=== PATIENT | female | born 1955 | race Caucasian/White ===

== ENCOUNTER 2020-01-09 12:26 | Outpatient (CLI) | payer BC, SELFPAY ==
--- NOTE | ~2020-01-09 | MMUS_ITS ---
EXAMINATION: MM diagnostic hans BI w jair, US breast RT limited HISTORY: Abnormal mammogram. TECHNIQUE: Additional 3-D tomosynthesis images of the breasts were performed and synthetic 2-D images were generated. CAD analysis was submitted and interpreted. High resolution right breast ultrasound was performed. COMPARISON: Comparison to multiple prior studies sequentially, with oldest reviewed study dated 11/2016. FINDINGS: MAMMOGRAPHIC FINDINGS: The breasts are heterogenously dense, which may obscure small masses. There are no suspicious masses, calcifications or architectural distortion in either breast to suggest malignancy. ULTRASOUND: Right breast ultrasound: At 9:00, 6 cm from the nipple, there is a stable complicated cyst measuring 3 mm. At 9:00, 7 cm from the nipple, there is an oval circumscribed hypoechoic mass measuring 5 mm without posterior features. There are circumscribed margins with parallel orientation. There is an adjacent 3 mm cyst. IMPRESSION: 1. Probable benign right breast masses. 2. Recommend 6 month follow-up right breast ultrasound BI-RADS category 3, probably benign findings. Reviewed, dictated and finalized at location A. IMPRESSION: 1. Probable benign right breast masses. 2. Recommend 6 month follow-up right breast ultrasound BI-RADS category 3, probably benign findings.
== END 2020-01-09 12:27 | disposition home or self-care (01) ==
LOC: ANHIMG 12:30
PROVIDERS: PCP Family Medicine; Visit Provider Nurse Practitioner Obstetrics & Gynecology
DX: N63.10 Unspecified lump in the right breast, unspecified quadrant (principal)
CPT/HCPCS: 76642; 77062; 77066; G0279

== ENCOUNTER 2020-07-15 09:38 | Outpatient (CLI) | payer BC, SELFPAY ==
--- NOTE | ~2020-07-15 | US_ITS ---
EXAMINATION: US breast RT limited HISTORY: Six-month follow-up for probably benign right breast masses TECHNIQUE: Limited ultrasound was performed in the breast at the 9:00 location. COMPARISON: 01/09/2020, 05/26/2019, 09/27/2018 FINDINGS: There is a stable 5 mm x 3 mm oval, circumscribed, parallel, hypoechoic mass with no senior specialist ior features or internal vascularity at the 9:00 location 7 cm from the nipple. An adjacent 3 mm mass with similar sonographic features is also stable. IMPRESSION: Stable, probably benign right breast masses. Follow-up targeted right breast ultrasound in six months is recommended. BI-RADS category 3, probably benign findings. Reviewed, dictated and finalized at location A. THESIA TECH IMPRESSION: Stable, probably benign right breast masses. Follow-up targeted right breast ul trasound in six months is recommended. BI-RADS category 3, probably benign findings.
== END 2020-07-15 09:39 | disposition home or self-care (01) ==
PROVIDERS: PCP Internal Medicine; Visit Provider Surgery
DX: N63.10 Unspecified lump in the right breast, unspecified quadrant (principal); R92.8 Other abnormal and inconclusive findings on diagnostic imaging of breast
CPT/HCPCS: 76642

== ENCOUNTER 2021-01-13 10:14 | Outpatient (CLI) | payer MEDICARE, SELFPAY ==
--- NOTE | ~2021-01-13 | MM_ITS ---
EXAMINATION: MM screening hasn BI w jair HISTORY: Screening mammogram TECHNIQUE: Craniocaudal and mediolateral oblique 3-D tomosynthesis images were obtained and synthetic 2-D images were generated. CAD analysis was submitted and interpreted. COMPARISON: 07/15/2020, 01/09/2020, 05/26/2019, 09/27/2018, 04/05/2018 BREAST PARENCHYMAL COMPOSITION: The breasts are heterogeneously dense, which may obscure small masses . FINDINGS: There is no evidence of suspicious mass, calcification, or architectural distortion to sugg est malignancy in either breast. There has been no suspicious interval change. IMPRESSION: 1. No mammographic evidence of malignancy. 2. Recommend routine screening mammography in one year. Of note, patient is due for limited right sabino ast ultrasound for follow-up of probably benign sonographically detected masses. BI-RADS Category 1: Negative Reviewed, dictated and finalized at location A. IMPRESSION: 1. No mammographic evidence of malignancy. 2. Recommend routine screening mammography in one year. Of note, patient is due for limited right breast ultrasound for follow-up of probably benign sonograph ically detected masses. BI-RADS Category 1: Negative
== END 2021-01-13 10:15 | disposition home or self-care (01) ==
LOC: ANHIMG 10:20
PROVIDERS: PCP Internal Medicine; Visit Provider Surgery
DX: Z12.31 Encounter for screening mammogram for malignant neoplasm of breast (principal)
CPT/HCPCS: 77063; 77067

== ENCOUNTER 2021-02-12 12:52 | Outpatient (CLI) | payer MEDICARE, SELFPAY ==
--- NOTE | ~2021-02-12 | US_ITS ---
US breast RT limited DATE: 02/12/2021 13:24 INDICATION: Follow-up of right breast masses TECHNIQUE: High-resolution ultrasound imaging targeted at 9:00 6 cm from nipple mass and 9:00 7 cm fr om nipple mass. COMPARISON: 07/15/2020 limited right breast ultrasound 01/09/2020, 05/26/2019, 09/27/2018 bilateral diagnostic digital mammogram and limited right breast ultras ound 04/05/2018 diagnostic right digital mammogram and limited right breast ultrasound FINDINGS: 9:00 6 cm from nipple: 2 x 4 mm circumscribed parallel hypoechoic lesion with central linear hyperech oic septum, stable since 05/26/2019, most consistent with benign process. 9:00 7 cm from nipple: 3.5 x 6.2 mm parallel oval circumscribed solid mass without internal color shelia w signal or shadowing. This is increased in size from 2.5 x 5 mm approximate dimension on 05/26/2019. Ultrasound-guided biopsy is recommended for this is enlarging postmenopausal solid mass. IMPRESSION: BI-RADS Category 4: Suspicious abnormality; biopsy should be considered for enlarging werner id mass at 9:[address] Johnson telephoned the report and ultrasound guided biopsy recommendation on 02/22/20[address] Casanova's nurse Pat. Reviewed, dictated and finalized at Location A. Reviewed, dictated and finalized at location A. IMPRESSION: BI-RADS Category 4: Suspicious abnormality; biopsy should be consid ered for enlarging solid mass at 9:[address] Johnson telephoned the report and ultrasound guided biopsy recommendation on at [address] Casanova's nurse Pat.
== END 2021-02-12 12:53 | disposition home or self-care (01) ==
LOC: ANHIMG 12:56
PROVIDERS: PCP Internal Medicine; Visit Provider Surgery
DX: N63.10 Unspecified lump in the right breast, unspecified quadrant (principal); R92.8 Other abnormal and inconclusive findings on diagnostic imaging of breast
CPT/HCPCS: 76642

== ENCOUNTER 2021-07-09 10:01 | Outpatient (CLI) | payer MEDICARE, SELFPAY ==
[2021-07-09 10:19] LABS: Basophils Percent Auto 0.8 % (0.2-1.2); Eosinophils Absolute Auto 0.2 K/mm3 (0-0.3); Eosinophils Percent Auto 3.1 % (0-4.4); Hematocrit 42.7 % (37.0-47.0); Hemoglobin 14.4 g/dL (12.0-15.0); Immature Granulocyte Absolute 0.02 K/mm3 (0.00-0.031); Immature Granulocyte Percent A 0.4 % (0-0.5); Lymphocytes Absolute Auto 0.82 K/mm3 (0.9-3.2); Mean Corpuscular HGB Conc 33.7 g/dl (32-36); Mean Corpuscular Hemoglobin 29.4 pg (26-34); Mean Corpuscular Volume 87.1 fl (80-100); Monocytes Absolute Auto 0.5 K/mm3 (0.1-0.6); Monocytes Percent Auto 10.6 % (2.6-8.5); Neutrophils Absolute Auto 3.5 K/mm3 (1.3-6.7); Neutrophils Percent Auto 69.1 % (45.5-73.1); Platelet Count Result 198 k/mm3 (150-375); Red Cell Distribution Width 12.5 % (11.5-14.5); White Blood Count 5.1 K/mm3 (4.5-10.0)
[2021-07-09 10:23] LABS: Blood Urea Nitrogen 12 mg/dL (8-26); Carbon Dioxide 23 mmol/L (22-30); Chloride 104 mmol/L (98-109); Estimated Glomerular Filt Rate > 60; Glucose 103 mg/dL (70-105); Potassium 4.3 mmol/L (3.5-4.9); Sodium 141 mmol/L (138-146)
[2021-07-09 11:08] LABS: Alanine Aminotransferase 30 U/L (4-35); Albumin Level 4.6 g/dL (3.5-5.1); Alkaline Phosphatase 74 U/L (38-126); Anion Gap 9 mmol/L (8-16); Aspartate Amino Transferase 29 U/L (14-36); Bilirubin,Total 0.4 mg/dL (0.2-1.3); Blood Urea Nitrogen 12 mg/dL (7-17); Calcium 9.7 mg/dL (8.4-10.2); Carbon Dioxide 25 mmol/L (22-30); Chloride 106 mmol/L (98-107); Estimated Glomerular Filt Rate > 60; Glucose 103 mg/dL (65-110); Potassium 4.5 mmol/L (3.4-5.0); Sodium 140 mmol/L (137-145)
== END 2021-07-09 10:02 | disposition home or self-care (01) ==
PROVIDERS: PCP Internal Medicine; Visit Provider Internal Medicine Hematology & Oncology
DX: D05.11 Intraductal carcinoma in situ of right breast (principal)
CPT/HCPCS: 36415; 80048; 80053; 85025

== ENCOUNTER 2021-10-03 11:27 | Outpatient (CLI) | payer MEDICARE, SELFPAY ==
--- NOTE | ~2021-10-03 | MM_ITS ---
EXAMINATION: MM diagnostic hans RT w jair HISTORY: History of right breast cancer TECHNIQUE: Craniocaudal, mediolateral, and mediolateral oblique 3-D tomosynthesis images of the right breast were performed and synthetic 2-D images were generated. CAD analysis was submitted and interp reted. COMPARISON: 01/13/2021, 01/09/2020, 05/26/2019 BREAST PARENCHYMAL COMPOSITION: The breasts are heterogeneously dense, which may obscure small masses . FINDINGS: There are changes of interval lumpectomy in the outer breast. No suspicious mass, calcifica tion, or architectural distortion are identified. A stable asymmetry is seen in the posterior third o f the slightly outer breast. IMPRESSION: 1. Changes of interval lumpectomy without mammographic evidence of malignancy. 2. Routine screening mammography is recommended. BI-RADS Category 2: Benign finding(s). Reviewed, dictated and finalized at location A. [facility]
== END 2021-10-03 11:28 | disposition home or self-care (01) ==
PROVIDERS: PCP Internal Medicine; Referring Provider Surgery; Visit Provider Internal Medicine Hematology & Oncology
DX: D05.11 Intraductal carcinoma in situ of right breast (principal)
CPT/HCPCS: 77061; 77065; G0279

== ENCOUNTER 2021-11-04 12:41 | Outpatient (CLI) | payer MEDICARE, SELFPAY ==
[2021-11-04 12:53] LABS: Basophils Percent Auto 0.7 % (0.2-1.2); Eosinophils Absolute Auto 0.1 K/mm3 (0-0.3); Eosinophils Percent Auto 2.3 % (0-4.4); Hematocrit 41.9 % (37.0-47.0); Hemoglobin 13.7 g/dL (12.0-15.0); Immature Granulocyte Absolute 0.01 K/mm3 (0.00-0.031); Immature Granulocyte Percent A 0.2 % (0-0.5); Lymphocytes Absolute Auto 1.02 K/mm3 (0.9-3.2); Lymphocytes Percent Auto 23.2 % (18.3-44.2); Mean Corpuscular HGB Conc 32.7 g/dl (32-36); Mean Corpuscular Hemoglobin 29.5 pg (26-34); Mean Corpuscular Volume 90.3 fl (80-100); Mean Platelet Volume 10.1 fl (7.4-10.4); Monocytes Absolute Auto 0.4 K/mm3 (0.1-0.6); Monocytes Percent Auto 8.7 % (2.6-8.5); Neutrophils Absolute Auto 2.9 K/mm3 (1.3-6.7); Neutrophils Percent Auto 64.9 % (45.5-73.1); Platelet Count Result 183 k/mm3 (150-375); Red Blood Count 4.64 M/mm3 (4.2-5.4); Red Cell Distribution Width 12.2 % (11.5-14.5); White Blood Count 4.4 K/mm3 (4.5-10.0)
[2021-11-04 12:56] LABS: Blood Urea Nitrogen 14 mg/dL (8-26); Carbon Dioxide 25 mmol/L (22-30); Chloride 102 mmol/L (98-109); Estimated Glomerular Filt Rate > 60; Glucose 136 mg/dL (70-105); Potassium 3.8 mmol/L (3.5-4.9); Sodium 141 mmol/L (138-146)
[2021-11-04 14:46] LABS: Alanine Aminotransferase 23 U/L (4-35); Albumin Level 4.4 g/dL (3.5-5.1); Alkaline Phosphatase 74 U/L (38-126); Anion Gap 9 mmol/L (8-16); Aspartate Amino Transferase 29 U/L (14-36); Bilirubin,Total 0.4 mg/dL (0.2-1.3); Blood Urea Nitrogen 14 mg/dL (7-17); Calcium 9.3 mg/dL (8.4-10.2); Carbon Dioxide 26 mmol/L (22-30); Chloride 104 mmol/L (98-107); Estimated Glomerular Filt Rate > 60; Glucose 133 mg/dL (65-110); Potassium 3.8 mmol/L (3.4-5.0); Sodium 139 mmol/L (137-145)
== END 2021-11-04 12:42 | disposition home or self-care (01) ==
LOC: ANHLAB 12:43
PROVIDERS: PCP Internal Medicine; Visit Provider Internal Medicine Hematology & Oncology
DX: D05.11 Intraductal carcinoma in situ of right breast (principal)
CPT/HCPCS: 36415; 80053; 85025

== ENCOUNTER → 2022-01-21 10:50 | Outpatient (CLI) | payer MEDICARE, SELFPAY ==
--- NOTE | ~2022-01-21 | DEXA_ITS ---
Bone Density Report Name: LIAN LOPEZ Age: 66 Sex: Female Ethnicity: White Date of : 1955 Indication: osteopenia; parental hip fracture; cancer; hysterectomy; postmenopausal Referring Provider: Manny, Salena Keith Study: Bone densitometry was performed. Exam Date: January 21, 2022 Accession number: [id number] Bone Density: Region BMD T-score Z-score Classification AP Spine (L1-L4) 0.772 -2.5 -0.7 Osteoporosis Femoral Neck (Left) 0.690 -1.4 0.1 Osteopenia Total Hip (Left) 0.848 -0.8 0.5 Normal Femoral Neck (Right) 0.652 -1.8 -0.2 Osteopenia Total Hip (Right) 0.824 -1.0 0.3 Normal Total Hip Mean 0.836 -0.9 0.4 Normal World Health Organization criteria for BMD impression classify patients as: Normal (T-score at or above -1.0), Osteopenia (T-score between -1.0 and -2.5), or Osteoporosis (T-score at or below -2.5). 10-year Fracture Risk: FRAX not reported because: Some T-score for Spine Total or Hip Total or Femoral Neck at or below -2.5 Previous Exams: Region Exam Age BMD T-score BMD Change BMD Change Date g/cm2 vs Baseline vs Previous AP Spine(L1-L4) 01/21/2022 66 0.772 -2.5 -0.094* -0.049 11/06/2016 60 0.821 -2.1 -0.045 -0.045 08/25/2007 51 0.866 -1.6 Total Hip(Left) 01/21/2022 66 0.848 -0.8 -0.133* -0.003 11/06/2016 60 0.851 -0.7 -0.131 -0.131 08/25/2007 51 0.982 0.3 Total Hip(Right) 01/21/2022 66 0.824 -1.0 -0.107* -0.020 11/06/2016 60 0.844 -0.8 -0.087 -0.087 08/25/2007 51 0.931 -0.1 *Denotes significance at 95% confidence level, LSC for AP Spine = 0.022 g/cm2, LSC for Total Hip = 0.027 g/cm2 Clinical Information Provided by Patient: Parent has had a hip fracture Has used the following medications: Vitamin D, Calcium, TOMOXIFEN Has the following medical conditions: Cancer, Hysterectomy Patient maximum height was 64 Menopause Age: 40 Drinks caffeinated beverages Onset of menses at age 13 Number of children 0 Impression: The patient has osteoporosis, based on the Total Spine T-score. The patient has risk factors, including: parental hip fracture. No significant bone loss was observed. Discussion: INCREASED RISK OF FRACTURE. BONE DENSITY IS UNDESIRABLY LOW AT ONE OR MORE SKELETAL SITES, CONSISTENT WITH POSTMENOPAUSAL OSTEOPOROSIS. This patient's lowest T-score meets the World Health Organizat
== END ==
PROVIDERS: PCP Internal Medicine; Visit Provider Nurse Practitioner Obstetrics & Gynecology
DX: Z78.0 Asymptomatic menopausal state (principal); M81.0 Age-related osteoporosis without current pathological fracture; M85.852 Other specified disorders of bone density and structure, left thigh; M85.851 Other specified disorders of bone density and structure, right thigh
CPT/HCPCS: 77080

== ENCOUNTER 2022-02-04 09:49 | Outpatient (CLI) | payer MEDICARE, SELFPAY ==
[2022-02-04 10:49] LABS: Basophils Percent Auto 0.6 % (0.2-1.2); Eosinophils Absolute Auto 0.1 K/mm3 (0-0.3); Eosinophils Percent Auto 2.1 % (0-4.4); Hematocrit 42.8 % (37.0-47.0); Hemoglobin 14.1 g/dL (12.0-15.0); Immature Granulocyte Absolute 0.02 K/mm3 (0.00-0.031); Immature Granulocyte Percent A 0.4 % (0-0.5); Lymphocytes Absolute Auto 1.24 K/mm3 (0.9-3.2); Lymphocytes Percent Auto 23.6 % (18.3-44.2); Mean Corpuscular HGB Conc 32.9 g/dl (32-36); Mean Corpuscular Hemoglobin 29.6 pg (26-34); Mean Corpuscular Volume 89.9 fl (80-100); Mean Platelet Volume 10.3 fl (7.4-10.4); Monocytes Absolute Auto 0.5 K/mm3 (0.1-0.6); Monocytes Percent Auto 9.5 % (2.6-8.5); Neutrophils Absolute Auto 3.4 K/mm3 (1.3-6.7); Neutrophils Percent Auto 63.8 % (45.5-73.1); Platelet Count Result 179 k/mm3 (150-375); Red Blood Count 4.76 M/mm3 (4.2-5.4); Red Cell Distribution Width 12.2 % (11.5-14.5); White Blood Count 5.3 K/mm3 (4.5-10.0)
[2022-02-04 10:56] LABS: Estimated Glomerular Filt Rate > 60
[2022-02-04 13:19] LABS: Alanine Aminotransferase 21 U/L (6-35); Albumin Level 4.6 g/dL (3.5-5.1); Alkaline Phosphatase 91 U/L (38-126); Anion Gap 8 mmol/L (8-16); Aspartate Amino Transferase 28 U/L (14-36); Bilirubin,Total 0.3 mg/dL (0.2-1.3); Blood Urea Nitrogen 18 mg/dL (7-17); Calcium 9.5 mg/dL (8.4-10.2); Carbon Dioxide 24 mmol/L (22-30); Chloride 108 mmol/L (98-107); Glucose 95 mg/dL (65-110); Potassium 4.1 mmol/L (3.4-5.0); Sodium 140 mmol/L (137-145)
== END 2022-02-04 09:50 | disposition home or self-care (01) ==
LOC: ANHLAB 09:51
PROVIDERS: PCP Internal Medicine; Visit Provider Internal Medicine Hematology & Oncology
DX: D05.11 Intraductal carcinoma in situ of right breast (principal)
CPT/HCPCS: 36415; 80053; 85025

== ENCOUNTER 2022-04-23 09:24 | Outpatient (CLI) | payer MEDICARE, SELFPAY ==
--- NOTE | ~2022-04-23 | MM_ITS ---
EXAMINATION: MM screening hans BI w jair HISTORY: Screening mammogram TECHNIQUE: Craniocaudal and mediolateral oblique 3-D tomosynthesis images were obtained and synthetic 2-D images were generated. CAD analysis was submitted and interpreted. COMPARISON: 10/03/2021 diagnostic right mammogram 02/12/2021 Limited right breast ultrasound 01/13/2021 bilateral screening mammogram 07/15/2020 limited right breast ultrasound 01/09/2020 diagnostic bilateral mammogram and limited right breast ultrasound 05/26/2019 bilateral diagnostic mammography and limited right breast ultrasound BREAST PARENCHYMAL COMPOSITION: The breasts are heterogeneously dense, which may obscure small masses . FINDINGS: There is a rounded fatty density 2.4 cm dimension in the outer mid right breast with surrou nding linear projections, consistent with postsurgical change including large oil cyst. No suspicious mass, architectural distortion, malignant calcification, skin thickening or retraction is noted otherwise. IMPRESSION: 1. Postoperative change of right breast. No mammographic evidence of malignancy. 2. Recommend routine screening mammography in one year. BI-RADS Category 2: Benign finding(s). Reviewed, dictated and finalized at location A. IMPRESSION: 1. Postoperative change of right breast. No mammographic evidence of malignancy . 2. Recommend routine screening mammography in one year. BI-RADS Category 2: Benign finding(s).
== END 2022-04-23 09:25 | disposition home or self-care (01) ==
PROVIDERS: PCP Internal Medicine; Visit Provider Surgery
DX: Z12.31 Encounter for screening mammogram for malignant neoplasm of breast (principal)
CPT/HCPCS: 77063; 77067

== ENCOUNTER 2022-06-10 12:43 | Outpatient (CLI) | payer MEDICARE, SELFPAY ==
[2022-06-10 13:05] LABS: Basophils Percent Auto 0.7 % (0.2-1.2); Eosinophils Absolute Auto 0.2 K/mm3 (0-0.3); Eosinophils Percent Auto 2.6 % (0-4.4); Hematocrit 44.1 % (37.0-47.0); Hemoglobin 14.2 g/dL (12.0-15.0); Immature Granulocyte Absolute 0.01 K/mm3 (0.00-0.031); Immature Granulocyte Percent A 0.2 % (0-0.5); Lymphocytes Absolute Auto 1.47 K/mm3 (0.9-3.2); Lymphocytes Percent Auto 25.4 % (18.3-44.2); Mean Corpuscular HGB Conc 32.2 g/dl (32-36); Mean Corpuscular Hemoglobin 29.3 pg (26-34); Mean Corpuscular Volume 91.1 fl (80-100); Mean Platelet Volume 10.3 fl (7.4-10.4); Monocytes Absolute Auto 0.4 K/mm3 (0.1-0.6); Monocytes Percent Auto 7.6 % (2.6-8.5); Neutrophils Absolute Auto 3.7 K/mm3 (1.3-6.7); Neutrophils Percent Auto 63.5 % (45.5-73.1); Platelet Count Result 187 k/mm3 (150-375); Red Blood Count 4.84 M/mm3 (4.2-5.4); Red Cell Distribution Width 12.3 % (11.5-14.5); White Blood Count 5.8 K/mm3 (4.5-10.0)
[2022-06-10 13:09] LABS: Blood Urea Nitrogen 15 mg/dL (8-26); Carbon Dioxide 26 mmol/L (22-30); Chloride 103 mmol/L (98-109); Estimated Glomerular Filt Rate > 60; Glucose 108 mg/dL (70-105); Ionized Calcium (POC) 1.26 mmol/L (1.11-1.31); Potassium 3.8 mmol/L (3.5-4.9); Sodium 143 mmol/L (138-146)
[2022-06-10 13:33] LABS: Alanine Aminotransferase 25 U/L (6-35); Albumin Level 4.5 g/dL (3.5-5.1); Alkaline Phosphatase 79 U/L (38-126); Anion Gap 15 mmol/L (8-16); Aspartate Amino Transferase 41 U/L (14-36); Bilirubin,Total 0.3 mg/dL (0.2-1.3); Blood Urea Nitrogen 15 mg/dL (7-17); Calcium 9.4 mg/dL (8.4-10.2); Carbon Dioxide 25 mmol/L (22-30); Chloride 102 mmol/L (98-107); Estimated Glomerular Filt Rate > 60; Glucose 108 mg/dL (65-110); Potassium 3.8 mmol/L (3.4-5.0); Sodium 142 mmol/L (137-145)
== END 2022-06-10 12:44 | disposition home or self-care (01) ==
LOC: ANHLAB 12:46
PROVIDERS: PCP Internal Medicine; Visit Provider Internal Medicine Hematology & Oncology
DX: D05.11 Intraductal carcinoma in situ of right breast (principal)
CPT/HCPCS: 36415; 80047; 80053; 85025

== ENCOUNTER 2022-12-02 14:14 | Outpatient (CLI) | payer MEDICARE, SELFPAY ==
[2022-12-02 14:21] LABS: Basophils Percent Auto 0.4 % (0.2-1.2); Eosinophils Absolute Auto 0.1 K/mm3 (0-0.3); Eosinophils Percent Auto 0.9 % (0-4.4); Hemoglobin 13.1 g/dL (12.0-15.0); Immature Granulocyte Absolute 0.01 K/mm3 (0.00-0.031); Immature Granulocyte Percent A 0.1 % (0-0.5); Lymphocytes Absolute Auto 1.14 K/mm3 (0.9-3.2); Lymphocytes Percent Auto 14.4 % (18.3-44.2); Mean Corpuscular HGB Conc 32.8 g/dl (32-36); Mean Corpuscular Hemoglobin 30.2 pg (26-34); Mean Corpuscular Volume 92.2 fl (80-100); Mean Platelet Volume 10.2 fl (7.4-10.4); Monocytes Absolute Auto 0.5 K/mm3 (0.1-0.6); Monocytes Percent Auto 6.3 % (2.6-8.5); Neutrophils Absolute Auto 6.2 K/mm3 (1.3-6.7); Neutrophils Percent Auto 77.9 % (45.5-73.1); Platelet Count Result 167 k/mm3 (150-375); Red Blood Count 4.34 M/mm3 (4.2-5.4); White Blood Count 7.9 K/mm3 (4.5-10.0)
[2022-12-02 14:25] LABS: Blood Urea Nitrogen 9 mg/dL (8-26); Carbon Dioxide 28 mmol/L (22-30); Chloride 102 mmol/L (98-109); Estimated Glomerular Filt Rate > 60; Glucose 116 mg/dL (70-105); Ionized Calcium (POC) 1.19 mmol/L (1.11-1.31); Potassium 3.7 mmol/L (3.5-4.9); Sodium 141 mmol/L (138-146)
[2022-12-02 16:27] LABS: Alanine Aminotransferase 30 U/L (6-35); Albumin Level 4.3 g/dL (3.5-5.1); Alkaline Phosphatase 51 U/L (38-126); Anion Gap 6 mmol/L (8-16); Aspartate Amino Transferase 27 U/L (14-36); Bilirubin,Total 0.4 mg/dL (0.2-1.3); Blood Urea Nitrogen 10 mg/dL (7-17); Calcium 8.9 mg/dL (8.4-10.2); Carbon Dioxide 30 mmol/L (22-30); Chloride 104 mmol/L (98-107); Estimated Glomerular Filt Rate > 60; Glucose 116 mg/dL (65-110); Potassium 3.8 mmol/L (3.4-5.0); Sodium 140 mmol/L (137-145)
== END 2022-12-02 14:15 | disposition home or self-care (01) ==
LOC: ANHLAB 14:17
PROVIDERS: PCP Internal Medicine; Visit Provider Internal Medicine Hematology & Oncology
DX: D05.11 Intraductal carcinoma in situ of right breast (principal)
CPT/HCPCS: 36415; 80047; 80053; 85025

== ENCOUNTER 2023-03-18 14:03 | Outpatient (CLI) | payer MEDICARE, SELFPAY ==
--- NOTE | 2023-03-23 11:51 | WPDHOLTEREM ---
Holter/Event Monitor Holter/Event Monitor Date of procedure: 03/18/23 Holter/Event Procedure: 48 Hr Holter Monitor Indications: Palpitations Conclusion: 1. 48 hour holter monitor on 03/18/23. 2. Predominant rhythm is sinus rhythm. HR range 49-133 bpm; average HR 82 bpm. 3. There are 287 premature supraventricular complexes and 18 supraventricular couplets. There are 11 episodes of atrial tachycardia, fastest at 188 bpm and longest lasting 9 beats. 4. There are 328 premature ventricular complexes and 15 ventricular trigeminy. No ventricular tachycardia. 5. No sinoatrial or atrioventricular blocks. No significant pauses greater than 2 secods. 6. No symptoms available for correlation.
== END 2023-03-18 14:04 | disposition home or self-care (01) ==
PROVIDERS: PCP Internal Medicine; Visit Provider Internal Medicine
DX: R00.2 Palpitations (principal)
CPT/HCPCS: 93225; 93226

== ENCOUNTER 2023-04-06 01:24 | Day surgery (SDC) | payer MEDICARE, SELFPAY ==
[2023-03-24 14:12] VITALS: BMI 31.0
[2023-04-06 07:51] VITALS: BP 136/73; PULSE 74; RESP 16; TEMP 36.3; O2SAT 98; BMI 32.3
[2023-04-06] MEDS: LACTATED RINGERS 1,000 ML 150 ML IV CONT (08:08)
--- NOTE | 2023-04-06 08:31 | WPDANESEPPF ---
Anes - Initial Pre Proc Eval Procedure: Operation Date: 04/06/23 09:15 Proposed Procedures p Esophagogastroduodenoscopy - Yogesh Matias MD Date/Time: 04/06/23 08:31 Surgeon: Yogesh Matias MD Pre Op Diagnosis: dysphagia Patient Data Age: 67 Gender: F Height: 1.6 m Weight: 82.9 kg Last Vital Signs Temp 97.4 F L 04/06/23 07:51 Pulse 74 04/06/23 07:51 Resp 16 04/06/23 07:51 BP 136/73 04/06/23 07:51 Pulse Ox 98 04/06/23 07:51 O2 Del Method Room Air 04/06/23 07:51 Allergies Allergy/AdvReac Type Severity Reaction Status Date / Time codeine Allergy Mild Vomiting Verified 04/06/23 07:49 erythromycin base Allergy Mild Hives Verified 04/06/23 07:49 Penicillins Allergy Mild Hives Verified 04/06/23 07:49 Home Medications Medication Instructions Recorded Confirmed Type ascorbate calcium (vitamin C) 500 500 mg PO DAILY 08/17/19 04/06/23 History mg tablet cholecalciferol (vitamin D3) 25 1,000 unit PO DAILY 08/17/19 04/06/23 History mcg (1,000 unit) capsule (Vitamin D3) magnesium gluconate 27 mg 27 mg PO BID 08/17/19 04/06/23 History magnesium (500 mg) tablet (Mag-G) multivitamin 1 tablet PO DAILY 08/17/19 04/06/23 History biotin 2,500 mcg capsule 5,000 mg PO DAILY 02/18/22 04/06/23 History alendronate 70 mg tablet (Fosamax) 70 mg PO WEEKLY 04/24/22 04/06/23 History cetirizine 10 mg capsule (Zyrtec) 10 mg PO DAILY 07/22/22 04/06/23 History tamoxifen 20 mg tablet 20 mg PO DAILY 07/22/22 04/06/23 History levothyroxine 150 mcg tablet 150 mcg PO DAILY #90 tabs 01/06/23 04/06/23 Rx alprazolam 0.5 mg tablet 0.5 mg PO DAILY PRN anxiety #30 03/03/23 04/06/23 Rx tabs ibuprofen 200 mg tablet 400 mg PO HS PRN other 03/24/23 04/06/23 History melatonin 3 mg tablet 3 mg PO HS PRN Insomnia 03/24/23 04/06/23 History zinc 50 mg tablet 50 mg PO DAILY 03/24/23 04/06/23 History Patient hx anesthesia problems: none Family hx anesthesia problems: none Results Review: All pre-operative results and documents have been reviewed as part of the pre-operative evaluation. PMFSH Past Medical History Medical History Hypothyroidism Surgical History Surgical History H/O repair of right rotator cuff (~2010) H/O: hysterectomy History of appendectomy Status post right breast lumpectomy 04/14/2021, 2.5 cm G1 DCIS Family History Family History Sibling Family history of lupus erythematosus Father Prostate carcinoma Melanoma Other Gastric cancer Maternal Uncle Other Breast cancer Paternal Aunts x 2 Social History Social History Smoking status: Never smoker Second hand tobacco smoke exposure: No Alcohol intake: never Substance use: never Substance use type: does not use Lack of Transportation: No Lack of Food: Never True Current Housing: I Have Housing Concerned About Future Housing: No Difficulty Paying Gas/Electric Bills: No Difficulty Paying for Meds: No Currently Unemployed: No Education: Associate Degree Difficulty w/ Childcare or Family Care: No Living arrangements: alone Spiritual care concerns: No Anes - Eval Final PreProcedure Day of Procedure 04/06/23 08:31 Patient weight: normal Heart: regular rate and rhythm Lungs: clear to auscultation Airway: Mallampati scale class II Neurological: alert and oriented Last oral intake: >/= 8 hours ASA classification: III Emergent: no Anesthetic plan: proceed Anesthesia type and monitoring: general GIVS and standard monitoring Results Review: All pre-operative results and documents have been reviewed as part of the pre-operative evaluation. Informed Consent: The patient's anesthetic plan and its attendant risks and benefits were discussed with the patient/family/POA. Qu
--- NOTE | 2023-04-06 08:32 | PM.HPGS ---
History of Present Illness History of Present Illness Consent: Risks, benefits, and alternatives have been discussed and questions answered. Patient agrees to proceed with procedure. Chief complaint: dysphagia Narrative: Christelle Maira is a 67 year old female Referred for EGD because of dysphagia. Patient reports she swallows food without difficulty. Occasionally when she swallows liquids she will cough and choke. She sometimes cannot get her breath. She has to be careful of this consistently. She denies any weight loss. She has had no bleeding. This been present for perhaps several years. Review of Systems Review of Systems: review of systems noncontributory. [facility] Past Medical History Medical History Hypothyroidism Surgical History Surgical History H/O repair of right rotator cuff (~2010) H/O: hysterectomy History of appendectomy Status post right breast lumpectomy 04/14/2021, 2.5 cm G1 DCIS Family History Family History Sibling Family history of lupus erythematosus Father Prostate carcinoma Melanoma Other Gastric cancer Maternal Uncle Other Breast cancer Paternal Aunts x 2 Social History Social History Smoking status: Never smoker Second hand tobacco smoke exposure: No Alcohol intake: never Substance use: never Substance use type: does not use Lack of Transportation: No Lack of Food: Never True Current Housing: I Have Housing Concerned About Future Housing: No Difficulty Paying Gas/Electric Bills: No Difficulty Paying for Meds: No Currently Unemployed: No Education: Associate Degree Difficulty w/ Childcare or Family Care: No Living arrangements: alone Spiritual care concerns: No Meds Home Medications and Allergies Home Medications Medication Instructions Recorded Confirmed Type ascorbate calcium (vitamin C) 500 500 mg PO DAILY 08/17/19 04/06/23 History mg tablet cholecalciferol (vitamin D3) 25 1,000 unit PO DAILY 08/17/19 04/06/23 History mcg (1,000 unit) capsule (Vitamin D3) magnesium gluconate 27 mg 27 mg PO BID 08/17/19 04/06/23 History magnesium (500 mg) tablet (Mag-G) multivitamin 1 tablet PO DAILY 08/17/19 04/06/23 History biotin 2,500 mcg capsule 5,000 mg PO DAILY 02/18/22 04/06/23 History alendronate 70 mg tablet (Fosamax) 70 mg PO WEEKLY 04/24/22 04/06/23 History cetirizine 10 mg capsule (Zyrtec) 10 mg PO DAILY 07/22/22 04/06/23 History tamoxifen 20 mg tablet 20 mg PO DAILY 07/22/22 04/06/23 History levothyroxine 150 mcg tablet 150 mcg PO DAILY #90 tabs 01/06/23 04/06/23 Rx alprazolam 0.5 mg tablet 0.5 mg PO DAILY PRN anxiety #30 03/03/23 04/06/23 Rx tabs ibuprofen 200 mg tablet 400 mg PO HS PRN other 03/24/23 04/06/23 History melatonin 3 mg tablet 3 mg PO HS PRN Insomnia 03/24/23 04/06/23 History zinc 50 mg tablet 50 mg PO DAILY 03/24/23 04/06/23 History Allergies Allergy/AdvReac Type Severity Reaction Status Date / Time codeine Allergy Mild Vomiting Verified 04/06/23 07:49 erythromycin base Allergy Mild Hives Verified 04/06/23 07:49 Penicillins Allergy Mild Hives Verified 04/06/23 07:49 Vital Signs Vital Signs - 24 hr 04/06/23 07:51 Temperature 97.4 F L Pulse Rate 74 Respiratory Rate 16 Blood Pressure 136/73 Pulse Oximetry 98 Oxygen Delivery Room Air Exam Narrative: Physical exam reveals patient to be alert. Vital signs stable. HEENT exam is unremarkable. Patient is anicteric. Lungs are clear to auscultation and percussion. Heart is without murmur or extra sounds. Abdomen bowel sounds are present soft nontender with no organomegaly. Assessment and Plan Assessment and plan (1) Dysphagia: Code(s): R13.10 - Dysphagia, unspecified Status: Acu
[2023-04-06 09:19] VITALS: BP 126/64; PULSE 75; RESP 23; O2SAT 95
[2023-04-06 09:29] VITALS: BP 134/82; PULSE 73; RESP 22; O2SAT 96
[2023-04-06 09:39] VITALS: BP 128/80; PULSE 69; RESP 19; O2SAT 94
== END 2023-04-06 09:47 | disposition home or self-care (01) ==
PROVIDERS: PCP Internal Medicine; Visit Provider Internal Medicine Gastroenterology
PROC: 0DJ08ZZ Inspection of Upper Intestinal Tract, Via Natural or Artificial Opening Endoscopic (ICD-10-PCS; CPT 43235; principal; 2023-04-06 09:15)
DX: Q39.4 Esophageal web (principal); K44.9 Diaphragmatic hernia without obstruction or gangrene; E03.9 Hypothyroidism, unspecified; Z85.3 Personal history of malignant neoplasm of breast
CPT/HCPCS: 43450; 43235; J2704; J7120

== ENCOUNTER 2023-04-27 14:07 | Outpatient (CLI) | payer MEDICARE, SELFPAY ==
[2023-04-27 14:20] LABS: Basophils Absolute Auto 0.1 K/mm3 (0.0-0.1); Basophils Percent Auto 0.7 % (0.2-1.2); Eosinophils Absolute Auto 0.1 K/mm3 (0-0.3); Eosinophils Percent Auto 1.5 % (0-4.4); Hemoglobin 13.3 g/dL (12.0-15.0); Immature Granulocyte Absolute 0.02 K/mm3 (0.00-0.031); Immature Granulocyte Percent A 0.3 % (0-0.5); Lymphocytes Absolute Auto 1.83 K/mm3 (0.9-3.2); Lymphocytes Percent Auto 25.8 % (18.3-44.2); Mean Corpuscular HGB Conc 33.3 g/dl (32-36); Mean Corpuscular Volume 90.3 fl (80-100); Mean Platelet Volume 10.1 fl (7.4-10.4); Monocytes Absolute Auto 0.5 K/mm3 (0.1-0.6); Monocytes Percent Auto 6.5 % (2.6-8.5); Neutrophils Absolute Auto 4.6 K/mm3 (1.3-6.7); Neutrophils Percent Auto 65.2 % (45.5-73.1); Platelet Count Result 182 k/mm3 (150-375); Red Blood Count 4.43 M/mm3 (4.2-5.4); Red Cell Distribution Width 12.3 % (11.5-14.5); White Blood Count 7.1 K/mm3 (4.5-10.0)
[2023-04-27 16:47] LABS: Alanine Aminotransferase 32 U/L (6-35); Alkaline Phosphatase 59 U/L (38-126); Anion Gap 5 mmol/L (8-16); Aspartate Amino Transferase 30 U/L (14-36); Bilirubin,Total 0.2 mg/dL (0.2-1.3); Blood Urea Nitrogen 15 mg/dL (7-17); Calcium 8.8 mg/dL (8.4-10.2); Carbon Dioxide 25 mmol/L (22-30); Chloride 106 mmol/L (98-107); Estimated Glomerular Filt Rate > 60; Glucose 126 mg/dL (65-110); Potassium 3.9 mmol/L (3.4-5.0); Sodium 136 mmol/L (137-145)
== END 2023-04-27 14:08 | disposition home or self-care (01) ==
LOC: ANHLAB 14:09
PROVIDERS: PCP Internal Medicine; Visit Provider Internal Medicine Hematology & Oncology
DX: D05.11 Intraductal carcinoma in situ of right breast (principal)
CPT/HCPCS: 36415; 80053; 85025

== ENCOUNTER 2023-04-27 14:20 | Outpatient (CLI) | payer MEDICARE, SELFPAY ==
--- NOTE | ~2023-04-27 | MM_ITS ---
EXAMINATION: MM screening hans BI w jair HISTORY: Screening mammogram TECHNIQUE: Craniocaudal and mediolateral oblique 3-D tomosynthesis images were obtained and synthetic 2-D images were generated. CAD analysis was submitted and interpreted. COMPARISON: 04/23/2022 bilateral screening mammogram 10/03/2021 diagnostic right mammogram 02/12/2021 Limited right breast ultrasound 01/13/2021 bilateral screening mammogram BREAST PARENCHYMAL COMPOSITION: There are scattered areas of fibroglandular density. FINDINGS: History of right partial mastectomy for breast cancer with chronic scarring and partially c alcified postoperative benign right outer mid breast oil cyst. There is no evidence of suspicious mas s, calcification, or architectural distortion to suggest malignancy in either breast. There has been no suspicious interval change. IMPRESSION: 1. Status post right partial mastectomy for breast cancer. No mammographic evidence of malignancy. 2. Recommend routine screening mammography in one year. BI-RADS Category 2: Benign finding(s). Reviewed, dictated and finalized at location A. IMPRESSION: 1. Status post right partial mastectomy for breast cancer. No mammographic evid ence of malignancy. 2. Recommend routine screening mammography in one year. BI-RADS Category 2: Benign finding(s).
== END 2023-04-27 14:21 | disposition home or self-care (01) ==
PROVIDERS: PCP Internal Medicine; Visit Provider Internal Medicine Hematology & Oncology
DX: Z12.31 Encounter for screening mammogram for malignant neoplasm of breast (principal)
CPT/HCPCS: 36415; 77063; 77067; 80053; 85025

== ENCOUNTER 2023-05-11 10:31 | Outpatient (CLI) | payer MEDICARE, SELFPAY ==
--- NOTE | ~2023-05-11 | XR_ITS ---
EXAMINATION: XR barium swallow modified DATE: 05/11/2023 11:04 INDICATION: Dysphagia. TECHNIQUE: The patient was given barium-containing material of multiple consistencies to swallow by t he speech pathologist while I performed fluoroscopy. Fluoroscopy exposure time was 0.8 minutes. The n umber of fluoroscopy images saved to the PACS was 1. Dose-area product was 0.621 Gy-cm^2. FINDINGS: The oral stage, pharyngeal stage, and cervical/esophageal stage of the swallow are normal. IMPRESSION: 1. Normal modified barium swallow. 2. Please refer to the speech therapy report for recommendations. Reviewed, dictated and finalized at location A.
--- NOTE | 2023-05-11 11:23 | REHSTMBS ---
Assessment and note entered by Steffany Perez, EXECUTIVE RELATIONS SPECIALIST Modified Barium Swallow Evaluation Feeding Type Recommended Oral Food Consistency Regular, Level 7 Liquid Consistency Thin (0) ST Clinical Summary MODIFIED BARIUM SWALLOW STUDY This patient was seen for a Modified Barium Swallow study at the request of her physician. She states she has been becoming choked on liquids and even her own saliva. She denied difficulty swallowing solid food or pills at this time. Patient was presented with thin liquid contrast medium per spoon, cup, and per straw, pudding mixed with semi-solid contrast medium and then cracker and fruit cocktail pieces coated with the semi-solid mixture. She exhibited no signs of penetration or aspiration throughout this evaluation and no significant pharyngeal residue during or after completion of the swallows. Results indicate this patient's swallowing skills to be within normal limits. She may remain on a regular diet and liquid consistencies. Patient was instructed in the use of head flexion to prevent random penetration/choking on thin liquids. She was instructed to not speak with food in the mouth, avoid sour foods such as salad dressings and venkatesh slaw with vinegar as this can trigger irritation with cough, do not turn head with food in the mouth, and keep chin somewhat neutral to flexed in order to prevent the liquid/syrup from fruit and other mixed consistencies (i.e. cereal in milk) from rolling posterior to the opening of the airway. Patient voiced understanding of recommendations. Results did not indicate that swallowing exercises were necessary at this time and therefore no further Speech Therapy is indicated. Patient is referred back to her physician for further assessment of her complaints. Thank you for this referral.
== END 2023-05-11 10:32 | disposition home or self-care (01) ==
PROVIDERS: PCP Internal Medicine; Visit Provider Internal Medicine Gastroenterology
DX: R13.10 Dysphagia, unspecified (principal)
CPT/HCPCS: 92611

== ENCOUNTER → 2023-08-31 14:18 | Outpatient (CLI) | payer MEDICARE, SELFPAY ==
--- NOTE | ~2023-08-31 | MR_ITS ---
EXAMINATION: MR knee LT wo con DATE: 08/31/2023 14:56 INDICATION: Derangement of unspecified medial meniscus with medial left knee pain TECHNIQUE: Magnetic resonance imaging (MRI) of the left knee was performed without intravenous contra st. Sequences included coronal PD-weighted FSE, coronal PD-weighted FS FSE, sagittal T2-weighted FSE , sagittal PD-weighted FS FSE and axial PD weighted fat saturated FSE. COMPARISON: None. FINDINGS: Medial compartment: Mild medial extrusion of the medial meniscal body. Small partial-thickness radial tear involving the caudal two thirds of the body of the medial meniscus. There is partial thickness chondral ulceration with mild chondral surface irregularity involving greater than 50% the cartilage thickness anteriorly and less than 50% at the central weightbearing medial femoral condyle. Additional mild partial-thick ness chondral ulceration at the anterior half of the medial tibial plateau. Small region of partial-t hickness chondral fissuring at the medial margin of the posterior weightbearing medial femoral condyl e. Lateral compartment: Tiny focus of increased signal at the innermost free edge of the lateral meniscal body which could re present focal fraying versus a very small radial tear. Partial-thickness cartilage loss with smooth c hondral surface at the posterior medial aspect of the lateral tibial plateau. Shallow chondral ulcera tion and deep fissuring at the posterior weightbearing lateral femoral condyle. Patellofemoral compartment: Articular cartilage is normal. Ligaments and tendons: Anterior and posterior cruciate ligaments are normal. The medial collateral ligament and fibular harrison ateral ligament complex are normal. The extensor mechanism is normal. The visualized medial and later al hamstring tendons as well as the iliotibial band are normal. Fluid: Small left knee joint effusion at the suprapatellar pouch. Incidentally noted is a small suprapatella r plical band. No loose osteochondral bodies identified. Small Clarke's cyst. Osseous/other: Normal marrow signal. No fracture or pathologic marrow replacing process. IMPRESSION: 1. Radial tear at the body of the medial meniscus. 2. Tiny radial tear versus fraying along the innermost free edge of the body of the lateral meniscus. 3. Mild osteoarthritis with moderate grade chondromalacia in the medial and to lesser degree lateral compartments. 4. Small Clarke's cyst. Reviewed, dictated and finalized at location A. IATIVE MEDICINE PHYSICIAN
== END ==
PROVIDERS: PCP Orthopaedic Surgery; Visit Provider Orthopaedic Surgery
DX: S83.242A Other tear of medial meniscus, current injury, left knee, initial encounter (principal); M17.12 Unilateral primary osteoarthritis, left knee; M94.262 Chondromalacia, left knee; M71.22 Synovial cyst of popliteal space [Baker], left knee
CPT/HCPCS: 73721

== ENCOUNTER 2023-09-10 00:35 | Day surgery (SDC) | payer MEDICARE, SELFPAY ==
--- NOTE | 2023-09-02 09:23 | PC.NURSE ---
Report to the Outpatient Waiting Room, entrance under the green pavilion located off [facility], at time __1300 on date _09/10/23 . Planned Procedure Time: __1500 . Time changes happen often and if your time is changed the preop area will call you the afternoon before. - You and your visitor will be asked to self-screen and do not enter if you have any COVID symptoms. - A mask is optional within the hospital at this time. Patients may have clear liquids (water, carbonated beverages, clear teas, apple juice) until 3 hours prior to surgery( 1200 PM)with a maximum of 20 ounces. - No food from midnight until time of surgery - Infants may have breast milk until 4 hours before surgery, infant formula 6 hours prior to surgery. - Children will be allowed to drink immediately following surgery. If applicable, please bring a bottle or sippy cup to assist with drinking. Juice, water, soda, and popsicles are readily available. For infants on formula, please bring formula the day of surgery. Pacifiers are allowed. Take the following medications with a SIP of water the morning of surgery: ___LEVOTHYROXINE DO NOT STOP ANY OF YOUR OTHER PRESCRIPTION MEDICATIONS PRIOR TO SURGERY ?EXCEPT THE FOLLOWING Medications to discontinue per physician ALL VITAMINS AND SUPPLEMENTS 3 DAYS PRE OP LAST DOSE 09/06/23__HOLD IBUPROFEN 7 DAYS PRE OP PER DR BRUMFIELD LAST DOSE 09/02/23 MAY TAKE TYLENOL IF NEEDED FOR PAIN Please no make-up, nail yi, hairspray, perfume, deodorant, or body powder the day of surgery. No jewelry (including any body piercings) or valuables the day of surgery, leave them at home. Please take a shower or bath the night before, or the morning of, surgery with an antibacterial soap. Wear comfortable, loose fitting clothing. Children are encouraged to wear pajamas. - Jewelry must be removed prior to entering the operating room. Rings and piercings that are not removed may be cut off. - The hospital will not accept responsibility for valuables. - Please leave all valuables, including medications, at home the day of surgery. If you are going home after surgery, a licensed driver recruiter must drive you home. - NO public transportation without another adult if you receive anesthesia. - We recommend that an adult stay with you for 24 hours following discharge. - We also recommend that you do not drive, make important decision, drink alcoholic beverages, or take any drugs that were not prescribed by your health care provider for at least 24 hours after your discharge time. For Pediatric surgeries, we recommend two adults accompany the child home. Follow any additional instructions given to you from your surgeon. If you or anyone in your household have experienced Covid symptoms in the past week, please notify your surgeon or the nurse liaison at the phone number below for possible testing. Telephone instructions given to __PATIENT and asked if any additional questions and then verbalized understanding. Patient advised to call surgeon office or pre surgery nurse liaison [phone] if any additional questions.
[2023-09-02 09:29] VITALS: BMI 31.4
[2023-09-10] VITALS (8 sets, daily range): BP systolic 102–153; BP diastolic 59–96; PULSE 63–94; RESP 11–16; TEMP 36.2–36.6; O2SAT 97–100
--- NOTE | 2023-09-10 11:57 | WPDHPUPDATE1 ---
History and Physical Update Update Date/Time: 09/10/23 11:57 History and Physical has been reviewed, including an updated exam of the patient. There are NO changes in the patient's condition. Risks, benefits, and alternatives have been discussed and questions answered. Patient agrees to proceed with procedure.
[2023-09-10] MEDS: ACETAMINOPHEN 500 MG TABLET 1000 MG PO (13:56)
[2023-09-10] MEDS: LACTATED RINGERS 1,000 ML 30 ML IV CONT (14:15)
--- NOTE | 2023-09-10 14:19 | WPDANESEPPF ---
Anes - Initial Pre Proc Eval Procedure: Operation Date: 09/10/23 15:00 Proposed Procedures p Left Knee Arthroscopic Partial Medial Meniscectomy - Raudel Francois MD Date/Time: 09/10/23 14:19 Surgeon: Raudel Francois MD Pre Op Diagnosis: left knee meniscal tear Patient Data Age: 67 Gender: F Height: 1.61 m Weight: 81.65 kg Allergies Allergy/AdvReac Type Severity Reaction Status Date / Time codeine Allergy Mild Vomiting Verified 09/10/23 13:14 erythromycin base Allergy Mild Hives Verified 09/10/23 13:14 Penicillins Allergy Mild Hives Verified 09/10/23 13:14 Home Medications Medication Instructions Recorded Confirmed Type ascorbate calcium (vitamin C) 500 500 mg PO DAILY 08/17/19 09/10/23 History mg tablet cholecalciferol (vitamin D3) 25 1,000 unit PO DAILY 08/17/19 09/10/23 History mcg (1,000 unit) capsule (Vitamin D3) magnesium gluconate 27 mg 27 mg PO HS 08/17/19 09/10/23 History magnesium (500 mg) tablet (Mag-G) multivitamin 1 tablet PO DAILY 08/17/19 09/10/23 History biotin 2,500 mcg capsule 5,000 mg PO DAILY 02/18/22 09/10/23 History alendronate 70 mg tablet (Fosamax) 70 mg PO WEEKLY 04/24/22 09/10/23 History cetirizine 10 mg capsule (Zyrtec) 10 mg PO DAILY 07/22/22 09/10/23 History tamoxifen 20 mg tablet 20 mg PO DAILY 07/22/22 09/10/23 History ibuprofen 200 mg tablet 400 mg PO HS PRN Pain 03/24/23 09/10/23 History melatonin 3 mg tablet 5 mg PO HS PRN Insomnia 03/24/23 09/10/23 History zinc 50 mg tablet 50 mg PO DAILY 03/24/23 09/10/23 History levothyroxine 150 mcg tablet 150 mcg PO DAILY #90 tabs 07/05/23 09/10/23 Rx alprazolam 0.5 mg tablet 0.5 mg PO PRN PRN anxiety 09/02/23 09/02/23 History cyanocobalamin (vitamin B-12) 3,000 mcg PO DAILY 09/02/23 09/10/23 History 3,000 mcg capsule Patient hx anesthesia problems: none Family hx anesthesia problems: none Results Review: All pre-operative results and documents have been reviewed as part of the pre-operative evaluation. 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 Family History Family History Sibling Family history of lupus erythematosus Father Prostate carcinoma Melanoma Other Gastric cancer Maternal Uncle Other Breast cancer Paternal Aunts x 2 Social History Social History Smoking status: Never smoker Second hand tobacco smoke exposure: No Alcohol intake: never Substance use: never Substance use type: does not use Lack of Transportation: No Lack of Food: Never True Current Housing: I Have Housing Concerned About Future Housing: No Difficulty Paying Gas/Electric Bills: No Difficulty Paying for Meds: No Currently Unemployed: No Education: Associate Degree Difficulty w/ Childcare or Family Care: No Living arrangements: alone Spiritual care concerns: No Anes - Eval Final PreProcedure Day of Procedure 09/10/23 14:19 Patient weight: obese Heart: regular rate and rhythm Lungs: clear to auscultation Airway: Mallampati scale class II Neurological: alert and oriented Last oral intake: >/= 8 hours ASA classification: III Emergent: no Anesthetic plan: proceed Anesthesia type and monitoring: general LMA and standard monitoring Results Review: All pre-operative results and documents have been reviewed as part of the pre-operative evaluation. Informed Consent: The patient's anesthetic plan and its attendant risks and benefits were discussed with the patient/family/POA. Questions were solicited and answers provided to the satisfaction of the pa
[2023-09-10] MEDS: KETOROLAC 15 MG/ML VIAL (*BKC) IV PUSH (14:20)
[2023-09-10] MEDS: ceFAZolin 2 GM/D5W 50 ML 2 GM/50 ML BAG IVPB (14:44)
[2023-09-10] MEDS: BUPIVACAINE/EPINEPHRINE 0.5% 10 ML VIAL 30 ML INFILTRATE (15:00)
--- NOTE | 2023-09-10 15:39 | W.PM.PROC2 ---
Procedure Note - Detailed Date of Procedure 09/10/23 Pre-op Diagnosis left knee meniscal tear Post-op Diagnosis Same Procedure Performed Arthroscopic partial medial meniscectomy, left knee. Surgeon Raudel Francois MD Anesthesia General Findings Extensive complex medial meniscus tear with displaced flap. Lateral compartment benign. Moderate synovitis. Medial femur chondromalacia grade 2, medial tibia grade 1. Lateral femur chondromalacia grade 0, lateral tibia grade 0. Patellar grade 0, trochlea grade 1. Description of Procedure The patient was identified and the surgical site confirmed and signed in the preoperative holding area. Antibiotics were started per protocol, and the patient was brought to the operative room and transferred to the OR table. A general anesthetic was administered. Supine position with the operative lower extremity position in the leg srinivasan after placement of a well padded tourniquet. The leg support was lowered and the contralateral limb was supported with a soft bolster. The knee was prepped and draped in the usual sterile fashion. A time-out was performed. The portal sites were marked and infiltrated with 0.5% Marcaine 20 mL. The limb was exsanguinated and the tourniquet inflated to 300 mL Hg. Standard inferolateral and inferomedial portals were established. Inflow was obtained with the saline pump. The camera was introduced. Diagnostic inspection of the joint was accomplished. The meniscus was debrided with the arthroscopic shaver and punches until stable. The arthroscopic instruments were removed. The tourniquet released and wounds closed with subcutaneous 4-0 Monocryl absorbable suture. Steri strips and a sterile dressing were applied. A light elastic wrap was placed. The patient was extubated and brought to the recovery room in stable condition. Estimated Blood Loss 5 Drains No Complications No immediate complications Condition Stable Disposition PACU [facility] Billing Surgery - Charge Forward: Surgery Billing
== END 2023-09-10 17:16 | disposition home or self-care (01) ==
PROVIDERS: PCP Internal Medicine; Visit Provider Orthopaedic Surgery
PROC: (CPT 29870; principal; 2023-09-10 15:00)
DX: S83.232A Complex tear of medial meniscus, current injury, left knee, initial encounter (principal); M65.9 Synovitis and tenosynovitis, unspecified; M94.262 Chondromalacia, left knee; E03.9 Hypothyroidism, unspecified
CPT/HCPCS: 29881; A9270; J0690; J1100; J1170; J1200; J1885; J2250; J2405; J2704; J3010; J7120

== ENCOUNTER 2023-11-05 11:18 | Outpatient (CLI) | payer MEDICARE, SELFPAY ==
[2023-11-05 11:41] LABS: Basophils Percent Auto 0.4 % (0.2-1.2); Eosinophils Absolute Auto 0.1 K/mm3 (0-0.3); Eosinophils Percent Auto 1.2 % (0-4.4); Hemoglobin 13.7 g/dL (12.0-15.0); Immature Granulocyte Absolute 0.02 K/mm3 (0.00-0.031); Immature Granulocyte Percent A 0.2 % (0-0.5); Lymphocytes Absolute Auto 2.14 K/mm3 (0.9-3.2); Lymphocytes Percent Auto 25.7 % (18.3-44.2); Mean Corpuscular HGB Conc 32.6 g/dl (32-36); Mean Corpuscular Hemoglobin 29.4 pg (26-34); Mean Corpuscular Volume 90.1 fl (80-100); Mean Platelet Volume 10.6 fl (7.4-10.4); Monocytes Absolute Auto 0.6 K/mm3 (0.1-0.6); Monocytes Percent Auto 7.2 % (2.6-8.5); Neutrophils Absolute Auto 5.4 K/mm3 (1.3-6.7); Neutrophils Percent Auto 65.3 % (45.5-73.1); Platelet Count Result 165 k/mm3 (150-375); Red Blood Count 4.66 M/mm3 (4.2-5.4); Red Cell Distribution Width 12.2 % (11.5-14.5); White Blood Count 8.3 K/mm3 (4.5-10.0)
[2023-11-05 11:45] LABS: Blood Urea Nitrogen 16 mg/dL (8-26); Carbon Dioxide 26 mmol/L (22-30); Chloride 103 mmol/L (98-109); Estimated Glomerular Filt Rate > 60; Glucose 91 mg/dL (70-105); Ionized Calcium (POC) 1.09 mmol/L (1.11-1.31); Potassium 4.1 mmol/L (3.5-4.9); Sodium 142 mmol/L (138-146)
[2023-11-05 12:18] LABS: Alanine Aminotransferase 35 U/L (6-35); Albumin Level 4.2 g/dL (3.5-5.1); Alkaline Phosphatase 58 U/L (38-126); Anion Gap 9 mmol/L (8-16); Aspartate Amino Transferase 35 U/L (14-36); Bilirubin,Total 0.4 mg/dL (0.2-1.3); Blood Urea Nitrogen 17 mg/dL (7-17); Calcium 9.4 mg/dL (8.4-10.2); Carbon Dioxide 25 mmol/L (22-30); Chloride 105 mmol/L (98-107); Estimated Glomerular Filt Rate > 60; Glucose 92 mg/dL (65-110); Potassium 4.1 mmol/L (3.4-5.0); Sodium 139 mmol/L (137-145)
[2023-11-10 07:30] LABS: CA 15-3 10 U/mL (<32)
== END 2023-11-05 11:19 | disposition home or self-care (01) ==
LOC: ANHLAB 11:26
PROVIDERS: PCP Internal Medicine; Visit Provider Internal Medicine Hematology & Oncology
DX: D05.11 Intraductal carcinoma in situ of right breast (principal)
CPT/HCPCS: 36415; 80047; 80053; 85025; 86300

== ENCOUNTER 2024-03-06 14:05 | Outpatient (CLI) | payer MEDICARE, SELFPAY ==
--- NOTE | ~2024-03-06 | XR_ITS ---
XR knee RT min 4V Ordering provider: Raudel Francois MD History: . M17.11 -pain medial patellar region, no known inj . Comparison: July 22, 2022 FINDINGS: BONES: No acute fracture or dislocation. JOINT SPACES: Narrowing of the medial compartment with moderate to severe osteoarthritic changes. SOFT TISSUES: Normal. IMPRESSION: No acute osseous abnormality right knee. moderate to severe osteoarthritic changes. Reviewed, dictated and finalized at location A.
--- NOTE | ~2024-03-06 | XR_ITS ---
XR knee LT min 4V Ordering provider: Raudel Francois MD History: . Z98.89pain medialpatellar region,leftmeniscus repair . Comparison: None. FINDINGS: BONES: No acute fracture or dislocation. JOINT SPACES: Narrowing of the medial compartment. SOFT TISSUES: Normal. IMPRESSION: No acute osseous abnormality left knee. Mild to moderate osteoarthritic changes. Reviewed, dictated and finalized at location A.
== END 2024-03-06 14:06 | disposition home or self-care (01) ==
LOC: ANHIMG 14:10
PROVIDERS: PCP Internal Medicine; Visit Provider Orthopaedic Surgery
DX: M17.0 Bilateral primary osteoarthritis of knee (principal); Z98.890 Other specified postprocedural states
CPT/HCPCS: 73564

== ENCOUNTER 2024-05-01 13:55 | Outpatient (CLI) | payer MEDICARE, SELFPAY ==
--- NOTE | ~2024-05-01 | DEXA_ITS ---
Bone Density Report Name: LIAN LOPEZ Age: 68 Sex: Female Ethnicity: White Date of : 1955 Indication: postmenopausal; screening for osteoporosis; parental hip fracture; height loss; cancer; hysterectomy; Referring Provider: AMERICO DAVISON Study: Bone densitometry was performed. Exam Date: May 01, 2024 Accession number: [id number] Bone Density: Region BMD T-score Z-score Classification AP Spine(L1-L4) 0.906 -1.3 0.7 Osteopenia Femoral Neck (Left) 0.689 -1.4 0.3 Osteopenia Total Hip (Left) 0.832 -0.9 0.5 Normal Femoral Neck (Right) 0.729 -1.1 0.6 Osteopenia Total Hip (Right) 0.801 -1.2 0.3 Osteopenia Total Hip Mean 0.817 -1.1 0.4 Osteopenia World Health Organization criteria for BMD impression classify patients as: Normal (T-score at or above -1.0), Osteopenia (T-score between -1.0 and -2.5), or Osteoporosis (T-score at or below -2.5). 10-year Fracture Risk: FRAX not reported because: Treated for osteoporosis Clinical Information Provided by Patient: Parent has had a hip fracture Is being treated for osteoporosis Has used the following medications: Fosamax (i.e. alendronate), Vitamin D, Calcium Has the following medical conditions: Cancer, Hysterectomy Patient maximum height was 64 Menopause Age: 40 Drinks caffeinated beverages Onset of menses at age 13 Number of children 0 Impression: The patient has low bone mass, based on the Left Femoral Neck T-score. The patient has risk factors, including: parental hip fracture. Discussion: It is important to ask patients whether they are taking their medications and to encourage continued and appropriate compliance with their osteoporosis therapies to reduce fracture risk. It is also important to review their risk factors and encourage appropriate calcium and vitamin D intakes, exercise, fall prevention and other lifestyle measures. Follow-Up: Consider a repeat BMD and Vertebral Fracture Assessment (VFA) exam in 2 years or sooner if medically necessary, to reassess this patient's status. Reported by: SLY on 05/01/2024 3:14:00 PM. Reviewed, dictated and finalized at location AEdward BARRIOS
--- NOTE | ~2024-05-01 | MM_ITS ---
EXAMINATION: MM screening hans BI w jair HISTORY: Screening TECHNIQUE: Craniocaudal and mediolateral oblique 3-D tomosynthesis images were obtained and synthetic 2-D images were generated. CAD analysis was submitted and interpreted. COMPARISON: Comparison to multiple prior studies sequentially, with oldest reviewed study dated 05/26. BREAST PARENCHYMAL COMPOSITION: Dense: The breasts are heterogeneously dense, which may obscure small masses FINDINGS: There is fat necrosis in the right breast consistent with previous lumpectomy. There is no evidence of suspicious mass, calcification, or architectural distortion to suggest malignancy in eith er breast. There has been no suspicious interval change. IMPRESSION: 1. No mammographic evidence of malignancy. 2. Recommend routine screening mammography in one year. BI-RADS Category 2: Benign finding(s). Reviewed, dictated and finalized at location B.
== END 2024-05-01 13:56 | disposition home or self-care (01) ==
PROVIDERS: PCP Internal Medicine; Visit Provider Internal Medicine Hematology & Oncology
DX: Z12.31 Encounter for screening mammogram for malignant neoplasm of breast (principal); D05.11 Intraductal carcinoma in situ of right breast; Z78.0 Asymptomatic menopausal state; M85.88 Other specified disorders of bone density and structure, other site; M85.852 Other specified disorders of bone density and structure, left thigh; M85.851 Other specified disorders of bone density and structure, right thigh
CPT/HCPCS: 36415; 77063; 77067; 77080; 80048; 85025; 86300

== ENCOUNTER 2024-05-01 15:11 | Outpatient (CLI) | payer MEDICARE, SELFPAY ==
[2024-05-01 15:26] LABS: Basophils Percent Auto 0.4 % (0.2-1.2); Eosinophils Absolute Auto 0.1 K/mm3 (0-0.3); Eosinophils Percent Auto 1.6 % (0-4.4); Hematocrit 39.7 % (37.0-47.0); Immature Granulocyte Absolute 0.02 K/mm3 (0.00-0.031); Immature Granulocyte Percent A 0.3 % (0-0.5); Lymphocytes Absolute Auto 2.38 K/mm3 (0.9-3.2); Lymphocytes Percent Auto 31.2 % (18.3-44.2); Mean Corpuscular HGB Conc 32.7 g/dl (32-36); Mean Corpuscular Hemoglobin 29.7 pg (26-34); Mean Corpuscular Volume 90.6 fl (80-100); Mean Platelet Volume 10.4 fl (7.4-10.4); Monocytes Absolute Auto 0.7 K/mm3 (0.1-0.6); Monocytes Percent Auto 9.6 % (2.6-8.5); Neutrophils Absolute Auto 4.4 K/mm3 (1.3-6.7); Neutrophils Percent Auto 56.9 % (45.5-73.1); Platelet Count Result 181 k/mm3 (150-375); Red Blood Count 4.38 M/mm3 (4.2-5.4); Red Cell Distribution Width 12.9 % (11.5-14.5); White Blood Count 7.6 K/mm3 (4.5-10.0)
[2024-05-01 16:32] LABS: Anion Gap 12 mmol/L (4-12); Blood Urea Nitrogen 19 mg/dL (7-17); Calcium 9.3 mg/dL (8.4-10.2); Carbon Dioxide 25 mmol/L (22-30); Chloride 102 mmol/L (98-107); Estimated Glomerular Filt Rate > 60; Glucose 105 mg/dL (65-110); Potassium 3.9 mmol/L (3.4-5.0); Sodium 139 mmol/L (137-145)
[2024-05-04 03:15] LABS: CA 15-3 11 U/mL (<32)
== END 2024-05-01 15:12 | disposition home or self-care (01) ==
LOC: ANHLAB 15:12
PROVIDERS: Nurse Practitioner Family; PCP Internal Medicine; Visit Provider Internal Medicine Hematology & Oncology
DX: C50.911 Malignant neoplasm of unspecified site of right female breast (principal)
CPT/HCPCS: 36415; 80048; 85025; 86300

== ENCOUNTER 2024-11-14 13:08 | Outpatient (CLI) | payer MEDICARE, SELFPAY ==
[2024-11-14 13:24] LABS: Basophils Percent Auto 0.5 % (0.2-1.2); Eosinophils Absolute Auto 0.1 K/mm3 (0-0.3); Eosinophils Percent Auto 1.5 % (0-4.4); Hematocrit 39.6 % (37.0-47.0); Hemoglobin 12.8 g/dL (12.0-15.0); Immature Granulocyte Absolute 0.02 K/mm3 (0.00-0.031); Immature Granulocyte Percent A 0.2 % (0-0.5); Lymphocytes Absolute Auto 2.83 K/mm3 (0.9-3.2); Lymphocytes Percent Auto 32.7 % (18.3-44.2); Mean Corpuscular HGB Conc 32.3 g/dl (32-36); Mean Corpuscular Hemoglobin 29.8 pg (26-34); Mean Corpuscular Volume 92.3 fl (80-100); Mean Platelet Volume 10.3 fl (7.4-10.4); Monocytes Absolute Auto 0.7 K/mm3 (0.1-0.6); Monocytes Percent Auto 8.6 % (2.6-8.5); Neutrophils Absolute Auto 4.9 K/mm3 (1.3-6.7); Neutrophils Percent Auto 56.5 % (45.5-73.1); Platelet Count Result 183 k/mm3 (150-375); Red Blood Count 4.29 M/mm3 (4.2-5.4); Red Cell Distribution Width 12.3 % (11.5-14.5); White Blood Count 8.7 K/mm3 (4.5-10.0)
[2024-11-14 13:28] LABS: Blood Urea Nitrogen 12 mg/dL (8-26); Carbon Dioxide 25 mmol/L (22-30); Chloride 104 mmol/L (98-109); Estimated Glomerular Filt Rate > 60; Glucose 110 mg/dL (70-105); Ionized Calcium (POC) 1.14 mmol/L (1.11-1.31); Sodium 140 mmol/L (138-146)
--- OUTSIDE RECORDS SUMMARY | 2024-11-14 14:31 | XMS_ITS | Clinical Summary ---
Author Organization [facility] Address [address] [place] [address] Care Team Providers Care Cut Out And Marking Machine Operator Name Role Phone Caleb Elizabeth MD Primary Care Provider [phone] Allergies Active Allergy Reactions Criticality Noted Date Comments Codeine Nausea Only 04/07/2021 Erythromycin Throat swelling 04/07/2021 Penicillins Throat swelling 04/07/2021 Medications levothyroxine 200 MCG tablet Take 200 mcg by mouth daily. 12/18/2020 Active magnesium oxide 400 (241.3 Mg) MG tablet Take 400 mg by mouth daily. 2 tablets daily Active Ascorbic Acid (VITAMIN C) 100 MG tablet Take 100 mg by mouth daily. Active Cyanocobalamin (B-12) 2000 MCG Tab Take 1 tablet by mouth daily. Active vitamin D3, cholecalciferol , (VITAMIN D-3) 10 MCG (400 UNIT) tablet Take 400 Units by mouth daily. Active melatonin 5 MG tablet Take 5 mg by mouth nightly as needed. Active calcium citrate 950 (200 CA) MG Tab tablet 950 mg 2 (two) times daily. Active ibuprofen 600 MG tablet Take 600 mg by mouth every 6 (six) hours as needed for Pain. Active Active Problems No known active problems Family History Medical History Relation Comments Liver Disease Brother Heart Father stents, pacemake r, several bypass surgeries No Known Problems Mother Breast Cancer Paternal Aunt 1 age 50-60 Breast Cancer Paternal Aunt 2 age 50-60 Heart Sister afib Lupus Sister Relation Status Comments Brother Alive Father Alive Mother Alive Paternal Aunt 1 Paternal Aunt 2 Sister Alive Social History Tobacco Use Types Packs/Day Years Used Date Smoking Tobacco: Never Smokeless Tobacco: Never Alcohol Use Standard Drinks/Week Comments Not Currently 0 (1 standard drink = 0.6 oz pur e alcohol) rarely- special occasion Comments No Sex and Gender Information Value Date Recorded Sex Assigned at Not on file Legal Sex Female 11:17 AM CDT Gender Identity Not on file Sexual Orientation Not on file Last Filed Vital Signs Vital Sign Reading Time Taken Comments Blood Pressure 157/81 04/14/2021 10:00 AM CDT Pulse 65 04/14/2021 10:00 AM CDT Temperature 36.1 C (97 F) 04/14/2021 10:00 AM CDT Respiratory Rate 16 04/14/2021 10:00 AM CDT Oxygen Saturation 99% 04/14/2021 10:00 AM CDT Inhaled Oxygen Concentration - - Weight 82.1 kg (181 lb) 04/14/2021 7:02 AM CDT Height 160 cm (5' 3 ) 04/14/2021 7:02 AM CDT Body Mass Index 32.06 04/14/2021 7:02 AM CDT Plan of Treatment Upcoming Encounters Date Type Department Care Team (Late st Contact Info) Description 03/21/2025 10:20 AM CDT Office Visit [facility] [place] [address] [place] [address] [address] [place] [address] [place] [address] [place] [address] [address] [place] [address] Health Maintenance Due Date Last Done Comments Colorectal Cancer Screening Colonoscopy (10 Years) 1955 Hepatitis C 12/16/1973 DTaP, Tdap and Td Vaccines ( 1 - Tdap) 12/16/1974 Zoster Vaccines (1 of 2) 12/16/2005 Annual Medicare Wellness Visit 12/16/2020 Dexa Scan (General) 12/16/2020 Pneumococcal Vaccine: 65+ Years (1 of 1 - PCV) 12/16/2020 Mammogram Screening 03/11/2023 03/11/2021 COVID-19 Vaccine (3 - 2023-2 5 season) 2024 12/15/2020, 11/22/2020 Influenza Adult (#1) 2024 10/15/2017 RSV Immunization or 60+ Years (1 - 1-dose 75+ series) 12/16/2030 Meningococcal B Vaccine Aged Out No l onger eligible based on patient's age to complete this topic Meningococcal Vaccine Aged Out No jazmine vitor eligible based on patient's age to complete this topic RSV Immunizations Under 20 Months Aged Out No longer eligible b ased on patient's age to complete this topic Procedures Procedure Name Priority Date/Time Associated Diagnosis Comments MG DIAGNOSTIC RT DIGI Routine 03/11/2021 2:52 PM CDT Mass of right breast Abnormal mammogram from Last 3 Months or Most Recently Relevant to Health Maintenance Results * MG DIAGNOSTIC RT DIGI (03/11/2021 2:52 PM CDT) Anatomical Region Laterality Modality Breast Right Mammography 03/11/2021 2:44 PM CDT Impressions 03/11/2021 2:47 PM CDT IMPRESSION: Post biopsy as described. Recommendation: 1: Clinical correlation Right Return for Routine Follow-Up: No Assessment: Post procedure mammogram for marker placement. Referred By: SINDY CASANOVA Interpreted By: Ronnell Smart MD, 03/11/2021 2:44 PM Narrative 03/11/2021 2:47 PM CDT Examination: Digital right diagnostic mammogram. Clinical history: Postbiopsy. Comparison: Right breast ultrasound, 02/12/2021; digital mammograms, 01/13/2021 (both exams from [facility]). Technique:CC and true lateral right digital mammograms . Tissue density: The breast tissue is heterogeneously dense. Findings: Tissue marker is now in place near the 9:00 position concordant with the mammographically occult sonographic target site. There are the expected postbiopsy changes. No hematoma is present. Benign-appearing calcifications again evident. us Sindy Casanova MD MAMMO Final Result from Last 3 Months or Most Recently Relevant to Health Maintenance Insurance MEDICARE [facility] Care Teams Cut Out And Marking Machine Operator Relationship Specialty Start Date End Date Caleb Elizabeth MD [address] [place] [address] PCP - General INTERNAL MEDICINE 03/11/21
--- OUTSIDE RECORDS SUMMARY | 2024-11-14 14:32 | XMS_ITS | Encounter Summary ---
Author Organization [facility] Address [address] [place] [address] Care Team Providers Care Salon Shampoo Assistant Name Role Phone Caleb Elizabeth DO Primary Care Provider [phone] Encounter Details Date Type Department Care Team (Late st Contact Info) Description 11/11/2024 External Device Data [place] ABSTRACTION Provider, Abstract NO ADDRESS ON FILE Social History Tobacco Use Types Packs/Day Years Used Date Smoking Tobacco: Never Smokeless Tobacco: Never Alcohol Use Standard Drinks/Week Comments Never 0 (1 standard drink = 0.6 oz pur e alcohol) Comments No Sex and Gender Information Value Date Recorded Sex Assigned at Not on file Legal Sex Female 3:04 PM CDT Gender Identity Not on file Sexual Orientation Not on file documented as of this encounter Plan of Treatment Upcoming Encounters Date Type Department Care Team (Late st Contact Info) Description 05/22/2025 11:45 AM CDT Office Visit [facility] Oncology and Hematology - [place] [address] [place] [address] [place] [address] [place] [address] [address] [place] [address] documented as of this encounter Visit Diagnoses Not on filedocumented in this encounter Care Teams Salon Shampoo Assistant Relationship Specialty Start Date End Date Caleb Elizabeth DO [address] [facility] [address] [place] [phone] PCP - General Internal Medicine 05/06/21 documented as of this encounter
--- OUTSIDE RECORDS SUMMARY | 2024-11-14 14:32 | XMS_ITS | Clinical Summary ---
Author Organization [facility] Address [address] [place] [address] Care Team Providers Care Kitchen Lead Name Role Phone Caleb Elizabeth MD Primary Care Provider [phone] Alma Erickson FIELD COLLECTOR Unavailable [phone] Allergies Active Allergy Reactions Criticality Noted Date Comments Codeine Nausea & Vomiting,Na usea And Vomiting,Nausea only High 04/07/2021 Erythromycin Anaphylaxis,Swelling High 04/07/2021 Penicillins Hives,Swelling High 04/07/2021 Medications ascorbic acid (VITAMIN C) 100 mg tablet Take 1 tablet (100 mg total) by mouth daily Active calcium citrate (CALCITRATE) 950 mg (200 mg of elemental calcium) tablet 1 tablet (950 mg total) 2 (two) times a day Active pramipexole (MIRAPEX) 0.25 mg tablet 5 Active latanoprost (XALATAN) 0.005 % ophthalmic solution INSTILL ONE DROP INTO BOTH EYES EVERY NIGHT AT BEDTIME 4 Active tamoxifen (NOLVADEX) 20 mg tablet Take 1 tablet (20 mg total) by mouth daily Active levothyroxine (SYNTHROID) 150 mcg tablet Take 1 tablet (150 mcg total) by mouth prism inspector before breakfast Active alendronate (FOSAMAX) 70 mg tabletIndication s:Age-related osteoporosis without current pathological fracture Take 1 tablet (70 mg total) by mouth every 7 days Take in the morning with a full glass of water, on an empty stomach, and do not take anything else by mouth or lie down for the next 30 min. 12 tablet 3 5 10/20/19 26 Active alendronate (FOSAMAX) 70 mg tablet TAKE 1 TABLET BY MOUTH ONE TIME PER WEEK 10/20/19 25 Discontin ued(Reord er) Active Problems No known active problems Encounters Date Type Department Care Team Description 11/06/2024 Results Follow[place]Up [facility] [address] [phone] Joselin Grider MD 10/20/2024 10:30 AM CLAM SORTER Office Visit [facility] Special[facility] of [address] [address] Joselin Grider MD Age-related osteoporosis without current pathological fracture (Primary Dx); Vitamin D deficiency; Acquired hypothyroidism from Last 3 Months Surgical History Surgery Date Site/Laterality Comments BREAST BIOPSY 03/11/2021 Right BREAST LUMPECTOMY HYSTERECTOMY Family History Medical History Relation Name Comments Diabetes Father Heart attack Father Osteoporosis Mother Relation Name Status Comments Father Mother Social History Tobacco Use Types Packs/Day Years Used Date Smoking Tobacco: Never Smokeless Tobacco: Never Tobacco Cessation:Counseling Given: Not Answered Comments Unknown Sex and Gender Information Value Date Recorded Sex Assigned at Not on file Legal Sex Female 8:41 AM CLAM SORTER Gender Identity Not on file Sexual Orientation Not on file Obstetrics History Last Filed Vital Signs Vital Sign Reading Time Taken Comments Blood Pressure 124/60 10/20/2024 10:23 AM CLAM SORTER Pulse 80 10/20/2024 10:23 AM CLAM SORTER Temperature - - Respiratory Rate 16 10/20/2024 10:23 AM CLAM SORTER Oxygen Saturation - - Inhaled Oxygen Concentration - - Weight 84.4 kg (186 lb) 10/20/2024 10:23 AM CLAM SORTER Height 160 cm (5' 3 ) 10/20/2024 10:23 AM CLAM SORTER Body Mass Index 32.95 10/20/2024 10:23 AM CLAM SORTER Plan of Treatment Health Maintenance Due Date Last Done Comments Colon Cancer Screening-Colonoscopy 1955 Depression Screening 1955 Fall Risk Assessment 1955 Hepatitis C Screening 1955 Osteoporosis Screening-Bone Density Scan 1955 DTaP/Tdap/Td Vaccine (1 - Tdap) 12/16/1966 Hepatitis B Screening 12/16/1973 Pneumococcal vaccine 65+ (1 of 2 - PCV) 12/16/1974 Well Visit 65+ 12/16/2020 Zoster Vaccine (2 of 2) 10/06/2021 08/11/2021 Covid-19 Vaccine (8 - Pfizer risk season) 2025 09/08/2024, 07/02/2023, 07/09/2022, Additional history exists Breast Cancer Screening-Mammogram 05/01/2025 024 Influenza Vaccine Completed 05/12/2024, , 06/05/2022, Additional history exists Procedures Procedure Name Priority Date/Time Associated Diagnosis Comments THYROID FUNCTION CASCADE Routine 10/26/2024 12:01 PM CLAM SORTER Age-related osteoporosis without current pathological fracture Acquired hypothyroidism VITAMIN D 25 HYDROXY Routine 10/26/2024 12:01 PM CLAM SORTER Vitamin D deficiency PTH Routine 10/26/2024 12:01 PM CLAM SORTER Age-related osteoporosis without current pathological fracture COMPREHENSIVE METABOLIC PANEL Routine 10/26/2024 12:01 PM CLAM SORTER Age-related osteoporosis without current pathological fracture from Last 3 Months Results * Thyroid Function [place] (10/26/2024 12:01 PM CLAM SORTER) [facility] Signature TSH 2.210 0.450 - 4.500 uIU/mL [facility] - 01 Comment: No apparent thyroid disorder. Additional testing not indicated. In rare instances, Secondary Hypothyroidism as well as Subclinical Hypothyroidism have been reported in some patients with normal TSH values. Blood 10/26/2024 12:0 1 PM CLAM SORTER 10/26/2024 Narrative [facility] - 10/27/2024 8:11 AM CLAM SORTER Performed at: [facility] [id number] Steam Pipe Fitter: Aron Busch PhD, Phone: [phone] us Joselin Ulloa MD LAB BLOOD ORDERABLE S Final Result [facility] - * Vitamin D 25 hydroxy (10/26/2024 12:01 PM CLAM SORTER) Vitamin D, 25-Hydroxy 65.4 30.0 - 100.0 ng/mL [facility] - 01 Comment: Vitamin D deficiency has been defined by the [place] of Medicine and an Endocrine Society practice guideline as a level of serum 25-OH vitamin D less than 20 ng/mL (1,2). The Endocrine Society went on to further define vitamin D insufficiency as a level between 21 and 29 ng/mL (2). 1. IOM ([place] of Medicine). 2010. Dietary reference intakes for calcium and D. [place]: The National Academies Press. 2. Deja MF, Chevy LINDSEY, Amalia ROTHMAN, et al. Evaluation, treatment, and prevention of vitamin D deficiency: an Endocrine Society clinical practice guideline. JCEM. 2010; 96(7):1911-30. Blood 10/26/2024 12:0 1 PM CLAM SORTER 10/26/2024 Narrative [facility] - 10/27/2024 7:09 AM CLAM SORTER Performed at: - [address] [id number] Steam Pipe Fitter: Aron Busch PhD, Phone: [phone] us Joselin Ulloa MD LAB BLOOD ORDERABLE S Final Result [facility] - * PTH (10/26/2024 12:01 PM CLAM SORTER) PTH Intact 17 15 - 65 pg/mL [facility] - 01 Blood 10/26/2024 12:0 1 PM CLAM SORTER 10/26/2024 Narrative [facility] - 10/27/2024 10:10 AM CLAM SORTER Performed at: - [address] [id number] Steam Pipe Fitter: Aron Busch PhD, Phone: [phone] Specimen Comment: A courtesy copy of this report has been sent to [phone] us Joselin Ulloa MD LAB BLOOD ORDERABLE S Final Result [facility] - 01 * Comprehensive metabolic panel (10/26/2024 12:01 PM CLAM SORTER) Pathologist [facility] Glucose 93 70 - 99 mg/dL [facility] - 01 BUN 11 8 - 27 mg/dL [facility] - 01 Creatinine, Serum 0.58 0.57 - 1.00 mg/dL [facility] - 01 eGFR 99 >59 mL/min/1.73 [facility] - 01 BUN/creat ratio 19 12 - 28 [facility] - 01 Sodium 140 134 - 144 mmol/L [facility] - 01 Potassium, sr 4.1 3.5 - 5.2 mmol/L [facility] - 01 Chloride 103 96 - 106 mmol/L [facility] - 01 CO2 24 20 - 29 mmol/L [facility] - 01 Calcium 9.5 8.7 - 10.3 mg/dL [facility] - 01 Protein, sr 6.9 6.0 - 8.5 g/dL [facility] - 01 Albumin 4.2 3.9 - 4.9 g/dL [facility] - 01 Globulin, Total 2.7 1.5 - 4.5 g/dL [facility] - 01 Bilirubin, Total 0.2 0.0 - 1.2 mg/dL [facility] - 01 Alk phos 47 44 - 121 IU/L [facility] - 01 AST 21 0 - 40 IU/L [facility] - 01 ALT 25 0 - 32 IU/L [facility] - 01 Blood 10/26/2024 12:0 1 PM CLAM SORTER 10/26/2024 Narrative [facility] - 10/27/2024 8:11 AM CLAM SORTER Performed at: 01 - [facility] [id number] Steam Pipe Fitter: Aron Busch PhD, Phone: [phone] us Joselin Ulloa MD LAB BLOOD ORDERABLE S Final Result [facility] - 01 from Last 3 Months Insurance [facility] MEDICARE [facility] Care Teams Kitchen Lead Relationship Specialty Start Date End Date Caleb Elizabeth MD [address] [place] [address] PCP - General Internal Medicine 04/07/18 Alma Erickson NP [address] [place] [address] Nurse Practitioner Obstetrics and Gynecology 08/17/24
--- OUTSIDE RECORDS SUMMARY | 2024-11-14 14:32 | XMS_ITS | Clinical Summary ---
Author Organization [facility] Address [address] [facility] [place] [place] [address] Care Team Providers Care Sink Cutter Name Role Phone Caleb Elizabeth DO Primary Care Provider [phone] Allergies Active Allergy Reactions Criticality Noted Date Comments Codeine Nausea and Vomiting High 05/06/2021 Erythromycin Anaphylaxis High 05/06/2021 Penicillins Hives High 05/06/2021 Medications levothyroxine 200 mcg tablet TAKE 1 TABLET BY MOUTH EVERY DAY 1 Active ascorbic acid, vitamin C, (VITAMIN C) 1,000 mg Tablet Take 1,000 mg by mouth daily. Active ferrous sulfate 134 mg (27 mg iron) Tablet Take 134 mg by mouth. Active CALCIUM ACETATE,PHOSPH AT BIND, ORAL Take by mouth. A ctive MAGNESIUM CITRATE ORAL Take by mouth. Ac tive cetirizine (ZyrTEC) 10 mg tablet Take 10 mg by mouth daily. Active cyanocobalamin (VITAMIN B-12) 100 mcg tablet Take 100 mcg by mouth daily. Active alendronate (FOSAMAX) 70 mg tablet TAKE 1 TABLET EVERY WEEK BY ORAL ROUTE FOR 90 DAYS. 2 Active timoloL maleate (TIMOPTIC) 0.5% solution Administer 1 Drop in both eyes. 4 Active tamoxifen (NOLVADEX) 20 mg tablet Take 1 Tablet (20 mg) by mouth daily. 90 Tablet 1 5 Active tamoxifen (NOLVADEX) 20 mg tablet Take 1 Tablet (20 mg) by mouth daily. 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 Encounters Date Type Department Care Team Description 11/14/2024 1:15 PM CDT Office Visit [facility] Oncology and Hematology [facility] [address] [place] [address] Lee Lovett MD Ductal carcinoma in situ (DCIS) of right breast (Primary Dx); Visit for screening mammogram 11/11/2024 External Device Data STL ABSTRACTION Provider, Abstract 11/10/2024 External Device Data STL ABSTRACTION Provider, Abstract 11/08/2024 External Device Data STL ABSTRACTION Provider, Abstract 11/07/2024 External Device Data STL ABSTRACTION Provider, Abstract 10/24/2024 External Device Data [place] ABSTRACTION Provider, Abstract 09/27/2024 External Device Data [place] ABSTRACTION Provider, Abstract 09/26/2024 External Device Data ST[place] ABSTRACTION Provider, Abstract 09/20/2024 External Device Data STL ABSTRACTION Provider, Abstract from Last 3 Months Family History Medical History Relation Name Comments Diabetes Brother Diabetes Father Heart Disease Father Melanoma Father Prostate Cancer Father Relation Name Status Comments Brother Alive Father Alive Mother Alive Sister Alive Social History Tobacco Use Types Packs/Day Years Used Date Smoking Tobacco: Never Smokeless Tobacco: Never Tobacco Cessation:Counseling Given: Not Answered Alcohol Use Standard Drinks/Week Comments Never 0 (1 standard drink = 0.6 oz pur e alcohol) Comments No Sex and Gender Information Value Date Recorded Sex Assigned at Not on file Legal Sex Female 3:04 PM CDT Gender Identity Not on file Sexual Orientation Not on file Last Filed Vital Signs Vital Sign Reading Time Taken Comments Blood Pressure 132/83 11/14/2024 1:28 PM CDT Pulse 85 11/14/2024 1:28 PM CDT Temperature 36 C (96.8 F) 11/14/2024 1:28 PM CDT Respiratory Rate 15 11/14/2024 1:28 PM CDT Oxygen Saturation 97% 11/14/2024 1:28 PM CDT Inhaled Oxygen Concentration - - Weight 85.7 kg (189 lb) 11/14/2024 1:28 PM CDT Height 161.3 cm (5' 3.5 ) 06/10/2022 1:14 PM CDT Body Mass Index 32.95 06/10/2022 1:14 PM CDT Plan of Treatment Upcoming Encounters Date Type Department Care Team (Late st Contact Info) Description 05/22/2025 11:45 AM CDT Office Visit [facility] Oncology and Hematology - [place] [address] [facility] [address] [place] [address] Lee Lovett MD [address] [place] [address] Health Maintenance Due Date Last Done Comments Pre-Diabetes and Diabetes Screening 1955 DTAP/TDAP/TD VACCINES (1 - Tdap) 12/16/1974 Traditional Medicare (ACO) A nnual Wellness Visit 12/16/1974 COLORECTAL SCREENING 12/16/2000 Colorectal Cancer Screening 12/16/2000 FIT-DNA Q 3 years 12/16/2000 FIT/FOBT Q 1 year 12/16/2000 Flex Sig/CT Colonography Q 5 years 12/16/2000 PNEUMOCOCCAL VACCINE 50+ YEA RS (1 of 1 - PCV) 12/16/2005 ZOSTER VACCINE (1 of 2) 12/16/2005 INFLUENZA VACCINE (#1) 2024 06/25/2021 BREAST CANCER SCREENING 05/01/2025 05/01/20 24, 04/27/2023, 03/11/2021 RSV VACCINE (60+ or ) (1 - 1-dose 75+ series) 12/16/2030 OSTEOPOROSIS SCREENING Completed 05/01/2024, 2021 Procedures Procedure Name Priority Date/Time Associated Diagnosis Comments MAMMO SCREENING BILAT Routine 05/01/2024 4:06 PM CDT from Last 3 Months or Most Recently Relevant to Health Maintenance Results * MAMMO SCREENING BILAT (05/01/2024 4:06 PM CDT) Anatomical Region Laterality Modality Breast Bilateral Other Lee Lovett MD MAMMO ORDERABLES Final Result from Last 3 Months or Most Recently Relevant to Health Maintenance Insurance MEDICARE PART A AND B [facility] SUPP MEDICARE PART A AND B [facility] SUPP Care Teams Sink Cutter Relationship Specialty Start Date End Date Caleb Elizabeth DO [address] [facility] [address] [place] [phone] PCP - General Internal Medicine 05/06/21
--- OUTSIDE RECORDS SUMMARY | 2024-11-14 14:32 | XMS_ITS | Encounter Summary ---
Author Organization [facility] Healthcare Address [address] [place] [address] Care Team Providers Care Cnc Mill Programmer Name Role Phone Caleb Elizabeth MD Primary Care Provider [phone] Alma Erickson PATENT LAWYER Unavailable [phone] Encounter Details Date Type Department Care Team (Late st Contact Info) Description 11/06/2024 Results Follow-Up [facility] [place] [facility] [address] [place] [phone] [place] [id number] [place] [address] Social History Tobacco Use Types Packs/Day Years Used Date Smoking Tobacco: Never Smokeless Tobacco: Never Comments Unknown Sex and Gender Information Value Date Recorded Sex Assigned at Not on file Legal Sex Female 8:41 AM DIGESTER Gender Identity Not on file Sexual Orientation Not on file documented as of this encounter Plan of Treatment Not on file documented as of this encounter Visit Diagnoses Not on filedocumented in this encounter Care Teams Cnc Mill Programmer Relationship Specialty Start Date End Date Caleb Elizabeth MD [address] [facility] [address] [place] [address] PCP - General Internal Medicine 04/07/18 Alma Erickson, ERIC [address] [place] [address] Nurse Practitioner Obstetrics and Gynecology 08/17/24 documented as of this encounter
--- OUTSIDE RECORDS SUMMARY | 2024-11-14 14:32 | XMS_ITS | Encounter Summary ---
Author Organization [facility] MARY ELLEN Pérez [facility] Address [address] [place] [address] Care Team Providers Care Tableau Report Developer Name Role Phone Caleb Elizabeth DO Primary Care Provider [phone] Reason for Referral * Radiology Services (Routine) - Closed Specialty Diagnoses / Procedures Referred By Radha t Referred To Contact Diagnoses Visit for screening mammogram Procedures MAMMO 3D WILIAM SCREEN BILAT W OR WO CAD CHG SCREENING MAMMOGRAPHY BI 2-VIEW BREAST INC CAD CHG SCREENING DIGITAL BREAST TOMOSYNTHESIS BI Lee Lovett MD [facility] [employer] [address] [place] [id number] Phone: tel: fax: [place] [phone] Referral ID Status Reason Start Date Expiration Date V isits Requested Visits Authorized [id number] Closed [facility] CTS 11/14/2024 12/15/2025 1 1 Reason for Visit * Reason Comments Cancer Follow Up Encounter Details Date Type Department Care Team (Late st Contact Info) Description 11/14/2024 1:15 PM CDT Office Visit [facility] ([facility]3] Oncology and Hematology [address] [place] [address] Lee Lovett MD [address] [employer] [address] [place] [address] Ductal carcinoma in situ (DCIS) of right breast (Primary Dx); Visit for screening mammogram Social History Tobacco Use Types Packs/Day Years [...] on file documented as of this encounter Last Filed Vital Signs Vital Sign Reading Time Taken Comments Blood Pressure 132/83 11/14/2024 1:28 PM CDT Pulse 85 11/14/2024 1:28 PM CDT Temperature 36 C (96.8 F) 11/14/2024 1:28 PM CDT Respiratory Rate 15 11/14/2024 1:28 PM CDT Oxygen Saturation 97% 11/14/2024 1:28 PM CDT Inhaled Oxygen Concentration - - Weight 85.7 kg (189 lb) 11/14/2024 1:28 PM CDT Height - - Body Mass Index 32.95 06/10/2022 1:14 PM CDT documented in this encounter Progress Notes * Lee Lovett MD - 11/14/2024 1:43 PM CDT HEMATOLOGY / ONCOLOGY PROGRESS NOTE Patient Identification: Name: Christelle Maria Age: 68 y.o. 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 Osteoporosis CURRENT TREATMENT Tamoxifen 20 mg daily started June 10, 2022. TREATMENT HISTORY Radiation therapy to the right breast completed 06/25/2021 Arimidex 1 mg daily started 07/09/2021. Discontinued on June 10, 2022 due to osteoporosis. SUBJECTIVE Patient came into the office for follow-up visit. She has been taking tamoxifen and tolerating it well other than some weight gain. Denies any night sweats and hot flashes. No other new complaints. Review of system Constitutional: denies fevers, sweats, denies any tiredness and fatigue, 9 pound weight gain HEENT: denies sinus congestion, hearing or vision problems Respiratory: denies cough, dyspnea, wheeze Cardiovascular: denies chest pain, exertional chest pressure/discomfort, nausea, syncope, shortnessof breath GI: denies constipation, diarrhea, dsyphagia, reflux symptoms, vomiting, melena : denies dysuria, frequency, incontinence, urgency Integumentary system: no lymphadenopathy, sweats, flushing Musculoskeletal: denies: myalgia, arthralgia Neurological: denies blurry or disturbed vision, numbness/weakness, dizziness Skin: Denies any rash 12 point review of system was reviewed Objective: Vital signs in last 24 hours: As per nursing note Exam: General appearance: alert, cooperative, no distress, appears stated age Head: normocephalic, without obvious abnormality, atraumatic Eyes: conjunctivae/corneas clear, EOM's intact Ears: normal external ear canals AU Nose: Nares normal. Septum midline. Mucosa normal. No drainage or sinus tenderness Throat: Lips, mucosa, and tongue normal. Teeth and gums normal Neck: supple, symmetrical, trachea midline. Lungs: clear to auscultation bilaterally Heart: regular rate and rhythm, S1, S2 normal, no murmur, click, rub or gallop Abdomen: soft, non-tender. Bowel sounds normal. No masses, No organomegaly Extremities: extremities normal, atraumatic, no cyanosis or edema Skin: Skin color, texture, turgor normal. No rashes or lesions Lymph nodes: No lymphadenopathy Neuro: No obvious focal deficit Bilateral breast examination showed postoperative changes and scarring in the right breast without any masses and lymphadenopathy Exam as above PATH LABS Labs from November 07 show WBC 4.4 hemoglobin 13.7 platelet 183,000 creatinine 0.6 Labs from February 07 show WBC 5.3 hemoglobin 14.1 platelet 179,000 Labs from June 10 showed WBC 5.8 hemoglobin 14.2 platelet 187,000 creatinine 0.6 Labs from December 02 showed WBC 7.9 hemoglobin 13.1 platelet 167,000 creatinine 0.7 Labs from April 27 showed WBC 7.1 hemoglobin 13.3 platelet 182,000 creatinine 0.7 Labs from November 14 showed creatinine 0.8 WBC 8.7 hemoglobin 12.8 platelet 183,000 Assessment: Plan: Patient Active Problem List Diagnosis Date Noted Ductal carcinoma in situ (DCIS) of right breast 05/06/2021 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 ER/DC 100% positive. Grade 1 DCIS. Patient has now completed radiation therapy treatment in June 2021. Arimidex started July 09, 2021. Patient was started on tamoxifen due to diagnosis of osteoporosis in January 2022. There is no evidence of relapse of disease on my examination. She is taking tamoxifen and tolerating it well. We will order bilateral screening mammogram in 5 months and follow-up in 6 months. Osteoporosis. Bone density done in April 2024 showed osteopenia. She will continue Fosamax along with vitamin D. Follow-up in 6 months. 11/14/2024 Lee Lovett MD documented in this encounter Plan of Treatment Upcoming Encounters Date Type Department Care Team (Late st Contact Info) Description 05/22/2025 11:45 AM CDT Office Visit [facility] ([facility]3] Oncology and Hematology [facility] [address] [facility] [address] [place] [address] Lee Lovett MD [address] [facility] [address] [place] [address] Scheduled Orders Name Type Priority Associated Diagnoses Orde r Schedule CBC WITH DIFFERENTIAL Lab Stat Ductal carcinoma in situ (DCIS) of right breast Expected: 05/17/2025, Expires: 11/14/2025 COMPREHENSIVE METABOLIC PANEL Lab Stat Ductal carcinoma in situ (DCIS) of right breast Expected: 05/17/2025, Expires: 11/14/2025 MAMMO 3D WILIAM SCREEN BILAT W OR WO CAD Imaging Routine Visit for screening mammogram Expected: 04/16/2025, Expires: 05/17/2026 documented as of this encounter Visit Diagnoses Diagnosis Ductal carcinoma in situ (DCIS) of right breast- Primary Visit for screening mammogram Other screening mammogram documented in this encounter Care Teams Tableau Report Developer Relationship Specialty Start Date End Date Caleb Elizabeth DO [address] [facility] [address] [place] [phone] PCP - General Internal Medicine 05/06/21 documented as of this encounter
--- OUTSIDE RECORDS SUMMARY | 2024-11-14 14:32 | XMS_ITS | Referral Summary ---
Author Organization [facility] Address [address] [place] [address] Care Team Providers Care Municipal Engineer Name Role Phone Caleb Elizabeth MD Primary Care Provider [phone] Alma Erickson FUNDRAISING DIRECTOR Unavailable [phone] Encounters Date Type Department Care Team Description 11/06/2024 Results Follow-Up [facility] Specialists of [address] [address] Joselin Grider MD 10/20/2024 10:30 AM EMISSIONS INSPECTOR Office Visit [facility]ists [address] [address] Joselin Grider MD Age-related osteoporosis without current pathological fracture (Primary Dx); Vitamin D deficiency; Acquired hypothyroidism from Last 3 Months Allergies Active Allergy Reactions Criticality Noted Date [...] day Active pramipexole (MIRAPEX) 0.25 mg tablet Active latanoprost (XALATAN) 0.005 % ophthalmic solution INSTILL ONE DROP INTO BOTH EYES EVERY NIGHT AT BEDTIME 4 Active tamoxifen (NOLVADEX) 20 mg tablet Take 1 tablet (20 mg total) by mouth daily Active levothyroxine (SYNTHROID) 150 mcg tablet Take 1 tablet (150 mcg total) by mouth disability counselor before breakfast Active alendronate (FOSAMAX) 70 mg [...] er) Active Problems No known active problems Social History Tobacco Use Types Packs/Day Years Used Date Smoking Tobacco: Never Smokeless Tobacco: Never Tobacco Cessation:Counseling Given: Not Answered Comments Unknown Sex and Gender Information Value Date Recorded Sex Assigned at Not on file Legal Sex Female 8:41 AM EMISSIONS INSPECTOR Gender Identity Not on file Sexual Orientation Not on file Last Filed Vital Signs Vital Sign Reading Time Taken Comments Blood Pressure 124/60 10/20/2024 10:23 AM EMISSIONS INSPECTOR Pulse 80 10/20/2024 10:23 AM EMISSIONS INSPECTOR Temperature - - Respiratory Rate 16 10/20/2024 10:23 AM EMISSIONS INSPECTOR Oxygen Saturation - - Inhaled Oxygen Concentration - - Weight 84.4 kg (186 lb) 10/20/2024 10:23 AM EMISSIONS INSPECTOR Height 160 cm (5' 3 ) 10/20/2024 10:23 AM EMISSIONS INSPECTOR Body Mass Index 32.95 10/20/2024 10:23 AM EMISSIONS INSPECTOR Plan of Treatment Not on file Procedures Procedure Name Priority Date/Time Associated Diagnosis Comments THYROID FUNCTION CASCADE Routine 10/26/2024 12:01 PM EMISSIONS INSPECTOR Age-related osteoporosis without current pathological fracture Acquired hypothyroidism VITAMIN D 25 HYDROXY Routine 10/26/2024 12:01 PM EMISSIONS INSPECTOR Vitamin D deficiency PTH Routine 10/26/2024 12:01 PM EMISSIONS INSPECTOR Age-related osteoporosis without current pathological fracture COMPREHENSIVE METABOLIC PANEL Routine 10/26/2024 12:01 PM EMISSIONS INSPECTOR Age-related osteoporosis without current pathological fracture from Last 3 Months Results * Thyroid Function [place] (10/26/2024 12:01 PM EMISSIONS INSPECTOR) TSH 2.210 0.450 - 4.500 uIU/mL [facility] - 01 Comment: No apparent thyroid disorder. Additional testing not indicated. In rare instances, Secondary Hypothyroidism as well as Subclinical Hypothyroidism have been reported in some patients with normal TSH values. Blood 10/26/2024 12:0 1 PM EMISSIONS INSPECTOR 10/26/2024 Narrative [facility] - 10/27/2024 8:11 AM EMISSIONS INSPECTOR Performed at: 01 - [facility] [id number] Goods Layer: Aron Busch PhD, Phone: [phone] us Joselin Ulloa MD LAB BLOOD ORDERABLE S Final Result [facility] - * Vitamin D 25 hydroxy (10/26/2024 12:01 PM EMISSIONS INSPECTOR) Vitamin D, 25-Hydroxy 65.4 30.0 - 100.0 ng/mL [facility] - 01 Comment: Vitamin D deficiency has been defined by the Royal of Medicine and an Endocrine Society practice guideline as a level of serum 25-OH vitamin D less than 20 ng/mL (1,2). The Endocrine Society went on to further define vitamin D insufficiency as a level between 21 and 29 ng/mL (2). 1. IOM (Royal of Medicine). 2010. Dietary reference intakes for calcium and D. [place]: The National Academies Press. 2. Deja MF, Chevy LINDSEY, Amalia ROTHMAN, et al. Evaluation, treatment, and prevention of vitamin D deficiency: an Endocrine Society clinical practice guideline. JCEM. 2010; 96(7):1911-30. Blood 10/26/2024 12:0 1 PM EMISSIONS INSPECTOR 10/26/2024 Narrative [facility] - 10/27/2024 7:09 AM EMISSIONS INSPECTOR Performed at: [address] [id number] Goods Layer: Aron Busch PhD, Phone: [phone] us Joselin Ulloa MD LAB BLOOD ORDERABLE S Final Result Performing Organization Address [facility] Phone Number [facility] - * PTH (10/26/2024 12:01 PM EMISSIONS INSPECTOR) [facility] PTH Intact 17 15 - 65 pg/mL [facility] - 01 Blood 10/26/2024 12:0 1 PM EMISSIONS INSPECTOR 10/26/2024 Narrative [facility] - 10/27/2024 10:10 AM EMISSIONS INSPECTOR Performed at: [address] [place] [id number] Goods Layer: Aron Busch PhD, Phone: [phone] Specimen Comment: A courtesy copy of this report has been sent to [phone] us Joselin Ulloa MD LAB BLOOD ORDERABLE S Final Result Performing Organization Address [facility] Co de Phone Number [facility] - * Comprehensive metabolic panel (10/26/2024 12:01 PM EMISSIONS INSPECTOR) Pathologist [facility] Glucose 93 70 - 99 mg/dL [facility] [...] - 01 Blood 10/26/2024 12:0 1 PM EMISSIONS INSPECTOR 10/26/2024 Narrative [facility] - 10/27/2024 8:11 AM EMISSIONS INSPECTOR Performed at: 01 - [facility] [address] [id number] Goods Layer: Aron Busch PhD, Phone: [phone] us Joselin Ulloa MD LAB BLOOD ORDERABLE S Final Result Performing Organization Address City/State/[facility] Co de Phone Number [facility] - 01 from Last 3 Months Insurance MEDICARE [employer] Care Teams Municipal Engineer Relationship Specialty Start Date End Date Caleb Elizabeth MD [address] [facility] [address] [place] [address] PCP - General Internal Medicine 04/07/18 Alma Erickson NP [address] [place] [address] Nurse Practitioner Obstetrics and Gynecology 08/17/24
--- OUTSIDE RECORDS SUMMARY | 2024-11-14 14:32 | XMS_ITS | Data Portability ---
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 Patient will come back in a year unless there are new symptoms. [email or web address] Not available 05/08/2021 13:12:13 08/01/2024 08/01/2024 Annual gynecological exam performed. Patient will come back in a year unless there are new symptoms. [email or web address] Not available 06/15/2024 12:04:20 Plan of Treatment Reminders Order Date Submit Date Provider Last Modified By Organization Details Last Modified Time Details Appointments None recorded. Lab None recorded. Referral None recorded. Procedures None recorded. Surgeries None recorded. Imaging None recorded. Medication Orders nystatin-t riamcinolo ne 100,000 unit/gram- 0.1 % topical ointment 2020 021 oss8 [id number], [address] [place], [address], 12:41:53 Patient TargetsNo targets recorded. Patient InstructionsNo instructions recorded. Reason for Referral None Reported. Results Created Date Observation Date Name Description Value Unit Range Abnormal Flag Note LastModifiedBy Organization Detail LastModifiedTime 01/29/20 22 DEXA No observ ation record ed. [email or web address] [facility] [address], [place], [address], 02/13/2022 17:16:39 02/04/20 22 DEXA No observ ation record ed. [facility] [address], [place], [address], 02/10/2022 18:35:05 08/08/20 24 05/01/2024 DEXA, axial skele ton + verte bral fract ure asses sment No observ ation record ed. [email or web address], [place], [address], 08/17/2024 16:28:01 Result Notes None recorded. Problems Name Problem SNOMED Code Status Onset Date Resolution Date Notes Provider Name and Address Organization Details Recorded Time Speciali d medical examinat ion Completed 201305/08/2021 Gynecolog ical Examinati on;Record ed Elsewhere : No Locati on: [facility] So urce: EHR Chron ic: N Practic e ID: 0001 Bill able Time: 11:30:00 AM Naila Ratliff [facility] 11:16:[address] Concept Completed 201605/08/2021 Encntr for general adult medical exam w/o abnormal findings; Recorded Elsewhere : No Locati on: [facility] So urce: EHR Chron ic: N Practic e ID: 0001 Bill able Time: 11:15:00 AM Naila Ratliff [facility] 1 11:16:48 Radiolog ic finding [id number] Completed 201705/08/2021 Oth abn and inconclus surya findings on dx imaging of breast;Re corded Elsewhere : No Locati on: [facility] So urce: EHR Chron ic: N Practic e ID: 0001 Bill able Time: 03:35:28 PM Naila Ratliff [facility] 1 11:16:36 Adult health examinat ion Completed 11/09/ 2011 05/08/2021 Routine Medical Exam;Willie rded Elsewhere : No Locati on: [facility] So urce: EHR Chron ic: N Practic e ID: 0001 Bill able Time: 09:00:00 AM Naila Ratliff [facility] 1 11:16:33 Disorder of hair AND/OR hair follicle Completed 201205/08/2021 Other specified diseases of hair and hair follicles ;Recorded Elsewhere : No Locati on: [facility] So urce: EHR Chron ic: N Practic e ID: 0001 Bill able Time: 01:45:00 PM Naila [facility] 11:16:40 Microsco pic hematuri a [id number] Completed 201305/08/2021 MICROSCOP IC HEMATURIA ;Recorded Elsewhere : No Locati on: [facility] So urce: EHR Chron ic: N Practic e ID: 0001 Bill able Time: 11:30:00 AM Naila Ratliff [facility] 11:16:43 Contact dermatit is [id number] Completed 201205/08/2021 Contact dermatiti s and other eczema, unspecifi ed cause;Rec orded Elsewhere : No Locati on: [facility] So urce: EHR Chron ic: N Practic e ID: 0001 Bill able Time: 01:45:00 PM Naila Ratliff [facility] 11:16:38 Screenin g for malignan t neoplasm of cervix Completed 201005/08/2021 Screening for malignant neoplasms of the cervix;Re corded Elsewhere : No Locati on: [facility] So urce: EHR Chron ic: N Practic e ID: 0001 Bill able Time: 09:00:00 AM Naila Ratliff [facility] 1 11:16:44 Body mass index 30+ - obesity [id number] Completed 201805/08/2021 Body mass index (BMI) 31.0-31.9 , adult;Rec orded Elsewhere : No Locati on: [facility] So urce: EHR Chron ic: N Practic e ID: 0001 Bill able Time: 10:00:00 AM Naila Ratliff [facility] 11:16:35 Screenin g for malignan t neoplasm of rectum Completed 201805/08/2021 Encounter for screening for malignant neoplasm of rectum;Re corded Elsewhere : No Locati on: [facility] So urce: EHR Chron ic: N Practic e ID: 0001 Bill able Time: 10:00:00 AM Naila Ratliff [facility] 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 11:16:49 Vaginiti s and vulvovag initis Completed 201205/08/2021 Vaginitis ;Recorded Elsewhere : No Locati on: [facility] So urce: EHR Chron ic: N Practic e ID: 0001 Bill able Time: 10:45:00 AM Naila Ratliff [facility] 11:16:52 Increase d frequenc y of urinatio n [id number] Completed 201605/08/2021 Frequency of micturiti on;Practi ce ID: 0001 Naila Ratliff [facility] 11:16:41 Problem Notes None recorded. Procedures Surgical History Date Name Laterality Status Provider Name and Address Organization Details Recorded Time 05/01/20 24 Most Recent Bone Density completed Elina Mahajan [facility] 08/08/2024 16:22:42 04/06/20 24 Date of Last Mammogram completed [facility] 08/01/2024 16:23:30 09/06/19 21 biopsy of breast completed [facility] 05/08/2021 13:23:14 09/15/19 19 Date of Last Pap Smear completed [facility] 05/08/2021 11:17:30 09/06/19 11 Total Hysterectomy completed [facility] 08/01/2024 16:25:32 09/06/19 04 procedure on shoulder completed [facility] 05/08/2021 13:22:57 09/06/18 64 Appendectomy completed [facility] 08/01/2024 16:25:52 Imaging Results Imaging Date Name Status LastModified by Organiz ation Details LastModified Time 01/28/2022 DEXA completed [address] [facility] [address] [facility] [address], [place], [address], 02/13/2022 17:16:39 02/03/2022 DEXA completed [address] [facility] [address], [place], [address], 02/10/2022 18:35:05 05/01/2024 DEXA, axial skeleton + vertebral fracture assessment completed [address], [place], [address], 08/17/2024 16:28:01 Procedure Notes None recorded. Medical Equipment None Reported. Allergies Allergen ID Allergen Name Allergen Category Reaction Reaction Severity Criticality Documentation Date Start Date Code Code System Note Provider Name and Address Organization Details Recorded Time 91973 codeine medicatio n Not available Not available Not available 08/23/2020 2670 RxNorm Comme nt: [facility]at [facility]; Not Available [facility] 0 14:17:44 53442 Product containin g penicilli n (product) medicatio n hives Not available Not available 08/23/2020 13597 8001 SNOMED React ion: hives ; Comme nt: [facility]at [facility]; Not Available [facility] 0 14:17:44 71794 Substance with sulfonami de structure and antibacte rial mechanism of action (substanc e) medicatio n Not available Not available Not available 08/23/2020 51338 8003 SNOMED React ion: Troub le Breat mya; Comme nt: [facility]at [facility]; Not Available [facility] 0 14:17:45 13512 erythromy harper medicatio n other moderate Not available 02/11/2022 4053 RxNorm Naila [facility] 2 12:41:19 Medications Name Sig Start Date Stop Date Status Note LastModified by Organization Details LastModified Time latanopro st 0.005 % eye drops INSTILL ONE DROP IN BOTH EYES EVERY NIGHT AT BEDTIME. 08/01 completed Not Available Not Available Not Available anastrozo le 1 mg tablet TAKE 1 TABLET BY MOUTH EVERY DAY 08/01 completed Not Available Not Available Not Available clindamyc in HCl 300 mg capsule 02/11 completed Not Available Not Available Not Available ketoconaz ole 200 mg tablet TAKE 1 TABLET (200 MG) BY MOUTH DAILY FOR 7 DAYS. 02/11 completed Not Available Not Available Not Available Lotrisone 1 %-0.05 % topical cream apply by topical route 2 times every day for 2 weeks to the affected and surround ing areas of skin in the morning and evening 12/19 completed Prescrib ed Elsewher e: No Locat ion: [facility] odify By: kieran tz Encou nter DateTime : 12/07/19 13 01:45:00 PM Not Available Not Available Not Available hydrocodo ne 5 mg-acetam inophen 325 mg tablet 1 - 2 TABLET ORALLY EVERY 4 HOURS NEEDED FOR PAIN, MAX DAILY DOSE: 8 TABLETS 08/01 completed Not Available Not Available Not Available fluconazo le 200 mg tablet TAKE 1 TABLET (200 MG) BY MOUTH DAILY FOR 7 DAYS. 02/11 completed Not Available Not Available Not Available Effexor XR 37.5 mg capsule,e xtended release take 1 capsule by oral route every day with food 07/15 completed Prescrib ed Elsewher e: Yes Loca tion: [facility] odify By: nicki boyer DateTime : 07/12/20 11 07:50:58 PM Not Available Not Available Not Available alendrona te 70 mg tablet TAKE 1 TABLET BY MOUTH ONE TIME PER WEEK active Not Available Not Available No t Available clobetaso l 0.05 % topical cream apply by topical route 2 times every day a thin layer to the affected area(s) 09/15 completed Prescrib ed Elsewher e: No Locat ion: [facility] odify By: kieran Estevezou nter DateTime : 09/15/19 19 10:00:00 AM Not Available Not Available Not Available Zithromax Z-Christopher 250 mg tablet take 2 tablet (500MG) by oral route every day for 1 day then 1 tablet (250 mg) by oral route once daily for 4 days 11/15 completed Prescrib ed Elsewher e: No Locat ion: [facility] : 11/12/19 13 09:20:11 AM Not Available Not Available Not Available tramadol 50 mg tablet 08/01 completed Not Available Not Available Not Available nystatin- triamcino lone 100,000 unit/gram -0.1 % topical ointment APPLY TO AFFECTED AREA TWICE A DAY FOR 7 DAYS, THEN USE SPARINGL Y NEEDED 02/11 completed Not Available Not Available Not Available Levoxyl 25 mcg tablet take 1 tablet by oral route every day 05/08 completed Prescrib ed Elsewher e: Yes [facility] By: nicki boyer DateTime : 07/15/20 11 09:00:00 AM Not Available Not Available Not Available potassium 99 mg tablet 05/08 completed Prescrib ed Elsewher e: Yes Loca tion: Evelin modi [facility] odify By: cesar duenas DateTime : 11/30/19 14 11:30:00 AM Not Available Not Available Not Available mebendazo le 100 mg chewable tablet chew 1 tablet (100MG) by oral route 2 times every day for 3 days in the morning and evening 10/01 completed Prescrib ed Elsewher e: No Locat ion: Evelin modi [facility] odify By: kieran Toure nter DateTime : 09/29/19 13 10:45:00 AM Not Available Not Available Not Available Vitamin C oral powder active Prescrib ed Elsewher e: Yes Loca tion: Evelin modi [facility] odify By: tina boyer DateTime : 10/23/19 17 09:30:00 AM Not Available Not Available Not Available Wellbutri n 75 mg tablet take 1 tablet by oral route 3 times every day 07/15 completed Prescrib ed Elsewher e: Yes Loca tion: Evelin modi [facility] odify By: nicki boyer DateTime : 07/12/20 11 07:50:58 PM Not Available Not Available Not Available levothyro xine 150 mcg tablet TAKE 1 TABLET BY MOUTH EVERY DAY active Not Available Not Available No t Available levothyro xine 200 mcg tablet TAKE 1 TABLET BY MOUTH EVERY DAY 08/01 completed Not Available Not Available Not Available timolol maleate 0.5 % eye drops INSTILL ONE DROP INTO BOTH EYES TWICE DAILY active Not Available Not Available No t Available magnesium 30 mg tablet active Prescrib ed Elsewher e: Yes Loca tion: Evelin modi [facility] odify By: tina Modi ncounter DateTime : 10/23/19 17 09:30:00 AM Not Available Not Available Not Available tamoxifen 20 mg tablet TAKE 1 TABLET BY MOUTH EVERY DAY active Not Available Not Available No t Available Bactrim DS 800 mg-160 mg tablet take 1 tablet by oral route every 12 hours 11/03 completed Prescrib ed Elsewher e: No Locat ion: Evelin modi [facility] odify By: cesar duenas DateTime : 10/05/19 13 09:37:33 AM Not Available Not Available Not Available Vitamins and Minerals tablet 02/11 completed Prescrib ed Elsewher e: Yes Loca tion: Evelin modi [facility] odify By: nicki boyer DateTime : 07/15/20 11 09:00:00 AM Not Available Not Available Not Available Calcium-5 00 500 mg (as calcium carbonate 1,250 mg) tablet active Prescrib ed Elsewher e: Yes Loca tion: Yoselin ly [facility] odify By: tina boyer DateTime : 10/23/19 17 09:30:00 AM Not Available Not Available Not Available iron active Not Available Not Availa ble Not Available Vitamin D3 10 mcg (400 unit) capsule active Prescrib ed Elsewher e: Yes Loca tion: [facility] odify By: cesar duenas DateTime : 11/30/19 14 11:30:00 AM Not Available Not Available Not Available biotin 5 mg tablet active Prescrib ed Elsewher e: Yes Loca tion: Yoselin ly [facility] odify By: tina boyer DateTime : 10/23/19 17 09:30:00 AM Not Available Not Available Not Available Chlorella powder 05/08 completed Prescrib ed Elsewher e: Yes [facility] By: tina boyer DateTime : 10/23/19 17 09:30:00 AM Not Available Not Available Not Available Vitals Date Recorded Body height Body mass index (BMI) Body weight Systolic blood pressure Diastolic blood pressure Provider Name and Address Organization Details Last Updated DateTime 05/08/2021 160.02 cm 31.9 kg/m2 24191.63 g 108 mm[Hg] 69 mm[Hg] Naila Ratliff [facility] 13:13:20 Date Recorded Body height Body mass index (BMI) Body weight Provider Name and Address Organization Details Last Updated DateTime 02/11/2022 160.02 cm 31.9 kg/m2 58002.63 g Naila Ratliff [facility] 02/11/2022 12:41:08 Date Recorded Systolic blood pressure Diastolic blood pressure Provider Name and Address Organization Details Last Updated DateTime 02/11/2022 122 mm[Hg] 82 mm[Hg] Salena Bryant, [facility] [address], [place], [address], [facility] 02/11/2022 13:00:23 Date Recorded Body height Body mass index (BMI) Body weight Systolic blood pressure Diastolic blood pressure Systolic blood pressure Diastolic blood pressure Provider Name and Address Organization Details Last Updated DateTime 4 160.02 cm 32.9 kg/m2 87420.1 8 g 175 mm[Hg] 84 mm[Hg] 134 mm[Hg] 82 mm[Hg] Xochitl Jean [facility] 16:45:16 Social History Question Answer Notes LastModified by Organizat ion Details LastModified Time Tobacco Smoking Status Never Smoker Freida matos, [facility] 02/11/2022 12:30:05 What Is Your Level Of Alcohol Consumption? Occasional Information not available 05/08/2021 Are You Blind Or Do You Have Difficulty Seeing? No Information not available 05/08/2021 What Is Your Level Of Caffeine Consumption? Occasional Information not available 05/08/2021 How Much Tobacco Do You Chew? None Information not available 08/01/2024 In The 14 Days Before Symptom Onset, Have You Had Close Contact With A Laboratory-confir med COVID-19 While That Case Was Ill? Yes Information not available 08/01/2024 Have You Been To An Area Known To Be High Risk For COVID-19? No Information not available 08/01/2024 Are You Deaf Or Do You Have Serious Difficulty Hearing? No Information not available 05/08/2021 What Type Of Diet Are You Following? SPECIFIC Information not available 08/01/2024 What Is The Highest Grade Or Level Of School You Have Completed Or The Highest Degree You Have Received? [id number] Information not available 08/01/2024 What Is Your Occupation? Retired Information not available 08/01/2024 Are There Any Guns Present In Your Home? No Information not available 08/01/2024 Do You Use Your Seat Belt Or Car Seat Routinely? Yes Information not available 05/08/2021 Do You Have Smoke And Carbon Monoxide Detectors In Your Home? Yes Information not available 05/08/2021 How Much Tobacco Do You Smoke? No Information not available 08/01/2024 Do You Feel Stressed (tense, Restless, Nervous, Or Anxious, Or Unable To Sleep At Night)? [id number] Information not available 05/08/2021 Do You Use Any Illicit Or Recreational Drugs? No Information not available 05/08/2021 Do You Use Sunscreen Routinely? Yes Information not available 05/08/2021 Have You Used IV Drugs? No Information not available 08/01/2024 Sex: Unknown Functional Status Question Answer Note LastModified by Organization D etails LastModified Time Are you able to walk? YESWOREST Information not available 05/08/2021 What is your exercise level? Moderate Information not available 08/01/2024 Mental Status None recorded. Family History Relationship Description Onset Age of this Age Resolved Age Notes LastModified by Organization Details LastModified Time Mother Disorder of thyroid gland Not available 2021 12:41:22 Maternal Grandmother Disorder of thyroid gland Not available 2021 12:41:22 Maternal Grandmother Diabetes mellitus Not available 2021 12:41:22 Maternal Grandmother Phlebitis Not available 15:57:26 Maternal Grandmother Malignant tumor of breast [email or web address] Not available 2023 15:57:26 Father Congenital heart disease [email or web address] Not available 2023 15:57:26 Father Inflammatory disease of liver [email or web address] Not available 2023 15:57:26 Father Diabetes mellitus [email or web address] Not available 2023 15:57:26 Brother Diabetes mellitus Not available 2021 12:41:22 Maternal Uncle Malignant tumor of lung Not available 2021 12:41:22 Paternal Aunt Malignant tumor of breast Not available 2021 12:41:22 Maternal Aunt Seizure disorder [email or web address] Not available 2023 15:57:26 Maternal Aunt Disorder of thyroid gland [email or web address] Not available 2023 15:57:26 Maternal Aunt Malignant tumor of breast [email or web address] Not available 2023 15:57:26 Medical History Condition Response Breast Problem Y Thyroid Problems Y Breast Cancer Y Gynecological History Statement/Question Response Abnormal Pap N Date of Last Mammogram 04/06/2024 STIs/STDs N HPV Vaccine N Colposcopy 14 Current Control Method Hysterectom y If Post Menopausal, Age at Menopause 40 Most Recent Bone Density 05/01/2024 Sexually Active? N Menses Monthly N Date of DEXA bone scan 05/01/2024 Age of first menstrual cycle 13 Date of Last Pap Smear 09/15/2018 Sexual Problems? N LMP Unknown N Obstetrics History GPAL:G 0 P 0 0 0 0 Past Encounters Encounter ID Performer Location Encounter Start Date Encounter Closed Date Diagnosis/Indication Diagnosis SNOMED-CT Code Diagnosis ICD10 Code Diagnosis Note [id number] Salena Bryant , [facility] [address] [address] 05/08/2021 12:56:57 05/08/2021 13:43:12 Gynecologic examination 31658599 Z01.419 Take Calcium with Vitamin D 12-1500mg daily. Do monthly self breast exams. It is advised to get annual flu shot in the fall and she could obtain at [facility] or [facility] care clinic. If you haven't received the Tdap vaccine in the last 10 years you should obtain one as well. Have mammogram yearly, bone density every 2-3 years and colonoscop y every 5-10 years depending on findings and history. Engage in daily exercise of low impact aerobic exercise 45-60 minutes 4-5 times weekly. Avoid tobacco and illicit drugs as well as using moderation with alcohol intake less than 1-2 8 oz beverages daily. This lifestyle behavior pattern will lead to less health conditions and longer life span. If BMI greater than 25 weight watchers or dietary consult advised. Questions have been answered. Patient appears to understand instructio ns, but if you have any further questions call or respond to this email Pap/hpv hx is wnl.Hx of hysterecto my for non-cancer indication sUSPSTF recommends against screening for cervical cancer in women older than 65yo who have had adequate prior screening & are not otherwise at high risk for cervical cancer. Decline std screen Mammo & breast health managed by Breast Onc.Found some precancer cells this year & is having treatment for them. Dexa orderedCol on q5yrs (mamaged by PCP) Skin irritation [id number] 7 L30.9 If does not help please refer to derm. [id number] [facility] , [facility] [address] [address] 02/11/2022 12:28:32 02/11/2022 15:13:40 Postmenopausal osteoporosis 218718824 M81.0 Today we reviewed Dexa results.Co unseled on Risks/Bene fits of treatment pharma therapy vs no Rx txment and only lifestyle changes.Re ferred to [facility] [facility] website.We discussed her current medication s/therapie s/health status in relation to Dexa results and moving forward.Wa nts to consider these options & will send a msg to let us know what she would like to do.May consider the once a month Rx therapy if insurance will cover it. Will have dexa report sent to her PCP/ONC Breast specialist . Time spent in visit is a total of 15 mins with at least 50% of visit consisting of counseling and review of plan of care. [id number] Alma Priest [facility] [address] [address] 08/01/2024 15:55:14 08/02/2024 12:20:44 Gynecologic examination 70943768 Z01.419 WWEPap - not indicatedS TI screen - declinedMa mmogram - UTD/follow s with oncologyCo jazmine cancer screening - UTDDexa - UTD, will request records of dexa done in 2022. On alendronat e since 2021, will review dexa scan from 2022 and discuss recommenda tions with pt.Routine labs - UTD/PCPRTC in 1 yr or sooner if needed Do monthly self breast exams.It is advised to get annual flu shot in the fall and she could obtain at local pharmacy. If you haven't received the Tdap vaccine in the last 10 years you should obtain one as well.Have mammogram yearly, bone density every 2-3 years and stay up to date on colon cancer screening. Engage in regular exercise. Avoid tobacco and illicit drugs. This lifestyle behavior pattern will lead to less health conditions and longer life span. If BMI greater than 25 dietary consult advised.Qu estions have been answered. Osteoporosis 24407041 M8 1.0 Health Concerns Section Related Observation LastModified by Organization Detai ls LastModified Time None Recorded Concern Status LastModified by Organization Details LastModified Time None Recorded Advance Directives Directive None Recorded Payers Encounter Date Sequence Insurance Name Policy Number Policy Shepard Covered Member ID Shepard Member ID Guarantor Name 05/08/2021 1 [place] Christelle R Maria [id number] Christelle R Maria 05/08/2021 2 [employer] - PLAN F (MEDICARE SUPPLEMENT) Christelle R Maria [id number] Christelle R Maria 02/11/2022 1 [place] Christelle R Maria [id number] Christelle R Maria 02/11/2022 2 [employer] INS[employer]ANCE COMPANY - PLAN F (MEDICARE SUPPLEMENT) Christelle R Maria [id number] Christelle R Maria 08/01/2024 1 [place] Christelle R Maria [id number] Christelle R Maria 08/01/2024 2 [employer] - PLAN F (MEDICARE SUPPLEMENT) Christelle R Maria [id number] Christelle Maria Notes Date Note Type Note Provider Name and Address Organization Details Recorded Time 05/08/2021 text/html Annual [employer] Lead Post-MenopausalRepor jojo bypatient.Menopausal Symptoms:no menopausal symptoms; normal vaginal lubrication Vaginal Bleeding:history of menopause having occurred; no history of post menopausal bleeding Urinary Symptoms:no hematuria; no incontinence; no nocturia; no urinary frequency Vulva:no genital lesion; no vulvar atrophy Vagina:normal vaginal discharge; no vaginal atrophy Breast:no breast lump; no nipple discharge; no breast pain Sexual Complaints:no sexual complaints Psychological Symptoms:no depression; no anxiety Preventive Measures:encourage regular mammograms starting age 40; encourage self breast examination; encourage regular exercise; encourage no tobacco use; mammogram performed within the past year; history of recent colonoscopy; needs to schedule bone density Salena Bryant [facility]- [address], [place], [address], [facility] 05/08/2021 13:35:16 02/11/2022 text/html Here today for b one health discussion and Dexa review. [facility] [address], [place], [address], [facility] 02/11/2022 14:37:29 08/01/2024 text/html Annual [employer] Lead Post-MenopausalRepor jojo bypatient.Menopausal Symptoms:no menopausal symptoms; normal vaginal lubrication Vaginal Bleeding:history of menopause having occurred; no history of post menopausal bleeding Urinary Symptoms:no hematuria; no incontinence; no nocturia; no urinary frequency Vulva:no genital lesion; no vulvar atrophy Vagina:normal vaginal discharge; no vaginal atrophy Breast:no breast lump; no nipple discharge; no breast pain Sexual Complaints:no sexual complaints Psychological Symptoms:no depression; no anxiety Preventive Measures:encourage regular mammograms starting age 40; encourage self breast examination; encourage regular exercise; encourage no tobacco use; mammogram performed within the past year; history of recent colonoscopyNotes:68y o wweh/o hystlast pap 2019 - normalh/o right breast cancer 2020, lumpectomy and radiation, on tamoxifen, mammogram UTDcolonoscopy UTDdexa last 2022 per pt, on alendronate weekly since 2routine labs UTD/PCP ALVAREZ Estrada [address], [place], [address], [facility] 08/02/2024 09:34:56 OBGyn Episode No OBEpisode recorded.
[2024-11-14 14:37] LABS: Alanine Aminotransferase 26 U/L (6-35); Albumin Level 3.9 g/dL (3.5-5.1); Alkaline Phosphatase 55 U/L (38-126); Anion Gap 11 mmol/L (4-12); Aspartate Amino Transferase 25 U/L (14-36); Bilirubin,Total 0.3 mg/dL (0.2-1.3); Blood Urea Nitrogen 13 mg/dL (7-17); Calcium 8.8 mg/dL (8.4-10.2); Carbon Dioxide 25 mmol/L (22-30); Chloride 104 mmol/L (98-107); Estimated Glomerular Filt Rate > 60; Glucose 108 mg/dL (65-110); Potassium 4.1 mmol/L (3.4-5.0); Sodium 140 mmol/L (137-145)
== END 2024-11-14 13:09 | disposition home or self-care (01) ==
LOC: ANHLAB 13:09
PROVIDERS: PCP Internal Medicine; Visit Provider Internal Medicine Hematology & Oncology
DX: D05.11 Intraductal carcinoma in situ of right breast (principal)
CPT/HCPCS: 36415; 80047; 80053; 85025

== ENCOUNTER 2025-01-17 14:33 | Outpatient (CLI) | payer MEDICARE, SELFPAY ==
--- NOTE | ~2025-01-17 | CT_ITS ---
EXAMINATION: CT LE RT wo con DATE: 01/17/2025 15:13 INDICATION: Right knee osteoarthritis for preoperative planning. TECHNIQUE: High resolution computed tomography (CT) of the right lower extremity from the hip through the ankle was performed without intravenous contrast. Additional sagittal and coronal reconstruction s were performed. The dose-length product was 1783.56 mGy-cm. COMPARISON: Right knee radiographs dated 03/06/2024 FINDINGS: Bone alignment is normal. No fracture or suspected osteonecrosis. Polyarticular osteoarthritis, inclu ding tricompartmental osteoarthritis at the right knee with moderate joint space narrowing in the med ial compartment which may be underestimated on nonweightbearing imaging with underlying subarticular sclerosis and cystic change. The joint space narrowing in the medial compartment appears severe on th e prior weightbearing radiographs. There is a small right knee joint effusion as well as a small Bake r's cyst. Additional moderate osteoarthritis with subarticular cystic change at the first metatarsoph alangeal joint. Mild osteoarthritis at the right hip. There are few small sclerotic bone islands at t he proximal right femur and visualized pelvis and sacrum. 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 There are 3 masses in the right hemipelvis, 2 of which are incompletely visualized, more anterolatera l with some peripheral calcification measuring at least 7.7 and the second or posterior medial measur ing at least 8.2 cm in maximal diameter. The third measures 6.8 x 6.6 cm and contains both soft tissu e and macroscopic fat density suggestive of an ovarian dermoid. Mild diverticulosis along the sigmoid colon. No pathologically enlarged right pelvic or inguinal lymphadenopathy. IMPRESSION: 1. 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 Recommend further evaluatio n with contrast enhanced CT of the pelvis and would also consider including the abdomen. 2. Tricompartmental osteoarthritis at the right knee, severe in the medial compartment. Reviewed, dictated and finalized at location A. IMPRESSION: 1. 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 Recommend further evaluation with contrast enhanced CT of the pelvis and would also consider including the abdomen. 2. Tricompartmental osteoarthritis at the right knee, severe in the medial comp artment.
--- OUTSIDE RECORDS SUMMARY | 2025-01-17 14:43 | XMS_ITS | Data Portability ---
Author Organization [facility] Address [address] [place] [address] Care Team Providers Care Soldering Inspector Name Role Phone LEXIS OHARA Primary Care Provider JEINSE SIMMONS Primary Care Provider [phone] Assessment Encounter Date Assessment Date Assessment LastModified by Organization Details LastModified Time 05/08/2021 05/08/2021 Annual gynecological exam performed. Patient will come back in a year unless there are new symptoms. [email or web address] Not available 05/08/2021 13:12:13 08/01/2024 08/01/2024 Annual gynecological exam performed. Patient will come back in a year unless there are new symptoms. [email or web address] Not available 06/15/2024 12:04:20 Plan of Treatment Reminders Order Date Submit Date Provider Last Modified By Organization Details Last Modified Time Details Appointments None recorded. Lab None recorded. Referral None recorded. Procedures None recorded. Surgeries None recorded. Imaging None recorded. Medication Orders nystatin-t riamcinolo ne 100,000 unit/gram- 0.1 % topical ointment 2020 021 oss8 [id number], [address] [place], [address], 12:41:53 Patient TargetsNo targets recorded. Patient InstructionsNo instructions recorded. Reason for Referral None Reported. Results Created Date Observation Date Name Description Value Unit Range Abnormal Flag Note LastModifiedBy Organization Detail LastModifiedTime 01/29/20 22 DEXA No observ ation record ed. [email or web address] [facility] [address], [place], [address], 02/13/2022 17:16:39 02/04/20 22 DEXA No observ ation record ed. [facility] [address], [place], [address], 02/10/2022 18:35:05 08/08/20 24 05/01/2024 DEXA, axial skele ton + verte bral fract ure asses sment No observ ation record ed. [email or web address], [place], [address], 08/17/2024 16:28:01 Result Notes None recorded. Problems Name Problem SNOMED Code Status Onset Date Resolution Date Notes Provider Name and Address Organization Details Recorded Time Speciali zed medical examinat ion Completed 201305/08/2021 Gynecolog ical Examinati on;Record ed Elsewhere : No Locati on: [facility] So urce: EHR Chron ic: N Practic e ID: 0001 Bill able Time: 11:30:00 AM Naila Ratliff [facility] 11:16:[address] Concept Completed 201605/08/2021 Encntr for general adult medical exam w/o abnormal findings; Recorded Elsewhere : No Locati on: [facility] So urce: EHR Chron ic: N Practic e ID: 0001 Bill able Time: 11:15:00 AM Naila Gaudencio [facility] 11:16:48 Evaluati on finding [id number] Completed 201705/08/2021 Oth abn and inconclus surya findings on dx imaging of breast;Re corded Elsewhere : No Locati on: [facility] So urce: EHR Chron ic: N Practic e ID: 0001 Bill able Time: 03:35:28 PM Naila Ratliff [facility] 11:16:36 Adult health examinat ion Completed 201005/08/2021 Routine Medical Exam;Willie rded Elsewhere : No Locati on: [facility] So urce: EHR Chron ic: N Practic e ID: 0001 Bill able Time: 09:00:00 AM Naila Ratliff [facility] 11:16:33 Disorder of hair AND/OR hair follicle Completed 201205/08/2021 Other specified diseases of hair and hair follicles ;Recorded Elsewhere : No Locati on: [facility] So urce: EHR Chron ic: N Practic e ID: 0001 Bill able Time: 01:45:00 PM Naila Ratliff [facility] 11:16:40 Microsco pic hematuri a [id number] Completed 201305/08/2021 MICROSCOP IC HEMATURIA ;Recorded Elsewhere : No Locati on: [facility] So urce: EHR Chron ic: N Practic e ID: 0001 Bill able Time: 11:30:00 AM Naila Ratliff [facility] 11:16:43 Contact dermatit is [id number] Completed 201205/08/2021 Contact dermatiti s and other eczema, unspecifi ed cause;Rec orded Elsewhere : No Locati on: [facility] So urce: EHR Chron ic: N Practic e ID: 0001 Bill able Time: 01:45:00 PM Naila Ratliff [facility] 11:16:38 Screenin g for malignan t neoplasm of cervix Completed 201005/08/2021 Screening for malignant neoplasms of the cervix;Re corded Elsewhere : No Locati on: [facility] So urce: EHR Chron ic: N Practic e ID: 0001 Bill able Time: 09:00:00 AM Naila Ratliff [facility] 11:16:44 Body mass index 30+ - obesity [id number] Completed 01/10/ 2019 05/08/2021 Body mass index (BMI) 31.0-31.9 , adult;Rec orded Elsewhere : No Locati on: [facility] So urce: EHR Chron ic: N Practic e ID: 0001 Bill able Time: 10:00:00 AM Naila Ratliff [facility] 11:16:35 Screenin g for malignan t neoplasm of rectum Completed 201805/08/2021 Encounter for screening for malignant neoplasm of rectum;Re corded Elsewhere : No Locati on: [facility] So urce: EHR Chron ic: N Practic e ID: 0001 Bill able Time: 10:00:00 AM Naila Ratliff [facility] 11:16:[address] Concept Completed 201605/08/2021 Encntr for ob/gyn exam (general) (routine) w/o abn findings; Recorded Elsewhere : No Locati on: [facility] So urce: EHR Chron ic: N Practic e ID: 0001 Bill able Time: 09:30:00 AM Naila Ratliff [facility] 11:16:49 Vaginiti s and vulvovag initis Completed 201205/08/2021 Vaginitis ;Recorded Elsewhere : No Locati on: [facility] So urce: EHR Chron ic: N Practic e ID: 0001 Bill able Time: 10:45:00 AM Naila Ratliff [facility] 11:16:52 Increase d frequenc y of urinatio n [id number] Completed 201605/08/2021 Frequency of micturiti on;Practi ce ID: 0001 Naila Ratliff [facility] 11:16:41 Problem Notes None recorded. Procedures Surgical History Date Name Laterality Status Provider Name and Address Organization Details Recorded Time 05/01/20 24 Most Recent Bone Density completed Elina Mahajan [facility] 08/08/2024 16:22:42 04/06/20 24 Date of Last Mammogram completed [facility] 08/01/2024 16:23:30 09/06/19 21 biopsy of breast completed [facility] 05/08/2021 13:23:14 09/15/19 19 Date of Last Pap Smear completed [facility] 05/08/2021 11:17:30 09/06/19 11 Total Hysterectomy completed [facility] 08/01/2024 16:25:32 09/06/19 04 procedure on shoulder completed [facility] 05/08/2021 13:22:57 09/06/18 64 Appendectomy completed [facility] 08/01/2024 16:25:52 Imaging Results Imaging Date Name Status LastModified by Organiz ation Details LastModified Time 01/28/2022 DEXA completed [address] [facility] [address], [place], [address], 02/13/2022 17:16:39 02/03/2022 DEXA completed [address] [facility] [address], [place], [address], 02/10/2022 18:35:05 05/01/2024 DEXA, axial skeleton + vertebral fracture assessment completed [address], [place], [address], 08/17/2024 16:28:01 Procedure Notes None recorded. Medical Equipment None Reported. Allergies Allergen ID Allergen Name Allergen Category Reaction Reaction Severity Criticality Documentation Date Start Date Code Code System Note Provider Name and Address Organization Details Recorded Time 31819 codeine medicatio n Not available Not available Not available 08/23/2020 9140 RxNorm Comme nt: [facility]at [facility]; Not Available [facility] 14:17:44 26931 Product containin g penicilli n (product) medicatio n hives Not available Not available 08/23/2020 73720 8001 SNOMED React ion: hives ; Comme nt: [facility]at [facility]; Not Available [facility] 0 14:17:44 55496 Substance with sulfonami de structure and antibacte rial mechanism of action (substanc e) medicatio n Not available Not available Not available 08/23/2020 55597 8003 SNOMED React ion: Troub le Breat mya; Comme nt: [facility]at [facility]; Not Available [facility] 0 14:17:45 21055 erythromy harper medicatio n other moderate Not available 02/11/2022 4053 RxNorm Naila [facility] 2 12:41:19 Medications Name Sig Start [...] Prescrib ed Elsewher e: No Locat ion: [facility] M odify By: kieran tz Encou nter [...] ed Elsewher e: Yes Loca tion: [facility] odify By: nicki boyer DateTime : [...] Prescrib ed Elsewher e: No Locat ion: [facility] odify By: kieran Toure nter DateTime : 09/15/19 19 10:00:00 AM Not Available Not Available Not Available Zithromax Z-Christopher 250 mg tablet take 2 tablet (500MG) by oral route every day for 1 day then 1 tablet (250 mg) by oral route once daily for 4 days 11/15 completed Prescrib ed Elsewher e: No Locat ion: [facility] DateTime : 11/12/19 13 09:20:11 AM [...] ed Elsewher e: Yes Loca tion: [facility] odify By: nicki boyer DateTime : 07/15/20 11 09:00:00 AM Not Available Not Available Not Available potassium 99 mg tablet 05/08 completed Prescrib ed Elsewher e: Yes Loca tion: [facility]in modi [facility] odify By: cesar duenas DateTime : 11/30/19 14 11:30:00 AM Not Available Not Available Not Available mebendazo le 100 mg chewable tablet chew 1 tablet (100MG) by oral route 2 times every day for 3 days in the morning and evening 10/01 completed Prescrib ed Elsewher e: No Locat ion: [facility] odify By: kieran Toure nter DateTime : 09/29/19 13 10:45:00 AM Not Available Not Available Not Available Vitamin C oral powder active Prescrib ed Elsewher e: Yes Loca tion: [facility] odify By: tina boyer DateTime : 10/23/19 17 09:30:00 AM Not Available Not Available Not Available Wellbutri n 75 mg tablet take 1 tablet by oral route 3 times every day 07/15 completed Prescrib ed Elsewher e: Yes Loca tion: [facility] odify By: nicki lucianountqing DateTime : 07/12/20 11 07:50:58 PM Not [...] ed Elsewher e: Yes Loca tion: [facility] odify By: tina Modi ncounter DateTime : 10/23/19 17 09:30:00 AM Not Available Not Available Not Available tamoxifen 20 mg tablet TAKE 1 TABLET BY MOUTH EVERY DAY active Not Available Not Available No t Available Bactrim DS 800 mg-160 mg tablet take 1 tablet by oral route every 12 hours 11/03 completed Prescrib ed Elsewher e: No Locat ion: [facility] odify By: cesar duenas DateTime : 10/05/19 13 09:37:33 AM Not Available Not Available Not Available Vitamins and Minerals tablet 02/11 completed Prescrib ed Elsewher e: Yes Loca tion: [facility] odify By: nicki boyer DateTime : 07/15/20 11 09:00:00 AM Not Available Not Available Not Available Calcium-5 00 500 mg (as calcium carbonate 1,250 mg) tablet active Prescrib ed Elsewher e: Yes Loca tion: [facility]vel[facility] modi [facility] odify By: tina boyer DateTime : 10/23/19 17 09:30:00 AM Not Available Not Available Not Available iron active Not Available Not Availa ble Not Available Vitamin D3 10 mcg (400 unit) capsule active Prescrib ed Elsewher e: Yes Loca tion: [facility] odify By: cesar duenas DateTime : 11/30/19 14 11:30:00 AM Not Available Not Available Not Available biotin 5 mg tablet active Prescrib ed Elsewher e: Yes Loca tion: [facility]velin modi [facility] odify By: tina boyer DateTime : 10/23/19 17 09:30:00 AM Not Available Not Available Not Available Chlorella powder 05/08 completed Prescrib ed Elsewher e: Yes [facility] By: tina boyer DateTime : 10/23/19 17 09:30:00 AM Not Available Not Available Not Available Vitals Date Recorded Body height Body mass index (BMI) Body weight Systolic blood pressure Diastolic blood pressure Provider Name and Address Organization Details Last Updated DateTime 05/08/2021 160.02 cm 31.9 kg/m2 55357.63 g 108 mm[Hg] 69 mm[Hg] Naila Ratliff [facility] 13:13:20 Date Recorded Body height Body mass index (BMI) Body weight Provider Name and Address Organization Details Last Updated DateTime 02/11/2022 160.02 cm 31.9 kg/m2 54781.63 g Naila Ratliff [facility] 02/11/2022 12:41:08 Date Recorded Systolic blood pressure Diastolic blood pressure Provider Name and Address Organization Details Last Updated DateTime 02/11/2022 122 mm[Hg] 82 mm[Hg] Salena Bryant, [facility]- [address], [place], [address], [facility] 02/11/2022 13:00:23 Date Recorded Body height Body mass index (BMI) Body weight Systolic blood pressure Diastolic blood pressure Systolic blood pressure Diastolic blood pressure Provider Name and Address Organization Details Last Updated DateTime 4 160.02 cm 32.9 kg/m2 96891.1 8 g 175 mm[Hg] 84 mm[Hg] 134 mm[Hg] 82 mm[Hg] Xochitl Jean [facility] 16:45:16 Social History Question Answer Notes LastModified by Organizat ion Details LastModified Time Tobacco Smoking Status Never Smoker Freida matos, [facility] 02/11/2022 12:30:05 Are You Blind Or Do You Have Difficulty Seeing? No Information not available 05/08/2021 What Is Your Level Of Caffeine Consumption? Occasional Information not available 05/08/2021 How Much Tobacco Do You Chew? None Information not available 08/01/2024 In The 14 Days Before Symptom Onset, Have You Had Close Contact With A Laboratory-conf irmed COVID-19 While That Case Was Ill? Yes [...] Or The Highest Degree You Have Received? [id number] Information not available 08/01/2024 Are There Any Guns Present In Your Home? No Information not available 08/01/2024 Do You Use Your Seat Belt Or Car Seat Routinely? Yes Information not available 05/08/2021 Do You Have Smoke And Carbon Monoxide Detectors In Your Home? Yes Information not available 05/08/2021 How Much Tobacco Do You Smoke? No Information not available 08/01/2024 Do You Use Sunscreen Routinely? Yes Information not available 05/08/2021 Have You Used IV Drugs? No Information not available 08/01/2024 Sex: Unknown Functional Status Question Answer Note LastModified by Organizat ion Details LastModified Time Do you use any illicit or recreational drugs? No Information not available 05/08/2021 What is your level of alcohol consumption? Occasional Information not available 05/08/2021 Are you able to walk? YESWOREST Information not available 05/08/2021 What is your occupation? Retired Information not available 08/01/2024 What is your exercise level? Moderate Information not available 08/01/2024 Mental Status Question Answer Note LastModified by Organization D etails LastModified Time Do you feel stressed (tense, restless, nervous, or anxious, or unable to sleep at night)? [id number] Information not available 05/08/2021 Family History Relationship Description Onset Age of this Age Resolved Age Notes LastModified by Organization Details LastModified Time Mother Disorder of thyroid gland Not available 2021 12:41:22 Maternal Grandmother Disorder of thyroid gland Not available 2021 12:41:22 Maternal Grandmother Diabetes mellitus Not available 2021 12:41:22 Maternal Grandmother Phlebitis [email or web address] Not available 15:57:26 Maternal Grandmother Malignant tumor of breast Not available 2023 15:57:26 Father Congenital heart disease [email or web address] Not available 2023 15:57:26 Father Inflammatory disease of liver [email or web address] Not available 2023 15:57:26 Father Diabetes mellitus Not available 2023 15:57:26 Brother Diabetes mellitus Not available 2021 12:41:22 Maternal Uncle Malignant neoplasm of lung Not available 2021 12:41:22 Paternal Aunt Malignant tumor of breast Not available 2021 12:41:22 Maternal Aunt Seizure disorder Not available 2023 15:57:26 Maternal Aunt Disorder of thyroid gland [email or web address] Not available 2023 15:57:26 Maternal Aunt Malignant tumor of breast [email or web address] Not available 2023 15:57:26 Medical History Condition [...] SNOMED-CT Code Diagnosis ICD10 Code Diagnosis Note [id number] [facility] [address] [address] 05/08/2021 12:56:57 05/08/2021 13:43:12 Gynecologic examination 08585963 Z01.419 Take Calcium with Vitamin D 12-1500mg daily. Do monthly self breast exams. It is advised to get annual flu shot in the fall and she could obtain at [facility] or [facility] care clinic. If you haven't received [...] on q5yrs (mamaged by PCP) Skin irritation [id number] 7 L30.9 If does not help please refer to derm. [id number] Salena Bryant , [facility] [address] [address] 02/11/2022 12:28:32 02/11/2022 15:13:40 Postmenopausal osteoporosis 017439112 M81.0 Today we reviewed Dexa results.Co unseled on Risks/Bene fits of treatment pharma therapy vs no Rx txment and only lifestyle changes.Re ferred to IO website.We discussed her current medication s/therapie s/health [...] counseling and review of plan of care. [id number] Gildardo Vidales MD [facility] [address] [address] 08/01/2024 15:55:14 08/02/2024 12:20:44 Gynecologic examination 60993113 Z01.419 WWEPap - not indicatedS TI screen [...] consult advised.Qu estions have been answered. Osteoporosis 70344571 M8 1.0 Health Concerns Section Related Observation LastModified by Organization Detai ls LastModified Time None Recorded Concern Status LastModified by Organization Details LastModified Time None Recorded Advance Directives Directive None Recorded Payers Encounter Date Sequence Insurance Name Policy Number Policy Shepard Covered Member ID Shepard Member ID Guarantor Name 05/08/2021 1 [place] Christelle R Maria [id number] Christelle R Maria 05/08/2021 2 [employer] - PLAN F (MEDICARE SUPPLEMENT) Christelle R Maria [id number] Christelle R Maria 02/11/2022 1 [place] Christelle R Maria [id number] Christelle R Maria 02/11/2022 2 [employer] - PLAN F (MEDICARE SUPPLEMENT) Christelle R Maria [id number] Christelle R Maria 08/01/2024 1 [place] Christelle R Maria [id number] Christelle R Maria 08/01/2024 2 [employer] - PLAN F (MEDICARE SUPPLEMENT) Christelle R Maria [id number] Christelle R Maria Notes Date Note Type Note Provider Name and Address Organization Details Recorded Time 05/08/2021 text/html Annual Nursery Laborer Post-MenopausalRepor jojo bypatient.Menopausal Symptoms:no menopausal symptoms; normal [...] needs to schedule bone density [facility] [address], [place], [address], [facility] 05/08/2021 13:35:16 02/11/2022 text/html Here today for b one health discussion and Dexa review. [facility] [address], [place], [address], [facility] 02/11/2022 14:37:29 08/01/2024 text/html Annual Nursery Laborer Post-MenopausalRepor jojo bypatient.Menopausal Symptoms:no menopausal symptoms; normal [...] labs UTD/PCP ALVAREZ Estrada [address], [place], [address], [facility] 08/02/2024 09:34:56 OBGyn Episode No OBEpisode recorded.
--- OUTSIDE RECORDS SUMMARY | 2025-01-17 14:43 | XMS_ITS | Clinical Summary ---
Author Organization [facility] Address [address] [place] [address] Care Team Providers Care Floor Sweeper Name Role Phone Caleb Elizabeth MD Primary Care Provider [phone] Alma Erickson BLOW MOLDER Unavailable [phone] Allergies Active Allergy Reactions Criticality Noted Date [...] 1 tablet (150 mcg total) by mouth restrictive preparation operator before breakfast Active alendronate (FOSAMAX) 70 mg tabletIndications :Age-related osteoporosis without current pathological fracture Take 1 tablet (70 mg total) by mouth every 7 days Take in the morning with a full glass of water, on an empty stomach, and do not take anything else by mouth or lie down for the next 30 min. 12 tablet 3 5 10/20/19 26 Active Active Problems No known active problems Encounters Date Type Department Care Team Description 11/06/2024 Results Follow-Up [facility] [address] [phone] Joselin Grider MD 10/20/2024 10:30 AM WET PROCESS MILLER Office Visit [facility] [address] [phone] Joselin Grider MD Age-related osteoporosis without current [...] on file Legal Sex Female 8:41 AM WET PROCESS MILLER Gender Identity Not on file Sexual Orientation Not on file Obstetrics History Last Filed Vital Signs Vital Sign Reading Time Taken Comments Blood Pressure 124/60 10/20/2024 10:23 AM WET PROCESS MILLER Pulse 80 10/20/2024 10:23 AM WET PROCESS MILLER Temperature - - Respiratory Rate 16 10/20/2024 10:23 AM WET PROCESS MILLER Oxygen Saturation - - Inhaled Oxygen Concentration - - Weight 84.4 kg (186 lb) 10/20/2024 10:23 AM WET PROCESS MILLER Height 160 cm (5' 3 ) 10/20/2024 10:23 AM WET PROCESS MILLER Body Mass Index 32.95 10/20/2024 10:23 AM WET PROCESS MILLER Plan of Treatment Health Maintenance Due Date [...] THYROID FUNCTION CASCADE Routine 10/26/2024 12:01 PM WET PROCESS MILLER Age-related osteoporosis without current pathological fracture Acquired hypothyroidism VITAMIN D 25 HYDROXY Routine 10/26/2024 12:01 PM WET PROCESS MILLER Vitamin D deficiency PTH Routine 10/26/2024 12:01 PM WET PROCESS MILLER Age-related osteoporosis without current pathological fracture COMPREHENSIVE METABOLIC PANEL Routine 10/26/2024 12:01 PM WET PROCESS MILLER Age-related osteoporosis without current pathological fracture from Last 3 Months Results * Thyroid Function [place] (10/26/2024 12:01 PM WET PROCESS MILLER) TSH 2.210 0.450 - 4.500 uIU/mL [facility] - 01 Comment: No apparent thyroid disorder. Additional testing not indicated. In rare instances, Secondary Hypothyroidism as well as Subclinical Hypothyroidism have been reported in some patients with normal TSH values. Blood 10/26/2024 12:0 1 PM WET PROCESS MILLER 10/26/2024 Narrative [facility] - 10/27/2024 8:11 AM WET PROCESS MILLER Performed at: 01 - [address] [id number] Chaplain Resident: Aron Busch PhD, Phone: [phone] us Joselin Ulloa MD LAB BLOOD ORDERABLE S Final Result [facility] - 01 * Vitamin D 25 hydroxy (10/26/2024 12:01 PM WET PROCESS MILLER) Vitamin D, 25-Hydroxy 65.4 30.0 - 100.0 ng/mL [facility] - 01 Comment: Vitamin D deficiency has been defined by the [place] of Medicine and an Endocrine Society practice guideline as a level of serum 25-OH vitamin D less than 20 ng/mL (1,2). The Endocrine Society went on to further define vitamin D insufficiency as a level between 21 and 29 ng/mL (2). 1. IOM ([place] of Medicine). 2010. Dietary reference intakes for calcium and D. [place]: The National Academies Press. 2. Deja MF, Chevy NC, Amalia ROTHMAN, et al. Evaluation, treatment, and prevention of vitamin D deficiency: an Endocrine Society clinical practice guideline. JCEM. 2010; 96(7):1911-30. Blood 10/26/2024 12:0 1 PM WET PROCESS MILLER 10/26/2024 Narrative [facility] - 10/27/2024 7:09 AM WET PROCESS MILLER Performed at: [address] [id number] Chaplain Resident: Aron Busch PhD, Phone: [phone] us Joselin Ulloa MD LAB BLOOD ORDERABLE S Final Result [facility] 01 * PTH (10/26/2024 12:01 PM WET PROCESS MILLER) PTH Intact 17 15 - 65 pg/mL [facility] - 01 Blood 10/26/2024 12:0 1 PM WET PROCESS MILLER 10/26/2024 Narrative [facility] - 10/27/2024 10:10 AM WET PROCESS MILLER Performed at: [facility] [address] [id number] Chaplain Resident: Aron Busch PhD, Phone: [phone] Specimen Comment: A courtesy copy of this report has been sent to [phone] us Joselin Ulloa MD LAB BLOOD ORDERABLE S Final Result [facility] - 01 * Comprehensive metabolic panel (10/26/2024 12:01 PM WET PROCESS MILLER) Glucose 93 70 - 99 mg/dL [facility] [...] - 01 Blood 10/26/2024 12:0 1 PM WET PROCESS MILLER 10/26/2024 Narrative [facility] - 10/27/2024 8:11 AM WET PROCESS MILLER Performed at: - [facility] [address] [id number] Chaplain Resident: Aron Busch PhD, Phone: [phone] us Joselin Ulloa MD LAB BLOOD ORDERABLE S Final Result [facility] - 01 from Last 3 Months Insurance [facility] MEDICARE [facility] Care Teams Floor Sweeper Relationship Specialty Start Date End Date Caleb Elizabeth MD [address] [facility] [address] [place] [address] PCP - General Internal Medicine 04/07/18 lAma Erickson NP [address] [place] [address] Nurse Practitioner Obstetrics and Gynecology 08/17/24
--- OUTSIDE RECORDS SUMMARY | 2025-01-17 14:43 | XMS_ITS | Clinical Summary ---
Author Organization [facility] Address [address] [place] [address] Care Team Providers Care Montessori Teacher Name Role Phone Caleb Elizabeth MD Primary Care Provider [phone] Allergies Active Allergy Reactions Criticality Noted Date [...] Encounters Date Type Department Care Team Description 01/02/2025 1:54 PM CDT - 01/02/2025 11:59 PM CDT Hospital Encounter [facility] MRI [address] [place] [address] Uri Francois MD Discharge Disposition: Home or Self Care (Routine Discharge) 01/02/2025 Travel from Last 3 Months Family History Medical History Relation Comments Liver [...] Description 03/21/2025 10:20 AM CDT Office Visit [facility] - [place] [address] [address] [place] [address] Jeannette Fields MD [address] [place] [address] Health Maintenance Due Date Last Done Comments Colorectal Cancer Screening Colonoscopy (10 Years) 1955 Hepatitis C 12/16/1973 DTaP, Tdap and Td Vaccines ( 1 - Tdap) 12/16/1974 Pneumococcal Vaccine: 50+ Years (1 of 1 - PCV) 12/16/2005 Zoster Vaccines (1 of 2) 12/16/2005 Annual Medicare Wellness Visit 12/16/2020 Dexa Scan (General) 12/16/2020 Mammogram Screening 03/11/2023 03/11/2021 COVID-19 Vaccine (3 - 2023-2 5 season) 2024 12/15/2020, 11/22/2020 RSV Immunization or 60+ Years (1 - [...] Procedure Name Priority Date/Time Associated Diagnosis Comments MRI SHOULDER LT WO CON Routine 01/02/2025 2:25 PM CDT Other shoulder lesions, left shoulder MG DIAGNOSTIC RT DIGI Routine 03/11/2021 2:52 PM CDT Mass of right breast Abnormal mammogram from Last 3 Months or Most Recently Relevant to Health Maintenance Results * MRI SHOULDER LT WO CON (01/02/2025 2:25 PM CDT) Anatomical Region Laterality Modality Shoulder Magnetic Resonan ce 01/03/2025 11:1 8 AM CDT Impressions 01/03/2025 11:29 AM CDT IMPRESSION: Slight thickening and heterogeneous abnormal signal lateral supraspinatus tendon most suggestive of tendinitis or tendinosis, less likely some intrasubstance tendinous tearing. Joint effusion. Tiny cysts subacromial bursal fluid collection. Mild arthritis acromioclavicular and glenohumeral joints. Referred By: URI FRANCOIS Interpreted By: Matthieu Deras MD, 01/03/2025 11:18 AM Narrative 01/03/2025 11:29 AM CDT [address] [address] 01/02/2025, 1424 hours. HISTORY: Left shoulder pain for 6 months. Limited range of motion. EXAM: MRI the left shoulder without contrast. MR imaging was performed in the axial, the oblique sagittal and the oblique coronal planes utilizing T1, fat sat proton density and fat sat T2 sequence imaging. No comparison. FINDINGS: Slight thickening and heterogeneous increased fat-sat proton density increased fat-sat T2 signal in the lateral aspect of the supraspinatus tendon suggesting tendinitis, tendinosis and/or some partial intrasubstance tearing. I see no definite evidence of full-thickness rotator cuff tear. Small glenohumeral joint effusion. Small amount of fluid in the subacromial bursa. No fluid accumulation in the subdeltoid bursa. Infraspinatus and subscapularis tendons are intact and normal. The tendon of long head of the biceps is intact and normally positioned in the bicipital groove the humerus. No marrow replacement or gross bone destruction proximal humerus nor glenoid of the scapula. No periarticular soft tissue mass. Minimal arthritis acromioclavicular joint. Procedure Note Artemio Deras MD - 01/03/2025 [facility] [address] [facility] [address] 01/02/2025, 1424 hours. HISTORY: Left shoulder pain for 6 months. Limited range of motion. EXAM: MRI the left shoulder without contrast. MR imaging was performed in the axial, the oblique sagittal and theoblique coronal planes utilizing T1, fat sat proton density and fat sat [id number] imaging. No comparison. FINDINGS: Slight thickening and heterogeneous increased fat-sat protondensity increased fat-sat T2 signal in the lateral aspect of thesupraspinatus tendon suggesting tendinitis, tendinosis and/or some partialintrasubstance tearing. I see no definite evidence of full-thicknessrotator cuff tear. Small glenohumeral joint effusion. Small amount offluid in the subacromial bursa. No fluid accumulation in the subdeltoidbursa. Infraspinatus and subscapularis tendons are intact and normal.The tendon of long head of the biceps is intact and normally positioned inthe bicipital groove the humerus. No marrow replacement or gross bonedestruction proximal humerus nor glenoid of the scapula. No periarticularsoft tissue mass. Minimal arthritis acromioclavicular joint. IMPRESSION: Slight thickening and heterogeneous abnormal signal lateral supraspinatustendon most suggestive of tendinitis or tendinosis, less likely someintrasubstance tendinous tearing. Joint effusion. Tiny cysts subacromialbursal fluid collection. Mild arthritis acromioclavicular andglenohumeral joints. Referred By: URI FRANCOIS Interpreted By: Matthieu Deras MD, 01/03/2025 11:18 AM us Uri Francois MD MRI Final Resul t * MG DIAGNOSTIC RT DIGI (03/11/2021 2:52 [...] 02/12/2021; digital mammograms, 01/13/2021 (both exams from [facility]). Technique:CC and true lateral right digital [...] Recently Relevant to Health Maintenance Insurance MEDICARE [facility] Care Teams Montessori Teacher Relationship Specialty Start Date End Date Caleb Elizabeth MD [address] [place] [address] PCP - General INTERNAL MEDICINE 03/11/21
--- OUTSIDE RECORDS SUMMARY | 2025-01-17 14:43 | XMS_ITS | Referral Summary ---
Author Organization [facility] Address [address] [place] [address] Care Team Providers Care Screen Door Maker Name Role Phone Caleb Elizabeth MD Primary Care Provider [phone] Alma Erickson LABORER HIGH DENSITY PRESS Unavailable [phone] Encounters Date Type Department Care Team Description 11/06/2024 Results Follow-Up [facility] of [address] [address] Joselin Grider MD 10/20/2024 10:30 AM MARKETING COMMUNICATIONS ASSISTANT Office Visit [facility] [address] [address] Joselin Grider MD Age-related osteoporosis [...] 1 tablet (150 mcg total) by mouth fabrication manager before breakfast Active alendronate (FOSAMAX) 70 mg [...] Active Active Problems No known active problems Social History Tobacco Use Types Packs/Day Years Used Date Smoking Tobacco: Never Smokeless Tobacco: Never Tobacco Cessation:Counseling Given: Not Answered Comments Unknown Sex and Gender Information Value Date Recorded Sex Assigned at Not on file Legal Sex Female 8:41 AM MARKETING COMMUNICATIONS ASSISTANT Gender Identity Not on file Sexual Orientation Not on file Last Filed Vital Signs Vital Sign Reading Time Taken Comments Blood Pressure 124/60 10/20/2024 10:23 AM MARKETING COMMUNICATIONS ASSISTANT Pulse 80 10/20/2024 10:23 AM MARKETING COMMUNICATIONS ASSISTANT Temperature - - Respiratory Rate 16 10/20/2024 10:23 AM MARKETING COMMUNICATIONS ASSISTANT Oxygen Saturation - - Inhaled Oxygen Concentration - - Weight 84.4 kg (186 lb) 10/20/2024 10:23 AM MARKETING COMMUNICATIONS ASSISTANT Height 160 cm (5' 3 ) 10/20/2024 10:23 AM MARKETING COMMUNICATIONS ASSISTANT Body Mass Index 32.95 10/20/2024 10:23 AM MARKETING COMMUNICATIONS ASSISTANT Plan of Treatment Not on file Procedures Procedure Name Priority Date/Time Associated Diagnosis Comments THYROID FUNCTION CASCADE Routine 10/26/2024 12:01 PM MARKETING COMMUNICATIONS ASSISTANT Age-related osteoporosis without current pathological fracture Acquired hypothyroidism VITAMIN D 25 HYDROXY Routine 10/26/2024 12:01 PM MARKETING COMMUNICATIONS ASSISTANT Vitamin D deficiency PTH Routine 10/26/2024 12:01 PM MARKETING COMMUNICATIONS ASSISTANT Age-related osteoporosis without current pathological fracture COMPREHENSIVE METABOLIC PANEL Routine 10/26/2024 12:01 PM MARKETING COMMUNICATIONS ASSISTANT Age-related osteoporosis without current pathological fracture from Last 3 Months Results * Thyroid Function [place] (10/26/2024 12:01 PM MARKETING COMMUNICATIONS ASSISTANT) TSH 2.210 0.450 - 4.500 uIU/mL [facility] - 01 Comment: No apparent thyroid disorder. Additional testing not indicated. In rare instances, Secondary Hypothyroidism as well as Subclinical Hypothyroidism have been reported in some patients with normal TSH values. Blood 10/26/2024 12:0 1 PM MARKETING COMMUNICATIONS ASSISTANT 10/26/2024 Narrative [facility] - 10/27/2024 8:11 AM MARKETING COMMUNICATIONS ASSISTANT Performed at: [address] [place] [id number] Code Machine Operator: Aron Busch PhD, Phone: [phone] us Joselin Ulloa MD LAB BLOOD ORDERABLE S Final Result [facility] - * Vitamin D 25 hydroxy (10/26/2024 12:01 PM MARKETING COMMUNICATIONS ASSISTANT) Vitamin D, 25-Hydroxy 65.4 30.0 - 100.0 ng/mL [facility] - 01 Comment: Vitamin D deficiency has been defined by the [place] of Medicine and an Endocrine Society practice guideline as a level of serum 25-OH vitamin D less than 20 ng/mL (1,2). The Endocrine Society went on to further define vitamin D insufficiency as a level between 21 and 29 ng/mL (2). 1. IOM ([place] of Medicine). 2010. Dietary reference intakes for calcium and D. [place]: The National Academies Press. 2. Deja MF, Chevy NC, Amalia ROTHMAN, et al. Evaluation, treatment, and prevention of vitamin D deficiency: an Endocrine Society clinical practice guideline. JCEM. 2010; 96(7):1911-30. Blood 10/26/2024 12:0 1 PM MARKETING COMMUNICATIONS ASSISTANT 10/26/2024 Narrative [facility] - 10/27/2024 7:09 AM MARKETING COMMUNICATIONS ASSISTANT Performed at: 01 - [address] [id number] Code Machine Operator: Aron Busch PhD, Phone: [phone] Joselin Ulloa MD LAB BLOOD ORDERABLE S Final Result Performing Organization Address [facility] de Phone Number [facility] - * PTH (10/26/2024 12:01 PM MARKETING COMMUNICATIONS ASSISTANT) [facility] PTH Intact 17 15 - 65 pg/mL [facility] - 01 Blood 10/26/2024 12:0 1 PM MARKETING COMMUNICATIONS ASSISTANT 10/26/2024 Narrative [facility] - 10/27/2024 10:10 AM MARKETING COMMUNICATIONS ASSISTANT Performed at: [address] [place] [id number] Code Machine Operator: Aron Busch PhD, Phone: [phone] Specimen Comment: A courtesy copy of this report has been sent to [phone] Joselin Ulloa MD LAB BLOOD ORDERABLE S Final Result Performing Organization Address [facility] Co de Phone Number [facility] - * Comprehensive metabolic panel (10/26/2024 12:01 PM MARKETING COMMUNICATIONS ASSISTANT) [facility] Glucose 93 70 - 99 mg/dL [facility] [...] - 01 Blood 10/26/2024 12:0 1 PM MARKETING COMMUNICATIONS ASSISTANT 10/26/2024 Narrative [facility] - 10/27/2024 8:11 AM MARKETING COMMUNICATIONS ASSISTANT Performed at: - [facility] [address] [id number] Code Machine Operator: Aron Busch PhD, Phone: [phone] Joselin Ulloa MD LAB BLOOD ORDERABLE S Final Result [facility] - 01 from Last 3 Months Insurance MEDICARE [facility] Care Teams Screen Door Maker Relationship Specialty Start Date End Date Caleb Elizabeth MD [address] [facility] [address] [place] [address] PCP - General Internal Medicine 04/07/18 Alma Erickson NP [address] [place] [address] Nurse Practitioner Obstetrics and Gynecology 08/17/24
--- OUTSIDE RECORDS SUMMARY | 2025-01-17 14:43 | XMS_ITS | Clinical Summary ---
Author Organization [facility]alba Henry Address [address] [place] [address] Care Team Providers Care Safety And Health Consultant Name Role Phone Caleb Elizabeth DO Primary Care Provider [phone] Allergies Active Allergy Reactions Criticality Noted Date [...] Take 134 mg by mouth. Active CALCIUM ACETATE,PHOSPHA T BIND, ORAL Take by mouth. Ac tive MAGNESIUM CITRATE ORAL Take by mouth. Ac [...] mouth daily. 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 Encounters Date Type Department Care Team Description 11/22/2024 External Device Data STL ABSTRACTION Provider, Abstract 11/15/2024 Orders Only [facility] - [place] [address] [place] [phone] Lee Lovett MD 11/14/2024 1:15 PM CDT Office Visit [facility] [address] [place] [phone] Lee Lovett MD Ductal carcinoma in situ [...] Description 05/22/2025 11:45 AM CDT Office Visit [facility] - [place] [address] [facility] [address] [place] [address] Lee Lovett MD [address] [facility] [address] [place] [address] Health Maintenance Due Date Last Done Comments Pre-Diabetes and Diabetes Screening 1955 DTAP/TDAP/TD VACCINES (1 - Tdap) 12/16/1974 COLORECTAL SCREENING 12/16/2000 Colorectal Cancer Screening 12/16/2000 FIT-DNA Q 3 years 12/16/2000 FIT/FOBT Q 1 year 12/16/2000 Flex Sig/CT Colonography Q 5 years 12/16/2000 PNEUMOCOCCAL VACCINE 50+ YEA RS (1 of 1 - PCV) 12/16/2005 ZOSTER VACCINE (1 of 2) 12/16/2005 INFLUENZA VACCINE (#1) 2024 06/25/2021 BREAST CANCER SCREENING 05/01/2025 05/01/20 24, 05/01/2024, 05/01/2024, Additional history exists OSTEOPOROSIS SCREENING 05/01/2029 05/01/2024, 2021 RSV VACCINE (60+ or ) (1 - 1-dose 75+ series) 12/16/2030 Procedures Procedure Name Priority Date/Time Associated Diagnosis Comments BASIC METABOLIC PANEL Routine 11/14/2024 9:39 AM CDT MAMMO SCREENING BILAT Routine 05/01/2024 4:06 PM CDT from Last 3 Months or Most Recently Relevant to Health Maintenance Results * BASIC METABOLIC PANEL (11/14/2024 9:39 AM CDT) Blood us Lee Lovett MD CHEMISTRY ORDERABLES Final Resu lt * MAMMO SCREENING BILAT (05/01/2024 4:06 PM CDT) Anatomical Region Laterality Modality Breast Bilateral Mammography us Lee Lovett MD MAMMO ORDERABLES Final Result from Last 3 Months or Most Recently Relevant to Health Maintenance Insurance MEDICARE PART A AND B [facility] SUPP MEDICARE PART A AND B [facility] SUPP Care Teams Safety And Health Consultant Relationship Specialty Start Date End Date Caleb Elizabeth DO [address] [address] PCP - General Internal Medicine 05/06/21
--- NOTE | 2025-01-17 15:16 | ECG_ITS ---
Test Date: 2025-01-17 15:30:43 Measurements Intervals [place] Rate: 82 P: 42 CA: 158 QRS: 20 QRSD: 73 T: 38 QT: 371 QTc: 435 Interpretive Statements SINUS RHYTHM No previous ECG available for comparison Electronically Signed On 01-17-2025 18:30:06 CDT by Belen Hernadez
== END 2025-01-17 14:34 | disposition home or self-care (01) ==
PROVIDERS: PCP Internal Medicine; Visit Provider Orthopaedic Surgery
DX: M17.11 Unilateral primary osteoarthritis, right knee (principal); R00.2 Palpitations
CPT/HCPCS: 73700; 93005

== ENCOUNTER 2025-02-08 14:06 | Outpatient (CLI) | payer MEDICARE, SELFPAY ==
--- NOTE | ~2025-02-08 | CT_ITS ---
CT of the Abdomen and Pelvis: Indication: Intra-abdominal swelling or mass Technique: 2.5 mm axial scans were obtained through the abdomen and pelvis following intravenous adm inistration of 100 cc of Omnipaque 350. Dose reduction technique was used on this scan by utilizing a utomated exposure control and iterative reconstruction technique. The dose-length product (DLP) was 8 99.82 mGy-cm. Findings: Scans through the lung bases are unremarkable. There is diffuse hepatic steatosis. The spleen, pancreas, gallbladder, adrenals and kidneys are withi n normal limits. No evidence of aortic aneurysm. No lymphadenopathy. No bowel obstruction or bowel wall thickening. There is no evidence to suggest acute appendicitis. Images through the pelvis were performed. There is an extremely large right adnexal mass extending tucker periorly into the right mid abdomen, measuring up to approximately 15.1 x 14.0 x 23.2 cm in extent. T here is a prominent area of macroscopic fat at the inferior margin of the lesion (axial image 156 for example). There are multiple scattered coarse calcifications within the lesion. There are probable c ystic and soft tissue components within the lesion as well. Status post probable prior hysterectomy. No left adnexal mass evident. No ascites. Urinary bladder unremarkable. 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 Given the large size of the lesion and lack of prior exams, the potential of narinder gnant transformation should be considered. Gynecologic surgical consultation/follow-up advised. Diffuse hepatic steatosis. Reviewed, dictated and finalized at location M. 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 Given the large size of the lesion an d lack of prior exams, the potential of malignant transformation should be cons idered. Gynecologic surgical consultation/follow-up advised. Diffuse hepatic steatosis.
[2025-02-08 14:31] LABS: Estimated Glomerular Filt Rate > 60
--- OUTSIDE RECORDS SUMMARY | 2025-02-08 14:51 | XMS_ITS | Clinical Summary ---
Author Organization [facility] Rosalba dietrich [facility] Address [address] [place] [address] Care Team Providers Care Boiling Tub Operator Name Role Phone Caleb Elizabeth DO Primary Care Provider [phone] Allergies Active Allergy Reactions Criticality Noted Date [...] Encounters Date Type Department Care Team Description 01/24/2025 External Device Data STL ABSTRACTION Provider, Abstract 01/23/2025 External Device Data STL ABSTRACTION Provider, Abstract 11/22/2024 External Device Data STL ABSTRACTION Provider, Abstract 11/15/2024 Orders Only [facility] Oncology and [facility] [address] [place] [address] Lee Lovett MD 11/14/2024 1:15 PM CDT Office Visit [facility] Oncology and [facility] [address] [place] [address] Lee Lovett MD Ductal carcinoma in situ [...] 1:28 PM CDT Height 161.3 cm (5' 3.5) 06/10/2022 1:14 PM CDT Body Mass Index 32.95 06/10/2022 1:14 PM CDT Plan of Treatment Upcoming Encounters Date Type Department Care Team (Late st Contact Info) Description 05/22/2025 11:45 AM CDT Office Visit [facility] Oncology and Hematology - [place] [address] [place] [address] Lee Lovett MD [address] [facility] [address] [place] [address] Health Maintenance Due Date Last [...] Maintenance Insurance MEDICARE PART A AND B [facility] SUPP MEDICARE PART A AND B [facility] SUPP Care Teams Boiling Tub Operator Relationship Specialty Start Date End Date Caleb Elizabeth DO [address] [address] PCP - General Internal Medicine 05/06/21
--- OUTSIDE RECORDS SUMMARY | 2025-02-08 14:51 | XMS_ITS | Data Portability ---
Author Organization 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 Patient will come back in a year unless there are new symptoms. [email or web address] Not available 05/08/2021 13:12:13 08/01/2024 08/01/2024 Annual gynecological exam performed. Patient will come back in a year unless there are new symptoms. [email or web address] Not available 06/15/2024 12:04:20 Plan of Treatment Reminders Order Date Submit Date Provider Last Modified By Organization Details Last Modified Time Details Appointments None recorded. Lab None recorded. Referral None recorded. Procedures None recorded. Surgeries None recorded. Imaging None recorded. Medication Orders nystatin-t riamcinolo ne 100,000 unit/gram- 0.1 % topical ointment 2020 021 oss8 [id number], [address] [place], [address], 12:41:53 Patient TargetsNo targets recorded. Patient InstructionsNo instructions recorded. Reason for Referral None Reported. Results Created Date Observation Date Name Description Value Unit Range Abnormal Flag Note LastModifiedBy Organization Detail LastModifiedTime 01/29/20 22 DEXA No observ ation record ed. [email or web address] [facility] [address], [place], [address], 02/13/2022 17:16:39 02/04/20 22 DEXA No observ ation record ed. [facility] [address], [place], [address], 02/10/2022 18:35:05 08/08/20 24 05/01/2024 DEXA, axial skele ton + verte bral fract ure asses sment No observ ation record ed. [email or web address], [place], [address], 08/17/2024 16:28:01 Result Notes None recorded. Problems Name Problem SNOMED Code Status Onset Date Resolution Date Notes Provider Name and Address Organization Details Recorded Time Speciali zed medical examinat ion Completed 201305/08/2021 Gynecolog ical Examinati on;Record ed Elsewhere : No Locati on: [facility] So urce: EHR Chron ic: N Practic e ID: 0001 Bill able Time: 11:30:[address] [facility] 11:16:[address] Concept Completed 201605/08/2021 Encntr for general adult medical exam w/o abnormal findings; Recorded Elsewhere : No Locati on: [facility] So urce: EHR Chron ic: N Practic e ID: 0001 Bill able Time: 11:15:00 AM Naila Gaudencio [facility] 11:16:48 Evaluati on finding [id number] Completed 201705/08/2021 Oth abn and inconclus surya findings on dx imaging of breast;Re corded Elsewhere : No Locati on: [facility] So urce: EHR Chron ic: N Practic e ID: 0001 Bill able Time: 03:35:28 PM Naila Ratliff [facility] 11:16:36 Adult health examinat ion Completed 201005/08/2021 Routine Medical Exam;Willie rded Elsewhere : No Locati on: [facility] So urce: EHR Chron ic: N Practic e ID: 0001 Bill able Time: 09:00:[address] [facility] 11:16:33 Disorder of hair AND/OR hair follicle Completed 201205/08/2021 Other specified diseases of hair and hair follicles ;Recorded Elsewhere : No Locati on: [facility] So urce: EHR Chron ic: N Practic e ID: 0001 Bill able Time: 01:45:[address] [facility] 11:16:40 Microsco pic hematuri a [id number] Completed 201305/08/2021 MICROSCOP IC HEMATURIA ;Recorded Elsewhere : No Locati on: [facility] So urce: EHR Chron ic: N Practic e ID: 0001 Bill able Time: 11:30:[address] [facility] 11:16:43 Contact dermatit is [id number] Completed 201205/08/2021 Contact dermatiti s and other eczema, unspecifi ed cause;Rec orded Elsewhere : No Locati on: [facility] So urce: EHR Chron ic: N Practic e ID: 0001 Bill able Time: 01:45:[address] [facility] 11:16:38 Screenin g for malignan t neoplasm of cervix Completed 201005/08/2021 Screening for malignant neoplasms of the cervix;Re corded Elsewhere : No Locati on: [facility] So urce: EHR Chron ic: N Practic e ID: 0001 Bill able Time: 09:00:[address] [facility] 11:16:44 Body mass index 30+ - obesity [id number] Completed 01/10/ 2019 05/08/2021 Body mass index (BMI) 31.0-31.9 , adult;Rec orded Elsewhere : No Locati on: [facility] So urce: EHR Chron ic: N Practic e ID: 0001 Bill able Time: 10:00:00 AM Naila Ratliff [facility] 11:16:35 Screenin g for malignan t neoplasm of rectum Completed 201805/08/2021 Encounter for screening for malignant neoplasm of rectum;Re corded Elsewhere : No Locati on: [facility] So urce: EHR Chron ic: N Practic e ID: 0001 Bill able Time: 10:00:00 AM Naila Ratliff [facility] 11:16:[address] Concept Completed 201605/08/2021 Encntr for obstetrics gyn exam (general) (routine) w/o abn findings; Recorded Elsewhere : No Locati on: [facility] So urce: EHR Chron ic: N Practic e ID: 0001 Bill able Time: 09:30:00 AM Naila Ratliff [facility] 11:16:49 Vaginiti s and vulvovag initis Completed 201205/08/2021 Vaginitis ;Recorded Elsewhere : No Locati on: [facility] So urce: EHR Chron ic: N Practic e ID: 0001 Bill able Time: 10:45:[address] [facility] 11:16:52 Increase d frequenc y of urinatio n [id number] Completed 201605/08/2021 Frequency of micturiti on;Practi ce ID: [address] [facility] 11:16:41 Problem Notes None recorded. Procedures Surgical History Date Name Laterality Status Provider Name and Address Organization Details Recorded Time 05/01/20 24 Most Recent Bone Density completed Elina Mahajan [facility] 08/08/2024 16:22:42 04/06/20 24 Date of Last Mammogram completed [facility] 08/01/2024 16:23:30 09/06/19 21 biopsy of breast completed [facility] 05/08/2021 13:23:14 09/15/19 19 Date of Last Pap Smear completed [facility] 05/08/2021 11:17:30 09/06/19 11 Total Hysterectomy completed [facility] 08/01/2024 16:25:32 09/06/19 04 procedure on shoulder completed [facility] 05/08/2021 13:22:57 09/06/18 64 Appendectomy completed [facility] 08/01/2024 16:25:52 Imaging Results None recorded. Procedure Notes None recorded. Medical Equipment None Reported. Allergies Allergen ID Allergen Name Allergen Category Reaction Reaction Severity Criticality Documentation Date Start Date Code Code System Note Provider Name and Address Organization Details Recorded Time 47487 codeine medicatio n Not available Not available Not available 08/23/2020 2670 RxNorm Comme nt: Locat ion: [facility]; Not Available [employer] 0 14:17:44 40083 Product containin g penicilli n (product) medicatio n hives Not available Not available 08/23/2020 50142 8001 SNOMED React ion: hives ; Comme nt: Locat ion: [facility]; Not Available [employer] 0 14:17:44 59267 Substance with sulfonami de structure and antibacte rial mechanism of action (substanc e) medicatio n Not available Not available Not available 08/23/2020 64018 8003 SNOMED React ion: Troub le Breat mya; Comme nt: Locat ion: [facility]; Not Available [employer] 0 14:17:45 05614 erythromy harper medicatio n other moderate Not available 02/11/2022 4053 RxNorm Naila Ratliff [place], [place] - [facility] 12:41:19 Medications Name Sig Start Date Stop [...] Prescrib ed Elsewher e: No Locat ion: [facility] odify By: kieran tz Herbou nter DateTime : 12/07/19 13 01:45:00 PM [...] Prescrib ed Elsewher e: Yes Loca tion: [facility] M odify By: nicki boyer DateTime : 07/12/20 [...] Elsewher e: No Locat ion: Evelin modi [facility] odify By: kieran raymonder DateTime : 09/15/19 19 10:00:00 AM Not Available Not Available Not Available Zithromax Z-Christopher 250 mg tablet take 2 tablet (500MG) by oral route every day for 1 day then 1 tablet (250 mg) by oral route once daily for 4 days 11/15 completed Prescrib ed Elsewher e: No Locat ion: [facility] odify By: gmedical Encount er DateTime : 11/12/19 13 09:20:11 AM [...] Elsewher e: Yes Loca tion: [facility] odify By: nicki boyer DateTime : 07/15/20 11 09:00:00 AM Not Available Not Available Not Available potassium 99 mg tablet 05/08 completed Prescrib ed Elsewher e: Yes Loca tion: [facility] odify By: cesar duenas DateTime : 11/30/19 14 11:30:00 AM Not Available Not Available Not Available mebendazo le 100 mg chewable tablet chew 1 tablet (100MG) by oral route 2 times every day for 3 days in the morning and evening 10/01 completed Prescrib ed Elsewher e: No Locat ion: [facility] odify By: kieran corbett DateTime : 09/29/19 13 10:45:00 AM Not Available Not Available Not Available Vitamin C oral powder active Prescrib ed Elsewher e: Yes Loca tion: [facility] odify By: tina boyer DateTime : 10/23/19 17 09:30:00 AM Not Available Not Available Not Available Wellbutri n 75 mg tablet take 1 tablet by oral route 3 times every day 07/15 completed Prescrib ed Elsewher e: Yes Loca tion: [facility] odify By: nicki boyer DateTime : 07/12/20 [...] Elsewher e: Yes Loca tion: [facility] odify By: tina boyer DateTime : 10/23/19 17 09:30:00 AM Not Available Not Available Not Available tamoxifen 20 mg tablet TAKE 1 TABLET BY MOUTH EVERY DAY active Not Available Not Available No t Available Bactrim DS 800 mg-160 mg tablet take 1 tablet by oral route every 12 hours 11/03 completed Prescrib ed Elsewher e: No Locat ion: [facility] odify By: cesar duenas DateTime : 10/05/19 13 09:37:33 AM Not Available Not Available Not Available Vitamins and Minerals tablet 02/11 completed Prescrib ed Elsewher e: Yes Loca tion: [facility] odify By: nicki boyer DateTime : 07/15/20 11 09:00:00 AM Not Available Not Available Not Available Calcium-5 00 500 mg (as calcium carbonate 1,250 mg) tablet active Prescrib ed Elsewher e: Yes Loca tion: [facility] odify By: tina boyer DateTime : 10/23/19 17 09:30:00 AM Not Available Not Available Not Available iron active Not Available Not Availa ble Not Available Vitamin D3 10 mcg (400 unit) capsule active Prescrib ed Elsewher e: Yes [facility] By: cesar duenas DateTime : 11/30/19 14 11:30:00 AM Not Available Not Available Not Available biotin 5 mg tablet active Prescrib ed Elsewher e: Yes Loca tion: [facility]vel[facility] odify By: tina Modi ncounter DateTime : 10/23/19 17 09:30:00 AM Not Available Not Available Not Available Chlorella powder 05/08 completed Prescrib ed Elsewher e: Yes [facility] By: tina Modi ncounter DateTime : 10/23/19 17 09:30:00 AM Not Available Not Available Not Available Vitals Date Recorded Systolic blood pressure Diastolic blood pressure Provider Name and Address Organization Details Last Updated DateTime 02/11/2022 122 mm[Hg] 82 mm[Hg] Salena Bryant, [facility]- [address], [place], [address], [facility] 02/11/2022 13:00:23 Date Recorded Body height Body mass index (BMI) Body weight Provider Name and Address Organization Details Last Updated DateTime 02/11/2022 160.02 cm 31.9 kg/m2 95064.63 g Naila [facility] 02/11/2022 12:41:08 Date Recorded Body height Body mass index (BMI) Body weight Systolic blood pressure Diastolic blood pressure Provider Name and Address Organization Details Last Updated DateTime 05/08/2021 160.02 cm 31.9 kg/m2 07248.63 g 108 mm[Hg] 69 mm[Hg] Naila [facility] 13:13:20 Date Recorded Body height Body mass index (BMI) Body weight Systolic blood pressure Diastolic blood pressure Systolic blood pressure Diastolic blood pressure Provider Name and Address Organization Details Last Updated DateTime 4 160.02 cm 32.9 kg/m2 38225.1 8 g 175 mm[Hg] 84 mm[Hg] 134 mm[Hg] 82 mm[Hg] Xochitl Jean [facility] 16:45:16 Social History Question Answer Notes LastModified by Organizat ion Details LastModified Time Tobacco Smoking Status Never Smoker Freida Castro [facility] 02/11/2022 12:30:05 Are You Blind Or [...] Or The Highest Degree You Have Received? [id number] Information not available 08/01/2024 Are There Any [...] anxious, or unable to sleep at night)? [id number] Information not available 05/08/2021 Family History Relationship [...] available 2023 15:57:26 Father Congenital heart disease [email or web address] Not available 2023 15:57:26 Father Inflammatory disease of liver [email or web address] Not available 2023 15:57:26 Father Diabetes mellitus [email or web address] Not available 2023 15:57:26 Brother Diabetes mellitus Not available 2021 12:41:22 Maternal Uncle Malignant neoplasm of lung Not available 2021 12:41:22 Paternal Aunt Malignant tumor of breast Not available 2021 12:41:22 Maternal Aunt Seizure disorder [email or web address] Not available 2023 15:57:26 Maternal Aunt Disorder of thyroid gland Not available 2023 15:57:26 Maternal Aunt Malignant tumor of breast [email or web address] Not available 2023 15:57:26 Medical History Condition [...] SNOMED-CT Code Diagnosis ICD10 Code Diagnosis Note [id number] Salena Bryant [facility] [address] [address] 05/08/2021 12:56:57 05/08/2021 13:43:12 Gynecologic examination 83314951 Z01.419 Take Calcium with Vitamin D 12-1500mg daily. Do monthly self breast exams. It is advised to get annual flu shot in the fall and she could obtain at [facility] or [facility] care clinic. If you haven't received the [...] on q5yrs (mamaged by PCP) Skin irritation [id number] 7 L30.9 If does not help please refer to derm. [id number] Salena Bryant [facility] [address] [address] 02/11/2022 12:28:32 02/11/2022 15:13:40 Postmenopausal osteoporosis 912689406 M81.0 Today we reviewed Dexa results.Co unseled on Risks/Bene fits of treatment pharma therapy vs no Rx txment and only lifestyle changes.Re ferred to [employer] website.We discussed her current medication s/therapie s/health [...] counseling and review of plan of care. [id number] Gildardo Vidales MD [facility] [address] [address] 08/01/2024 15:55:14 08/02/2024 12:20:44 Gynecologic examination 02127251 Z01.419 WWEPap - not indicatedS TI screen [...] consult advised.Qu estions have been answered. Osteoporosis 54992426 M8 1.0 Health Concerns Section Related Observation LastModified by Organization Detai ls LastModified Time None Recorded Concern Status LastModified by Organization Details LastModified Time None Recorded Advance Directives Directive None Recorded Payers Encounter Date Sequence Insurance Name Policy Number Policy Shepard Covered Member ID Shepard Member ID Guarantor Name 05/08/2021 1 [place] Christelle Maria [id number] Christelle Fragoso Maria 05/08/2021 2 [employer] - PLAN F (MEDICARE SUPPLEMENT) Christelle Felipeer [id number] Christelle Felipeer 02/11/2022 1 [place] Christelle R Maria [id number] Christelle Felipeer 02/11/2022 2 [employer] - PLAN F (MEDICARE SUPPLEMENT) Christelle Felipeer [id number] Christelle Felipeer 08/01/2024 1 [place] Christelle Felipeer [id number] Christelle Felipeer 08/01/2024 2 [employer] [facility] [facility] - PLAN F (MEDICARE SUPPLEMENT) Christelle Felipeer [id number] Christelle Maria Notes Date Note Type Note Provider Name and Address Organization Details Recorded Time 05/08/2021 text/html Annual [employer] Car [employer] Post-MenopausalRepor jojo bypatient.Menopausal Symptoms:no menopausal symptoms; normal [...] needs to schedule bone density [facility] [address], [place], [address], [facility] 05/08/2021 13:35:16 02/11/2022 text/html Here today for b one health discussion and Dexa review. Salena Bryant [facility] [address], [place], [address], [facility] 02/11/2022 14:37:29 08/01/2024 text/html Annual [employer] Post-MenopausalRepor jojo bypatient.Menopausal Symptoms:no menopausal symptoms; normal [...] weekly since 2routine labs UTD/PCP ALVAREZ Estrada [address], [place], [address], [facility] 08/02/2024 09:34:56 OBGyn Episode No OBEpisode recorded.
--- OUTSIDE RECORDS SUMMARY | 2025-02-08 14:51 | XMS_ITS | Clinical Summary ---
Author Organization [facility] Address [address] [place] [address] Care Team Providers Care Dietitian Chief Name Role Phone Caleb Elizabeth MD Primary Care Provider [phone] Alma Erickson COMMUNICATIONS ATTENDANT Unavailable [phone] Allergies Active Allergy Reactions Criticality Noted Date Comments Codeine Nausea & Vomiting,Nausea And Vomiting,Nausea only High 04/07/2021 Erythromycin Anaphylaxis,Swelli ng High 04/07/2021 Penicillins Hives,Swelling High 04/07/2021 Sulfa (Sulfonamide Antibiotics) Other (See comments) 02/08/2025 Substance with sulfonamide structure and antibacterial mechanism of action (substance) Medications ascorbic acid (VITAMIN C) 100 mg tablet Take 1 tablet (100 mg total) by mouth daily Active calcium citrate (CALCITRATE) 950 mg (200 mg of elemental calcium) tablet 1 tablet (950 mg total) 2 (two) times a day Active latanoprost (XALATAN) 0.005 % ophthalmic solution INSTILL ONE DROP INTO BOTH EYES EVERY NIGHT AT BEDTIME Active tamoxifen (NOLVADEX) 20 mg tablet Take 1 tablet (20 mg total) by mouth daily Active levothyroxine (SYNTHROID) 150 mcg tablet Take 1 tablet (150 mcg total) by mouth mail order sorter before breakfast Active alendronate (FOSAMAX) 70 mg tabletIndication s:Age-related osteoporosis without current pathological fracture Take 1 tablet (70 mg total) by mouth every 7 days Take in the morning with a full glass of water, on an empty stomach, and do not take anything else by mouth or lie down for the next 30 min. 12 tablet 3 5 026 Active gabapentin (NEURONTIN) 300 mg capsule Take 1 capsule (300 mg total) by mouth 5 Active biotin 5 mg tablet Active magnesium gluconate 30 mg (550 mg) tablet Acti ve pramipexole (MIRAPEX) 0.25 mg tablet 5 025 Discontinu ed(No longer taking - Do not display on AVS) Active Problems Problem Noted Date Diagnosed Date Hypothyroidism (acquired) 02/08/2025 Resolved Problems Problem Noted Date Diagnosed Date Resolved Date Breast cancer 02/08/2025 02/08/2025 Encounters Date Type Department Care Team Description 02/08/2025 9:00 AM CDT Office Visit [facility] Cardiology [address] [place] [address] Cristino Carpenter MD Hypothyroidism (acquired) (Primary Dx); Lipid screening from Last 3 Months Surgical History Surgery [...] on file 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 Gender Identity Not on file Sexual Orientation Not on file Obstetrics History Last Filed Vital Signs Vital Sign Reading Time Taken Comments Blood Pressure 140/80 02/08/2025 9:11 AM CDT Pulse 77 02/08/2025 9:11 AM CDT Temperature - - Respiratory Rate 16 02/08/2025 9:11 AM CDT Oxygen Saturation 99% 02/08/2025 9:11 AM CDT Inhaled Oxygen Concentration - - Weight 86.2 kg (190 lb) 02/08/2025 9:11 AM CDT Height 160 cm (5' 3) 02/08/2025 9:11 AM CDT Body Mass Index 33.66 02/08/2025 9:11 AM CDT Plan of Treatment Health Maintenance Due Date Last Done Comments Breast Cancer Screening-Mammogram 1955 Colon Cancer Screening-Colonoscopy 1955 Depression Screening 1955 [...] 2025 09/08/2024, 07/02/2023, 07/09/2022, Additional history exists Influenza Vaccine Completed 05/12/2024, , 06/05/2022, Additional history exists Procedures Procedure Name Priority Date/Time Associated Diagnosis Comments ELECTROCARDIOGRAM REPORT Routine 025 9:33 AM CDT Hypothyroidism (acquired) POCT LIPID PANEL Routine 02/08/2025 9:19 AM CDT Lipid screening from Last 3 Months Results * Electrocardiogram Report (02/08/2025 9:33 AM CDT) Cristino Carpenter MD ECG ORDERABLES Final Re sult * (ABNORMAL) POCT lipid panel (02/08/2025 9:19 AM CDT) Cholesterol, POC 167 <200 MG/DL HDL, POC 38(A) >=40 mg/dL Triglycerides, POC 146 <=149 mg/dL LDL Cholesterol POC 99 <=129 mg/dL Chol/HDL Ratio, POC 4.4 NONE Non-HDL Cholesterol, POC 129 NONE mg/dL Cholesterol Total, POC 167 30 - 199 mg/dL Capillary blood 02/08/2025 9 :19 AM CDT Cristino Carpenter MD POINT OF CARE TEST ORDER ABIGAIL Final Result from Last 3 Months Insurance [facility] MEDIC[facility] Care Teams Dietitian Chief Relationship Specialty Start Date End Date Caleb Elizabeth MD [address] [facility] [address] [place] [address] PCP - General Internal Medicine 04/07/18 Alma Erickson NP [address] [place] [address] Nurse Practitioner Obstetrics and Gynecology 08/17/24
--- OUTSIDE RECORDS SUMMARY | 2025-02-08 14:51 | XMS_ITS | Referral Summary ---
Author Organization [facility] Address [address] [place] [address] Care Team Providers Care Pharmaceutical Representative Name Role Phone Caleb Elizabeth MD Primary Care Provider [phone] Alma Erickson CAPITAL MARK[employer] SPECIALIST Unavailable [phone] Encounters Date Type Department Care Team Description 02/08/2025 9:00 AM CDT Office Visit [facility] Cardiology [address] [place] [phone] Cristino Carpenter MD Hypothyroidism (acquired) (Primary Dx); Lipid screening from Last 3 Months Allergies Active Allergy [...] 1 tablet (150 mcg total) by mouth numerologist before breakfast Active alendronate (FOSAMAX) 70 mg [...] Date Resolved Date Breast cancer 02/08/2025 02/08/2025 Social History Tobacco Use Types Packs/Day Years Used Date Smoking Tobacco: Never Smokeless Tobacco: Never Tobacco Cessation:Counseling Given: Not Answered Comments Unknown Sex and Gender Information Value Date Recorded Sex Assigned at Not on file Legal Sex Female 8:41 AM UND[employer]ING INTER[employer] Gender Identity Not on file Sexual Orientation [...] 02/08/2025 9:11 AM CDT Plan of Treatment Not on file Procedures [...] Final Result from Last 3 Months Insurance MEDICARE [facility] Care Teams Pharmaceutical Representative Relationship Specialty Start Date End Date Caleb Elizabeth MD [address] [place] [address] PCP - General Internal Medicine 04/07/18 Alma Erickson NP [address] [place] [address] Nurse Practitioner Obstetrics and Gynecology 08/17/24
--- OUTSIDE RECORDS SUMMARY | 2025-02-08 14:51 | XMS_ITS | Encounter Summary ---
Author Organization [facility] Address [address] [place] [address] Care Team Providers Care Manager Of Pharmacy Name Role Phone Caleb Elizabeth MD Primary Care Provider [phone] Alma Erickson BAG LINER Unavailable [phone] Reason for Referral * Cardiology (Routine) - Authorized Specialty Diagnoses / Procedures Referred By Contac t Referred To Contact Diagnoses Hypothyroidism (acquired) Lipid screening Procedures Stress Treadmill Test Cristino Carpenter MD [address] [facility] [address] [place] [phone] Phone: tel: fax: [facility] Cardiology [address] [place] [phone] Phone: tel: fax: Referral ID Status Reason Start Date Expiration Date V isits Requested Visits Authorized [id number] Authorized 02/08/2025 03/10/2026 1 1 Reason for Visit * Reason Comments New Patient Encounter Details Date Type Department Care Team (Latest Contact Info) Description 02/08/2025 9:00 AM CDT Office Visit [facility] Cardiology [address] [place] [phone] Cristino Carpenter MD [address] [address] Hypothyroidism (acquired) (Primary Dx); Lipid screening Social History Tobacco Use Types Packs/Day Years Used Date Smoking Tobacco: Never Smokeless Tobacco: Never Comments Unknown Sex and Gender Information Value Date Recorded Sex Assigned at Not on file 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 female with a history of hypothyroidism and breast cancer who is seeing me today in consultation. She is reporting symptoms of fatigue and some shortness of breath with standard exertional activities for the last 4-6 months that she was concerned about. She says she has a family history of coronary disease and a family history of atrial fibrillation in several relatives and wanted a cardiac consultation because of these concerns. She does not have any known historyof atrial fibrillation she does have occasional brief palpitations but nothing that is sustained more than about 10-30 seconds. She does not have any history of exertional chest pain orthopnea PND edema or syncope. Her 12 lead electrocardiogram in the office today as a new patient is normal. MEDICAL HISTORY No past medical history on file. Past Surgical History: Procedure Laterality Date BREAST BIOPSY Right 03/11/2021 BREAST LUMPECTOMY HYSTERECTOMY Family History Problem Relation Age of Onset Osteoporosis Mother Diabetes Father Heart attack Father Social History Tobacco Use Smoking status: Never Smokeless tobacco: Never Substance and Sexual Activity Drug use: None Sexual activity: None Alcohol Use: Not on file Current Outpatient Medications Medication alendronate (FOSAMAX) 70 mg tablet ascorbic acid (VITAMIN C) 100 mg tablet biotin 5 mg tablet calcium citrate (CALCITRATE) 950 mg (200 mg of elemental calcium) tablet gabapentin (NEURONTIN) 300 mg capsule latanoprost (XALATAN) 0.005 % ophthalmic solution levothyroxine (SYNTHROID) 150 mcg tablet magnesium gluconate 30 mg (550 mg) tablet tamoxifen (NOLVADEX) 20 mg tablet No current facility-administered medications for this visit. Allergies Allergen Reactions Codeine Nausea & Vomiting, Nausea And Vomiting and Nausea only Erythromycin Anaphylaxis and Swelling Penicillins Hives and Swelling Sulfa (Sulfonamide Antibiotics) Other (See comments) Substance with sulfonamide structure and antibacterial mechanism of action (substance) REVIEW OF SYSTEMS General ROS: negative for - chills, fatigue, fever, malaise, night sweats, weight gain or weight loss Psychological ROS: negative for - anxiety, depression, memory difficulties or sleep disturbances Ophthalmic ROS: negative for - blurry vision, decreased vision, loss of vision or scotomata ENT ROS: negative for - epistaxis, headaches, hearing change, nasal congestion, nasal discharge, sore throat, vertigo or visual changes Hematological and Lymphatic ROS: negative for - bleeding problems, blood clots, bruising, fatigue or weight loss Endocrine ROS: negative for - hot flashes, palpitations, polydipsia/polyuria or unexpected weight changes Respiratory ROS: negative for - cough, hemoptysis, orthopnea, shortness of breath, tachypnea or wheezing Cardiovascular ROS: negative for - chest pain, dyspnea on exertion, edema, irregular heartbeat, loss of consciousness, murmur, orthopnea, palpitations, paroxysmal nocturnal dyspnea, rapid heart rate or shortness of breath Gastrointestinal ROS: negative for - abdominal pain, appetite loss, blood in stools, constipation, diarrhea, gas/bloating, heartburn, hematemesis, melena or nausea/vomiting Genito-Urinary ROS: negative for - dysuria, erectile dysfunction or hematuria Musculoskeletal ROS: negative for - joint pain, muscle pain or muscular weakness Dermatological ROS: negative for dry skin, eczema, pruritus and rash LABS AND OTHER DIAGNOSTIC TESTS No results found for: WBC, HGB, HCT, MCV, PLT No lab exists for component: LABALBU No results found for: CHOL No results found for: HDL No results found for: LDLCALC No results found for: TRIG No results found for: CHOLHDL PHYSICAL EXAM Vitals BP 140/80 (BP Location: Left arm, Patient Position: Sitting) Pulse 77 Resp 16 Ht 160 cm (5' 3) Wt 86.2 kg (190 lb) SpO2 99% BMI 33.66 kg/m?? General appearance - alert, well appearing, and in no distress, oriented to person, place, and timeand acyanotic, in no respiratory distress Mental status - affect appropriate to mood Eyes - extraocular eye movements intact, sclera anicteric, no pallor Ears - external earsappear normal, hearing grossly normal bilaterally Nose - normal and patent, no erythema or discharge Mouth - mucous membranes moist, pharynx appears normal, dental hygiene good and tongue normal Neck - supple, no significant neck masses, carotids upstroke normal bilaterally, no bruits, no JVD Chest - clear to auscultation, no wheezes, rales or rhonchi, symmetric air entry, no tachypnea, retractions or cyanosis Heart - normal rate, regular rhythm, normal S1, S2, no murmurs, rubs, clicks or gallops, no JVD Abdomen - soft, nontender, nondistended, no masses or organomegaly bowel sounds normal Neurological - alert, oriented, normal speech, no focal findings or movement disorder noted Musculoskeletal - no joint tenderness, deformity or swelling, no muscular tenderness noted Extremities - peripheral pulses normal, no pedal edema, no clubbing or cyanosis Skin - normal coloration and turgor, no rashes, no suspicious skin lesions noted ASSESSMENT Shortness of breath PLAN/RECOMMENDATIONS Will arrange for exercise stress test in the [place] office. The patient is primarily concerned that these symptoms are not an ischemic equivalent. Her resting ECG is normal so she does not requirenuclear or stress echo. Further follow-up will be determined based on stress test findings She has no evidence of atrial fibrillation and I do not believe arrhythmia evaluation is necessary or indicated at this time Cristino Carpenter MD documented in this encounter Plan of Treatment Scheduled Orders Name Type Priority Associated Diagnoses Orde r Schedule Stress Treadmill Test Cardiac Services Routine Hypothyroidism (acquired) Lipid screening Expected: 02/08/2025, Expires: 02/08/2026 documented as of this encounter Procedures Procedure Name Priority Date/Time Associated Diagnosis Comments ELECTROCARDIOGRAM REPORT Routine 025 9:33 AM CDT Hypothyroidism (acquired) POCT LIPID PANEL Routine 02/08/2025 9:19 AM CDT Lipid screening documented in this encounter Results * Electrocardiogram Report (02/08/2025 9:33 AM [...] OF CARE TEST ORDER ABIGAIL Final Result documented in this encounter Visit Diagnoses Diagnosis Hypothyroidism (acquired)- Primary Unspecified hypothyroidism Lipid screening Screening for lipoid disorders documented in this encounter Discontinued Medications Medication Sig Discontinue Reason Start Date End Da te pramipexole (MIRAPEX) 0.25 mg tablet No longer taking - Do not display on AVS 10/04/2024 02/08/2025 documented as of this encounter Historical Medications * This list may reflect changes made after this encounter. magnesium gluconate 30 mg (550 mg) tablet biotin 5 mg tablet gabapentin (NEURONTIN) 300 mg capsule Take 1 capsule (300 mg total) by mouth 01/23/2025 added in this encounter Care Teams Manager Of Pharmacy Relationship Specialty Start Date End Date Caleb Elizabeth MD [address] [place] [address] PCP - General Internal Medicine 04/07/18 Alma Erickson NP [address] [place] [address] Nurse Practitioner Obstetrics and Gynecology 08/17/24 documented as of this encounter
== END 2025-02-08 14:07 | disposition home or self-care (01) ==
PROVIDERS: PCP Internal Medicine; Visit Provider Internal Medicine
DX: R19.09 Other intra-abdominal and pelvic swelling, mass and lump (principal); K76.0 Fatty (change of) liver, not elsewhere classified
CPT/HCPCS: 74177; Q9967

== ENCOUNTER 2025-03-13 11:00 | Outpatient (RCR) | payer MEDICARE, SELFPAY ==
[2021-05-06 10:07] VITALS: BP 125/67; PULSE 78; RESP 14; TEMP 36.7; O2SAT 97
--- NOTE | 2021-05-06 10:22 | P.CONRAD_ITS ---
Recommendations I discussed with her the management options for her non-invasive breast cancer and the role of radiation therapy, including the option of mastectomy with rare need for postoperative radiation, lumpectomy followed by breast radiation, or lumpectomy followed by observation or anti-estrogen therapy alone. I also provided her with written information about radiation for breast cancer. I explained that even after lumpectomy with negative surgical margins, up to 1/3 of women will experience ipsilateral breast cancer recurrence with surgery alone , and that half of these recurrences will be invasive. Adjuvant breast radiation reduces ipsilateral breast cancer recurrence by 50-70%; although, there is no clear impact on overall survival. I described the typical course of adjuvant whole breast radiation following lumpectomy, delivered daily M-F over 6-7 weeks, depending on the surgical margins. I described the simulation procedure, treatment technique, expected outcome, possible acute side effects, and potential long-term risks of breast radiation. Specifically, the acute side effects may include not limited to fatigue, localized skin redness/dryness/tanning, dry with/without moist desquamation, breast/chestwall discomfort. ?Subacutely, there is a small risk (<?1%) of symptomatic radiation pneumonitis that could require treatment with?steroids. ?Long-term risks include, among other things, persistent pigmentary changes, telangiectasias, skin or soft tissue fibrosis?(which could be tender),?breast swelling, breast shrinkage,?rib fracture (although rare even in elderly osteoporotic women), lung scarring (which is generally asymptomatic), heart disease, and rare secondary malignancies (although elevated risk in smokers). I discussed the potential use of hypofractionated whole breast radiation, delivered daily M-F over approximately 4 weeks. The 10-year [place] trial results showed local control rates comparable to standard fractionated whole breast radiation ([facility] 362(6):513-520, 2010). The cosmetic outcome was also similar. However, the women included on this trial and others were at least 50 years of age and had T1 or small T2 invasive cancers and not pure DCIS, no heart within the tangential breast oswald, and small/medium breast size. Clinically, she is a candidate for hypofractionation. Accelerated partial breast radiation (APBI), typically delivered in 10 treatments twice daily over 5 days with an interfraction interval of at least 6 hours, may also be used to treat select low-risk patients with early stage and in situ breast cancer. However, due to the large extent of DCIS (at least 2.5 cm with close margin), partial breast radiation was not recommended. Some clinical trials of low risk DCIS patients, generally defined as < 2.5 cm G1-2 and widely negative margins of at least 3 mm, have reported a lower risk of ipsilateral breast tumor recurrence than the original randomized trials. For example, the ECOG 5194 (median age 60 yr and median DCIS size 5-6 mm) reported 5-yr IBTR rate of only 6.1%. However, many recurrences in these low risk DCIS patients would be expected to occur beyond 5 years and much longer follow-up is needed. The RTOG 9804 (636 patients (goal 1790) with < 2.5 cm G1-2 DCIS, (- )margins by > 3 mm required, median age 59 yr, and surgical margins > 1 cm in 2/3 of patients) phase 3 trial comparing breast radiation to observation with tamoxifen being optional (~ 2/3 received it). The 7-year IBTR rate was 0.9% after radiation versus 6.4% in the observation arm. In 2013, the [facility] updated the results of a phase II prospective trial of 158 patient with < 2.5 cm G1-2 DCIS who underwent wide excision alone (without radiation or tamoxifen) from 0526-4094, with negative margins by at least 1 cm. The median patient age was 51. Patients were followed for a minimum of 8 years, with a median f/u time of 11 years. The 10-year estimated cumulative local recurrence incidence was 15.6%, with the estimated annual percentage rate of local recurrence of 1.9% per patient-year (as reported in 2005, the trial was st opped early due to an unacceptably high 5 year LR rate of 12% with a 2.4% failure rate per year). It was concluded that ?with longer follow-up, there remains a substantial and ongoing risk of LR in patients with favorable DCIS treated with wide excision margins without radiation?. (NEGRO Liu et al. Breast Cancer Res Treat, 2014 Sep;143(2):343-50; NEGRO Liu et al. J Clin Oncol. 2005Nov 04;24(7):1031-6. Epub 2005Oct 12). She expressed good understanding of the issues discussed, and her questions were addressed. Her surgeon has recommended reexcision and she has a follow-up appointment with him next week. She is interested in proceeding with hypofractionated whole breast radiation. She will return for a CT simulation procedure for radiation treatment planning after she recovers from surgery. Thank you for asking me to assist in the care of your patient. If any further questions or concerns should arise, please do not hesitate to contact me. Time Spent Approximately 70 minutes total time was spent on the patient's consultation today including reviewing her medical records and imaging studies in preparation for the consultation, time spent with the patient including counseling of the patient on treatment recommendations, documentation, and coordination of care. More than half the time was spent discussing treatment options and potential risks and benefits. Impression Christelle Maria is a 65 year old female who underwent an excisional biopsy for mammographically occult pathologic stage 0is (Tis Nx Mx) ER/WI(+) 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 Margin reexcision is planned. PMF - Date/Time Seen 05/06/21 10:22 - Identifying Data DIAGNOSIS Breast Cancer, RIGHT 9:00/lateral, pTis Nx, ER(+) Clinical Stage 0is (Tis Nx Mx) Date of Diagnosis: 03/11/2021 Genetic Testing: none Path: 25 mm G1 DCIS, no necrosis, (-)mar(1 mm posterior), (+)ADH Prognostic Factors: ER/WI(+)100% Surgeon(s): Dr Zack Casanova ([facility]) Surgery: RT Excisional Biopsy (04/14/2021) Med Onc: Chemo: none Rad Onc: Rita Radiation: Antiestrogen Therapy: IDENTIFICATION Christelle Maria is a 65 year old female who underwent an excisional biopsy for mammographically occult pathologic stage 0is (Tis Nx Mx) ER/WI(+) 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 She is seen in consultation today at the request of Dr Dr Zack Casanova for a radiation oncology opinion. She is by herself today. - History of Present Illness Presentation / Summary Bilateral screening mammogram in January 2021 was unremarkable. Right breast ultrasound in February as a 6-month follow-up of two right breast masses demonstrated interval increase in size of a 6.2 mm mass at 9:00 located 7 cm from the nipple, prompting further evaluation. She had no preceding breast symptomatology. No prior breast biopsies. Ultrasound-guided core biopsy demonstrated atypical ductal hyperplasia. Excisional biopsy was performed on 04/14/2021. She is recovering well from surgery and denies pain. She has an appointment with medical oncology later today. Her surgeon has recommended reexcision and she sees him in follow-up next week. Oncology Summary Breast Cancer, RIGHT 9:00/lateral, pTis Nx, ER(+) 01/13/2021 Bilat Screen 3D MG: Heterogeneously dense. No suspicious mass, microcalcification, or architectural distortion in either breast. 02/12/2021 RT Breast US: At 9:00, 6 cm from the nipple is a stable 2 x 4 mm circumscribed hypoechoic lesion consistent with benign process. At 9:00, 7 cm from the nipple is a 3.5 x 6.2 mm circumscribed solid mass which is increased in size compared to 05/2019. 03/11/2020 RT Breast Core Bx, [facility]: Biopsy marker in expected position at 9:00 Path: atypical ductal hyperplasia associated with calcifications 04/14/2021 RT Lumpectomy (Dr Zack Casanova), [facility] Specimen X-Ray: Localization wire and adjacent biopsy marker within lumpectomy specimen Path: 25 mm G1 DCIS, no necrosis, (-)mar(1 mm posterior), ER/WI(+)100% OncotypeDCIS / DCISionRT not performed Cancer Screening Last Bilateral Mammogram: 01/13/2021 Last PAP Test: 2 years ago. FIELD IDENTIFICATION SPECIALIST appointment scheduled 05/2021. Last Colonoscopy: 2018. H/o adenomatous polyps. F/U in 5 years was recommended. Due in 2023. 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 Menarche: age 13 Menopause: age 39 OCP: Remote history, < 5 yrs HRT: Remote history, < 5 yrs S/p hysterectomy Implanted Cardiac Devices Pacemaker: none Defibrillator: none Loop Recorder: none Relevant Social/Medical History Single. Lives in [place], [place]. Retired last year from [employer]. Exercise: Walks 3-4 miles daily Prior Radiation: none Tobacco: no history of smoking Inflammatory Bowel Disease: none Collagen Vascular Disorders: (Lupus, Scleroderma, RA): none (sister has lupus) - Medical History Medical History (Last Reviewed 05/06/21 @ 12:38 by Jennifer Mariano Mai, MD) Hypothyroidism - Surgical History Surgical History (Last Updated 05/06/21 @ 13:08 by Jennifer Mariano Mai, MD) H/O repair of right rotator cuff H/O: hysterectomy History of appendectomy Status post right breast lumpectomy 04/14/2021, 2.5 cm G1 DCIS - Family History Family History (Last Reviewed 05/06/21 @ 11:10 by Jennifer Mariano Mai, MD) Sibling Family history of lupus erythematosus Father Prostate carcinoma Melanoma Other Gastric cancer Maternal Uncle Other Breast cancer Paternal Aunts x 2 - Social History Social History (Last Reviewed 05/06/21 @ 11:10 by Jennifer Mariano Mai, MD) Alcohol Use: Alcohol intake: never Others: Spiritual care concerns: No Smoking Status: Smoking status: Never smoker Second hand tobacco smoke exposure: No - Allergies Allergies Allergy/AdvReac Type Severity Reaction Status Date / Time codeine Allergy Mild Vomiting Verified 02/28/21 13:21 erythromycin base Allergy Mild Hives Verified 02/28/21 13:21 Penicillins Allergy Mild Hives Verified 02/28/21 13:21 Review of Systems - Review of Systems GENERAL: No unexplained weight loss, loss of appetite, energy loss/fatigue, fevers or chills, night sweats. HEENT: No sore throat, neck swelling, pain or difficulty swallowing. No changes in voice, taste, vision, or hearing. RESPIRATORY: No shortness of breath, cough, wheezing, or hemoptysis. CARDIOVASCULAR: No chest pain, palpitations, or history of heart disease. ENDOCRINE: (+)hypothyroidism. No diabetes mellitus. GASTROINTESTINAL: No gastroesophageal reflux disease. No diarrhea, rectal bleeding, constipation. No nausea, vomiting, or abdominal pain. URINARY: No dysuria, hematuria, or incontinence. MUSCULOSKELETAL: No new focal bony aches or pain. PHYSCHOLOGICAL: No anxiety or depression. No poor sleep DERMATOLOGICAL: No skin rashes or lesions BREASTS: (+)Breast cancer per HPI NEUROLOGIC: No headaches or confusion. No focal motor weakness, numbness, paresthesias, ataxia. No seizure disorder. Pain Assessment / Management Pain Assessment: 0/10 (no pain) Pain Management: no pain (no intervention needed) Performance Status ECOG Performance Score: 0 (fully active, able to carry on all pre-disease performance without restriction) Exam - General A pleasant well-nourished well-developed woman resting comfortably in the exam room, in no acute distress. HEENT: Normocephalic, atraumatic. Extraocular muscles intact. Pupils equal, round, and reactive. Sclerae anicteric and conjunctivae clear. Face symmetrical. NECK: Supple without thyromegaly or masses. LYMPHATICS: No cervical, supraclavicular, infraclavicular, or axillary adenopathy. LUNGS: Clear to auscultation bilaterally. No wheezes, rhonchi or rales. HEART: Regular rate and rhythm. No murmurs, rubs, or gallops. MUSCULOSKELETAL: No tenderness over the axial or appendicular skeleton. EXTREMITIES: No upper extremity lymphedema. Good range of motion of both upper extremities. No clubbing or cyanosis. ABDOMEN: Soft, nontender, nondistended, without hepatosplenomegaly or masses. No rebound or guarding. BREASTS: Well-healed lumpectomy incision in the lateral right breast with moderate (4 x 4 cm) underlying seroma and no significant breast edema. No suspicious masses, erythema, edema, or peau d'orange changes. Negative contralateral left breast exam. AXILLA: No adenopathy. NEUROLOGIC: Alert and oriented. Normal affect and mood. Speech is fluent and comprehension is intact. Moves all 4 extremities well. Gait steady. - Vital Signs Vital Signs - 24 hr 05/06/21 10:07 Temperature 36.7 C Pulse Rate 78 Respiratory Rate 14 Blood Pressure 125/67 Pulse Oximetry 97 - Radiologic Data 02/12/2021 RT Breast US: At 9:00, 6 cm from the nipple is a stable 2 x 4 mm circumscribed hypoechoic lesion consistent with benign process. At 9:00, 7 cm from the nipple is a 3.5 x 6.2 mm circumscribed solid mass which is increased in size compared to 05/2019. 01/13/2021 Bilat Screen 3D MG: Heterogeneously dense. No suspicious mass, microcalcification, or architectural distortion in either breast. - Pathologic Data Right Breast Surgery: 04/14/2021 25 mm G1 DCIS, no necrosis, (-)mar(1 mm posterior) ER/WI(+)100% Right Breast Core Biopsy: 02/12/2021 Atypical ductal hyperplasia associated with calcifications
[2021-05-06 10:25] VITALS: BMI 30.8
[2021-05-20 12:20] VITALS: BP 138/72; PULSE 76; RESP 20; TEMP 36.8; O2SAT 98
--- NOTE | 2021-05-20 13:08 | P.RADPN_ITS ---
Assessment/Plan - Assessment Christelle Maria is a 65 year old female who underwent an excisional biopsy for mammographically occult pathologic stage 0is (Tis Nx Mx) ER/[place](+) 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 - Plan Hypofractionated whole breast radiation over 4 weeks is planned. Potential acute and late toxicity was reviewed again today. Questions addressed. Radiation treatment consent signed. Proceed with CT simulation for radiation treatment planning. Block check simulation to start RT in approximately 1 week. Planning to start endocrine therapy after RT completion. Follow Up Note - Date/Time 05/20/21 13:08 - Identifying Data DIAGNOSIS Breast Cancer, RIGHT 9:00/lateral, pTis Nx, ER(+) Clinical Stage 0is (Tis Nx Mx) Date of Diagnosis: 03/11/2021 Genetic Testing: none Path: 25 mm G1 DCIS, no necrosis, (-)mar(1 mm posterior), (+)ADH Prognostic Factors: ER/[place](+)100% Surgeon(s): Dr Zack Casanova ([facility]) Surgery: RT Excisional Biopsy (04/14/2021) Med Onc: Rachell Chemo: none Rad Onc: Rita Radiation: Antiestrogen Therapy: planned after RT IDENTIFICATION Christelle Maria is a 65 year old female who underwent an excisional biopsy for mammographically occult pathologic stage 0is (Tis Nx Mx) ER/[place](+) 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 She was recently seen in consultation at the request of Dr Dr Zack Casanova for a radiation oncology opinion and returns today for radiation treatment planning. She is by herself today. - Interval History Interval History She has recovered well from surgery and denies pain. Has seen medical oncology, Dr Lovett, and endocrine therapy after RT completion is planned. Presentation / Summary Bilateral screening mammogram in January 2021 was unremarkable. Right breast ultrasound in February as a 6-month follow-up of two right breast masses demonstrated interval increase in size of a 6.2 mm mass at 9:00 located 7 cm from the nipple, prompting further evaluation. She had no preceding breast symptomatology. No prior breast biopsies. Ultrasound-guided core biopsy demonstrated atypical ductal hyperplasia. Excisional biopsy was performed on 04/14/2021: no invasive cancer and margins negative by at least 1 mm. Saw her surgeon in follow-up and no margin reexcision was recommended. Oncology Summary Breast Cancer, RIGHT 9:00/lateral, pTis Nx, ER(+) 01/13/2021 Bilat Screen 3D MG: Heterogeneously dense. No suspicious mass, microcalcification, or architectural distortion in either breast. 02/12/2021 RT Breast US: At 9:00, 6 cm from the nipple is a stable 2 x 4 mm circumscribed hypoechoic lesion consistent with benign process. At 9:00, 7 cm from the nipple is a 3.5 x 6.2 mm circumscribed solid mass which is increased in size compared to 05/2019. 03/11/2020 RT Breast Core Bx, [facility]: Biopsy marker in expected position at 9:00 Path: atypical ductal hyperplasia associated with calcifications 04/14/2021 RT Lumpectomy (Dr Zack Casanova), [facility] Specimen X-Ray: Localization wire and adjacent biopsy marker within lumpectomy specimen Path: 25 mm G1 DCIS, no necrosis, (-)mar(1 mm posterior), ER/[place](+)100% OncotypeDCIS / DCISionRT not performed Cancer Screening Last Bilateral Mammogram: 01/13/2021 Last PAP Test: 2 years ago. 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 Last Colonoscopy: 2018. H/o adenomatous polyps. F/U in 5 years was recommended. Due in 2023. 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 Menarche: age 13 Menopause: age 39 OCP: Remote history, < 5 yrs HRT: Remote history, < 5 yrs S/p hysterectomy Relevant Social/Medical History Single. Lives in [place], [place]. Retired last year from [employer]. Exercise: Walks 3-4 miles daily Prior Radiation: none Implanted Cardiac Devices: none Tobacco: no history of smoking Inflammatory Bowel Disease: none Collagen Vascular Disorders: (Lupus, Scleroderma, RA): none (sister has lupus) H&P - Exam - General Exam General: A pleasant well-nourished well-developed woman resting comfortably in the exam room, in no acute distress. Extremities: No upper extremity lymphedema. Good range of motion of both upper extremities. Breasts: Well-healed lumpectomy incision in the lateral right breast with slight retraction, moderate (4 x 3 cm) underlying seroma, and no significant breast edema. No erythema, edema, or peau d'orange changes. Pain Assessment / Management Pain Assessment: 0/10 (no pain) Pain Management: no pain (no intervention needed) Performance Status ECOG Performance Score: 0 (fully active, able to carry on all pre-disease performance without restriction) - Vital Signs Vital Signs - 24 hr 05/20/21 12:20 Temperature 36.8 C Pulse Rate 76 Respiratory Rate 20 Blood Pressure 138/72 Pulse Oximetry 98
--- NOTE | 2021-05-20 13:38 | P.RADTP_ITS ---
Radiation Treatment Plan - Date/Time Date/Time: 05/20/21 13:38 - Diagnosis Diagnosis: Christelle Maria is a 65 year old female who underwent an excisional biopsy for mammographically occult pathologic stage 0is (Tis Nx Mx) ER/[place](+) 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 - Summary Summary: RADIATION ONCOLOGY CLINICAL TREATMENT PLAN PROCEDURE DATE:? 05/20/2021 TREATMENT INTENT: Cure, Local control SPECIAL TEST(S) INTERPRETED FOR TUMOR DELINEATION: None CHEMOTHERAPY CONSIDERATIONS: None PROTOCOL ENROLLMENT/BEING CONSIDERED: None TREATMENT SITE(S): Right Breast NUMBER OF AREAS OR COTO: 1 treatment area(s) NUMBER OF TREATMENT PORTS: Tangential ports with wedges, multiple MLC segments, and/or DMLC for dose modulation IMMOBILIZATION: Alpha-cradle TREATMENT DEVICES: Custom blocks of complex design. TREATMENT MODALITY: External photon beam PLANNED DOSE: 4256 cGy in 16 fractions of 266 cGy to RIGHT breast Breast boost of 1000 cGy in 4 fractions of 250 cGy to approximately 5256 cGy total cumulative dose FRACTIONATION: QD TECHNIQUE CONTEMPLATED: 3D-BRAKE REPAIRER AIR MEDICAL NECESSITY FOR 3D TREATMENT PLANNING: The parameters of volume of interest can only be defined by PET, MRI, or CT. The target volume is in close proximity to a critical normal tissue that must be protected. Normal tissue dose constraints: RIGHT Lung V20 < 15%, RIGHT Brachial Plexus < 20 Gy, Breast Dmax < 107% of prescription dose, Minimize heart dose (Dmax < 500 cGy)
--- NOTE | 2021-05-20 13:43 | WPDRADIATPRO ---
Radiation Procedure Note - Date/Time Date/Time: 05/20/21 13:43 - Diagnosis Diagnosis: Christelle Maria is a 65 year old female who underwent an excisional biopsy for mammographically occult pathologic stage 0is (Tis Nx Mx) ER/[place](+) 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 - Summary Summary: RADIATION ONCOLOGY INITIAL CT SIMULATION PROCEDURE PROCEDURE DATE:? 05/20/2021 PURPOSE: The patient is undergoing a virtual CT simulation for external beam radiation treatment planning. TREATMENT SITE(S): Right Breast NUMBER OF AREAS OR COTO: 1 treatment area(s) EQUIPMENT USED: Simulation was performed on the radiation department's dedicated CT simulator IMMOBILIZATION: Alpha-cradle CONTRAST MEDIA: None EXTERNAL MARKERS: A radio-opaque catheter was placed on the surgical scar within the treatment area TATTOOS: Positioning tattoos were applied to the patient's skin. NUMBER OF TREATMENT PORTS: Tangential ports with wedges, multiple MLC segments, and/or DMLC for dose modulation BLOCKING: Custom blocks of complex design will be designed to cover the target volume within the treatment field(s) ISODOSE PLAN: An isodose plan will be performed to establish the dose distribution within the treatment volume SCHEDULING Prior to delivering the first radiation fraction, a confirmatory simulation will be performed on the linear accelerator to verify the isocenter location and block design IMAGING QA: Weekly electronic portal imaging will be obtained
--- NOTE | 2021-05-27 14:30 | P.RAD.PCN_ITS ---
Radiation Procedure Note - Date/Time Date/Time: 05/27/21 14:30 - Diagnosis Diagnosis: Christelle Maria is a 65 year old female who underwent an excisional biopsy for mammographically occult pathologic stage 0is (Tis Nx Mx) ER/[place](+) 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 She is ready to start whole breast radiation. - Summary Summary: BLOCK CHECK SIMULATION (INITIAL COTO) PROCEDURE DATE: 05/27/2021 PURPOSE: The patient initially underwent virtual CT simulation. A simple simulation was performed on the linear accelerator utilizing electronic portal imaging for isocenter verification and as a block check to confirm that the MLC shape is correct. TREATMENT SITE(S): Right Breast EQUIPMENT USED: Simulation was performed on the linear accelerator. PROCEDURE DETAILS: This simulation was performed prior to the first radiation fraction. The patient was positioned on the linear accelerator treatment couch in treatment position. The graticule was placed in the block tray. A double-exposure EPI of each treatment field was obtained and reviewed in conjunction with the cor responding digitally reconstructed radiograph (DRR). The accuracy of the patient alignment, isocenter positioning, and MLC design was assessed. PORTAL ARRANGEMENT: Coplanar Medial/Lateral Breast Tangential Ports ASSESSMENT: The shape of the field(s) was determined to precisely match the DRR, and the isocenter was in alignment with the treatment plan. ORDERS: Proceed with the treatment blocks as planned.
[2021-06-02 10:19] VITALS: BP 125/60; PULSE 78; RESP 20; TEMP 37; O2SAT 99
--- NOTE | 2021-06-02 10:26 | P.RADONC_ITS ---
Assessment and Plan - Additional Plan Continue radiation therapy as planned. Tolerating treatment well. Port films checked. Instructed on proper skin care -- recommended she start moisturizing skin 2x/day. Reviewed sun precautions for the treated area. On Treatment Visit - Date/Time of Treatment Date/Time: 06/02/21 10:26 Identifying data: DIAGNOSIS Breast Cancer, RIGHT 9:00/lateral, pTis Nx, ER(+) Clinical Stage 0is (Tis Nx Mx) Date of Diagnosis: 03/11/2021 Genetic Testing: none Path: 25 mm G1 DCIS, no necrosis, (-)mar(1 mm posterior), (+)ADH Prognostic Factors: ER/[place](+)100% Surgeon(s): Dr Zack Casanova ([facility]) Surgery: RT Lumpectomy (04/14/2021) Med Onc: Rachell Chemo: none Rad Onc: Rita Radiation: 05/28 - ; RIGHT whole breast hypofractionation Antiestrogen Therapy: planned after RT IDENTIFICATION Christelle Maria is a 65 year old female who underwent an excisional biopsy for mammographically occult pathologic stage 0is (Tis Nx Mx) ER/[place](+) 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 She is now undergoing hypofractionated whole breast radiation. Site: RIGHT Breast Dose: Right Breast at 1064 cGy of 4256 cGy Breast Boost at 0 cGy of 1000 cGy Fraction: 4 of 20 History: Good energy. No breast/skin complaints. Applying Aquaphor 1 time daily. No other concerns. H&P - Exam - General General: Appears well. No acute distress. Breast: No radiation dermatitis. No miliaria. Skin intact. Well-healed lumpectomy incision in the lateral right breast with slight retraction, moderate (4 x 3 cm) underlying seroma, and no significant breast edema. Pain Assessment: 0/10 (no pain) Pain Management: no pain (no intervention needed) - Vital Signs Vital Signs - 24 hr 06/02/21 10:19 Temperature 37.0 C Pulse Rate 78 Respiratory Rate 20 Blood Pressure 125/60 Pulse Oximetry 99
[2021-06-10 09:35] VITALS: BP 124/58; PULSE 60; RESP 20; TEMP 36.5; O2SAT 99
--- NOTE | 2021-06-10 09:44 | P.RADONC_ITS ---
Assessment and Plan - Additional Plan Continue radiation therapy as planned. Tolerating treatment well. Port films checked. Continue current skin care regimen. Continue sun precautions for the treated area. On Treatment Visit - Date/Time of Treatment Date/Time: 06/10/21 09:44 Identifying data: DIAGNOSIS Breast Cancer, RIGHT 9:00/lateral, pTis Nx, ER(+) Clinical Stage 0is (Tis Nx Mx) Date of Diagnosis: 03/11/2021 Genetic Testing: none Path: 25 mm G1 DCIS, no necrosis, (-)mar(1 mm posterior), (+)ADH Prognostic Factors: ER/[place](+)100% Surgeon(s): Dr Zack Casanova ([facility]) Surgery: RT Lumpectomy (04/14/2021) Med Onc: Rachell Chemo: none Rad Onc: Rita Radiation: 05/28 - ; RIGHT whole breast hypofractionation Antiestrogen Therapy: planned after RT IDENTIFICATION Christelle Maria is a 65 year old female who underwent an excisional biopsy for mammographically occult pathologic stage 0is (Tis Nx Mx) ER/[place](+) 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 She is now undergoing hypofractionated whole breast radiation. Site: RIGHT Breast Dose: Right Breast at 2394 cGy of 4256 cGy Breast Boost at 0 cGy of 1000 cGy Fraction: of 20 History: Mild fatigue. No breast/skin complaints. Applying Aquaphor 2 times daily. No other concerns. H&P - Exam - General General: Appears well. No acute distress. Breast: No radiation dermatitis. No miliaria. Skin intact. Well-healed lumpectomy incision in the lateral right breast with slight retraction, moderate (4 x 3 cm) underlying seroma, and no significant breast edema. Pain Assessment: 0/10 (no pain) Pain Management: no pain (no intervention needed) - Vital Signs Vital Signs - 24 hr 06/10/21 09:35 Temperature 36.5 C Pulse Rate 60 Respiratory Rate 20 Blood Pressure 124/58 L Pulse Oximetry 99
[2021-06-17 09:55] VITALS: BP 128/76; PULSE 74; RESP 20; TEMP 37.3; O2SAT 99
--- NOTE | 2021-06-17 10:05 | WPDRADONCOTV ---
Assessment and Plan - Additional Plan Continue radiation therapy as planned. Tolerating treatment well. Port films checked. Lumpectomy bed boost starts on Wednesday. Discussed with Ms Maria. Continue current skin care regimen. Continue sun precautions for the treated area. On Treatment Visit - Date/Time of Treatment Date/Time: 06/17/21 10:05 Identifying data: Diagnosis: Breast Cancer, RIGHT 9:00/lateral, pTis Nx, ER(+) Clinical Stage 0is (Tis Nx Mx) Date of Diagnosis: 03/11/2021 Genetic Testing: none Path: 25 mm G1 DCIS, no necrosis, (-)mar(1 mm posterior), (+)ADH Prognostic Factors: ER/[place](+)100% Surgeon(s): Dr Zack Casanova ([facility]) Surgery: RT Lumpectomy (04/14/2021) Med Onc: Rachell Chemo: none Rad Onc: Rita Radiation: 05/28 - ; RIGHT whole breast hypofractionation Antiestrogen Therapy: planned after RT Identification: Christelle Maria is a 65 year old female who underwent an excisional biopsy for mammographically occult pathologic stage 0is (Tis Nx Mx) ER/[place](+) 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 She is now undergoing hypofractionated whole breast radiation. Site: RIGHT Breast Dose: Right Breast at 3724 cGy of 4256 cGy Breast Boost at 0 cGy of 1000 cGy Fraction: 14 of 20 History: Mild fatigue. No breast/skin complaints. Applying Aquaphor 2 times daily. No other concerns. H&P - Exam - General General: Appears well. No acute distress. Breast: Faint erythema. No miliaria. Skin intact. Well-healed lumpectomy incision in the lateral right breast with slight retraction, moderate (4 x 3 cm) underlying seroma, and no significant breast edema. Pain Assessment: 0/10 (no pain) Pain Management: no pain (no intervention needed) - Vital Signs Vital Signs - 24 hr 06/17/21 09:55 Temperature 37.3 C Pulse Rate 74 Respiratory Rate 20 Blood Pressure 128/76 Pulse Oximetry 99
--- NOTE | 2021-06-17 23:26 | P.RAD.PCN_ITS ---
Radiation Procedure Note - Date/Time Date/Time: 06/17/21 23:26 - Diagnosis Diagnosis: Christelle Maria is a 65 year old female who underwent an excisional biopsy for mammographically occult pathologic stage 0is (Tis Nx Mx) ER/[place](+) 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 She is now undergoing hypofractionated whole breast radiation. - Summary Summary: RADIATION ONCOLOGY VIRTUAL BREAST BOOST SIMULATION PROCEDURE DATE: 06/17/2021 PURPOSE: This is a virtual simulation to continue the treatment planning and block fabrication after reaching the planned dose to the initial treatment oswald. TREATMENT SITE: Lumpectomy Bed PROCEDURE: The original CT dataset was re-accessed using the [employer] computer-aided treatment planning software. I utilized this CT dataset to design cone-down boost oswald to continue to treat the lumpectomy bed while protecting the adjacent breast tissue and nearby critical normal structures including the lung and heart. This resulted in custom conformal blocks. Subsequently, DRRs were constructed showing the relationship of the treatment oswald to the tumor volume and adjacent critical normal structures. I determined the optimal beam arrangement to consist of a wedged 3 field beam arrangement. ISODOSE PLAN: Isodose plan will be performed to deliver a specified dose to the treatment volume and to confirm adequate protection of nearby critical normal tissues. SCHEDULING Prior to beginning the cone down boost portion of treatment, a simulation will be performed either on the conventional simulator using fluoroscopy or on the linear accelerator utilizing electronic portal imaging to verify the isocenter location and block design.
--- NOTE | 2021-06-19 11:11 | WPDRADIATPRO ---
Radiation Procedure Note - Date/Time Date/Time: 06/19/21 11:11 - Summary Summary: VERIFICATION SIMULATION (BOOST COTO) PURPOSE: The patient initially underwent virtual CT simulation. A simple simulation was performed on the linear accelerator utilizing electronic portal imaging for isocenter verification and as a block check to confirm that the MLC shape is correct. TREATMENT SITE(S): Breast boost volume EQUIPMENT USED: Simulation was performed on the linear accelerator. PROCEDURE DETAILS: This simulation was performed prior to the first radiation fraction. The patient was positioned on the linear accelerator treatment couch in treatment position. The graticule was placed in the block tray. A double-exposure EPI of each treatment field was obtained and reviewed in conjunction with the corresponding digitally reconstructed radiograph (DRR). The accuracy of the patient alignment, isocenter positioning, and MLC design was assessed. PORTAL ARRANGEMENT: 3-field, 3D-conformal ASSESSMENT: The shape field(s) was determined to precisely match the DRR, and the isocenter was in alignment with the treatment plan. ORDERS: Proceed with the boost treatment blocks as planned.
[2021-06-24 09:27] VITALS: BP 128/68; PULSE 72; RESP 20; TEMP 36.6; O2SAT 100
--- NOTE | 2021-06-24 09:36 | P.RADONC_ITS ---
Assessment and Plan - Additional Plan Continue radiation therapy as planned. Tolerating treatment well. Port films checked. Finishes treatment in 1 day. Continue current skin care regimen until the skin is no longer red/pink, dry, or itchy. Return for follow-up visit in 6 weeks; however, I cautioned her that with hypofractionated breast RT, often the skin reaction peaks ~ 1 week after completing RT and she should call with any skin concerns. Continue sun precautions for the treated area. I discussed the timing and symptoms of radiation pneumonitis, a rare subacute toxicity following breast radiation. She was encouraged call with any questions or concerns. On Treatment Visit - Date/Time of Treatment Date/Time: 06/24/21 09:36 Identifying data: Diagnosis: Breast Cancer, RIGHT 9:00/lateral, pTis Nx, ER(+) Clinical Stage 0is (Tis Nx Mx) Date of Diagnosis: 03/11/2021 Genetic Testing: none Path: 25 mm G1 DCIS, no necrosis, (-)mar(1 mm posterior), (+)ADH Prognostic Factors: ER/[place](+)100% Surgeon(s): Dr Zack Casanova ([facility]) Surgery: RT Lumpectomy (04/14/2021) Med Onc: Rachell Chemo: none Rad Onc: Rita Radiation: 05/28 - ; RIGHT whole breast hypofractionation Antiestrogen Therapy: planned after RT Identification: Christelle Maria is a 65 year old female who underwent an excisional biopsy for mammographically occult pathologic stage 0is (Tis Nx Mx) ER/[place](+) 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 She is now undergoing hypofractionated whole breast radiation. Site: RIGHT Breast Dose: Right Breast at 4256 cGy of 4256 cGy Breast Boost at 750 cGy of 1000 cGy Fraction: History: Mild fatigue. No breast/skin complaints. Applying Aquaphor 2 times daily. No other concerns. H&P - Exam - General General: Appears well. No acute distress. Breast: Faint erythema. No miliaria. Skin intact. Well-healed lumpectomy incision in the lateral right breast with slight retraction, moderate (4 x 3 cm) underlying seroma, and no significant breast edema. Pain Assessment: 0/10 (no pain) Pain Management: no pain (no intervention needed) - Vital Signs Vital Signs - 24 hr 06/24/21 09:27 Temperature 36.6 C Pulse Rate 72 Respiratory Rate 20 Blood Pressure 128/68 Pulse Oximetry 100
--- NOTE | 2021-07-07 12:02 | WPDRADIATTXS ---
Radiation Treatment Summary - Date/Time Date/Time: 07/07/2021 12:04 pm Diagnosis Breast Cancer, RIGHT 9:00/lateral, pTis Nx, ER(+) Clinical Stage 0is (Tis Nx Mx) Date of Diagnosis: 03/11/2021 Genetic Testing: none Path: 25 mm G1 DCIS, no necrosis, (-)mar(1 mm posterior), (+)ADH Prognostic Factors: ER/[place](+)100% Surgeon(s): Dr Zack Casanova ([facility]) Surgery: RT Lumpectomy (04/14/2021) Med Onc: Rachell Chemo: none Rad Onc: Rita Radiation: 05/28 - 06/25/2021; RIGHT whole breast hypofractionation Antiestrogen Therapy: planned after RT RADIATION ONCOLOGY TREATMENT COMPLETION LETTER Dear Dr. Zack Casanova: As you know, Christelle Maria is a 65 year old female who underwent an excisional biopsy for mammographically occult pathologic stage 0is (Tis Nx Mx) ER/[place](+) 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 She received hypofractionated whole breast radiation between 05/28/2021 and 06/25/2021. The right breast received 4256 cGy delivered in 16 daily fractions of 266 cGy each through coplanar medial and lateral tangential oswald. Multiple segmental MLC oswald and wedges were utilized for an irregular surface tissue firefighter type one effect to improve dose homogeneity. The heart was excluded from the oswald. The lumpectomy bed received a boost of 1000 cGy delivered in 4 fractions of 250 cGy each through a wedged 3-field beam arrangement, bringing the total cumulative dose to [address] simulation was utilized for 3-D planning and DVH analysis. Her body was immobilized in treatment position with a custom fabricated alpha-cradle. She tolerated treatment very well. She experienced mild fatigue and developed very mild localized skin redness without miliaria which was managed with Aquaphor. She will return for a follow-up visit in 6 weeks. However, I cautioned her that with hypofractionated breast radiation, in some women the skin reaction peaks ~ 1 week after completing treatment and she should call with any skin concerns. Thank you for asking me to participate in the care of your patient. If any further questions or concerns should arise, please do not hesitate to contact me. Sincerely, Jennifer Mariano Mai, MD
--- NOTE | 2021-07-07 13:09 | PC.NURSE ---
Treatment summary note faxed to Dr Michael Casanova office.
--- NOTE | 2021-08-11 09:02 | PDRADONCFUV ---
Assessment/Plan - Assessment Assessment: Christelle Maria is a 65 year old female who underwent an excisional biopsy for mammographically occult pathologic stage 0is (Tis Nx Mx) ER/DE(+) 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 She completed hypofractionated whole breast radiation 6 weeks ago. She has no clinical evidence of recurrence. - Plan Plan: 1. Return for follow-up in 6 months. 2. I discussed the timing and symptoms of radiation pneumonitis. 3. I discussed the role of regular moderate exercise (30 minutes 5 days/week or 150 minutes/week) and a low-fat diet in lowering breast cancer recurrence risk and cancer risk in general.. 4. Continue taking Anastrozole per Dr Lovett. 5. Seeing Dr. Lovett in October 2021 with a mammogram. 6. Seeing her breast surgeon, Dr. Casanova, in October 2021 7. She was encouraged to call with questions or concerns prior to her next appointment. Jennifer Mariano Mai, MD This note was transcribed using '[employer]', a computerized voice recognition without a human stereotype molder. This report may or may not have been adjusted for typographical, grammatical and syntax errors. Follow Up Note - Date/Time 08/11/21 09:02 Diagnosis: Breast Cancer, RIGHT 9:00/lateral, pTis Nx, ER(+) Clinical Stage 0is (Tis Nx Mx) Date of Diagnosis: 03/11/2021 Genetic Testing: none Path: 25 mm G1 DCIS, no necrosis, (-)mar(1 mm posterior), (+)ADH Prognostic Factors: ER/DE(+)100% Surgeon(s): Dr Zack Casanova ([facility]) Surgery: RT Lumpectomy (04/14/2021) Med Onc: Rachell Chemo: none Rad Onc: Rita Radiation: 05/28 - 06/25/2021; RIGHT whole breast hypofractionation Right Breast 4256 cGy at 266 cGy x 16 fractions Breast Boost 1000 cGy at 250 cGy x 4 fractions Antiestrogen Therapy: Anastrozole (started 07/2021) Identification: Christelle Maria is a 65 year old female who underwent an excisional biopsy for mammographically occult pathologic stage 0is (Tis Nx Mx) ER/DE(+) 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 She received hypofractionated whole breast radiation between 05/28/2021 and 06/25/2021. She returns now for routine follow-up. She is by herself today. Interval History: Since she was last seen, Ms. Maria continues to do well without any new problems. She started taking anastrozole approximately 1 month ago under the direction of Dr. Lovett and reports occasional hot flashes but no muscle or joint pain. She has no other specific complaints. She denies unintentional weight loss, frequent or severe?headaches,?persistent?cough,?new or worsening dyspnea,?fever,?chest pain, abdominal or pelvic?discomfort, new bony pain, arm pain or swelling,?or new breast symptomatology. Bilateral diagnostic 3D mammograms due in January 2022. She is a lifelong non-smoker. She exercises daily (walks 3-4 miles) and reports having a healthy, lower fat diet. Cancer Screening Last Bilateral Mammogram: 01/13/2021 Last PAP/CARDIAC REHAB NURSE Exam: 05/2021 (s/p hysterectomy, still has 1 ovary). Last Colonoscopy: 2018. H/o adenomatous polyps. F/U in 5 years was recommended. Due in 2023. Last Stool Immunoassay for Hemoglobin: Lymphedema History None Oncology History: Oncology Summary Breast Cancer, RIGHT 9:00/lateral, pTis Nx, ER(+) 01/13/2021 Bilat Screen 3D MG: Heterogeneously dense. No suspicious mass, microcalcification, or architectural distortion in either breast. 02/12/2021 RT Breast US: At 9:00, 6 cm from the nipple is a stable 2 x 4 mm circumscribed hypoechoic lesion consistent with benign process. At 9:00, 7 cm from the nipple is a 3.5 x 6.2 mm circumscribed solid mass which is increased in size compared to 05/2019. 03/11/2020 RT Breast Core Bx, [facility]: Biopsy marker in expected position at 9:00 Path: atypical ductal hyperplasia associated with calcifications 04/14/2021 RT Lumpectomy (Dr Zack Casanova), [facility] Specimen X-Ray: Localization wire and adjacent biopsy marker within lumpectomy specimen Path: 25 mm G1 DCIS, no necrosis, (-)mar(1 mm posterior), ER/DE(+)100% 06/25/2021 Radiation (Dr Salinas): RIGHT whole breast hypofractionation Right Breast 4256 cGy at 266 cGy x 16 fractions Breast Boost 1000 cGy at 250 cGy x 4 fractions 07/2021 - Endocrine Rx (Dr Lovett): Anastrozole Presentation / Summary Bilateral screening mammogram in January 2021 was unremarkable. Right breast ultrasound in February as a 6-month follow-up of two right breast masses demonstrated interval increase in size of a 6.2 mm mass at 9:00 located 7 cm from the nipple, prompting further evaluation. She had no preceding breast symptomatology. No prior breast biopsies. Ultrasound-guided core biopsy demonstrated atypical ductal hyperplasia. Excisional biopsy was performed on 04/14/2021: no invasive cancer and margins negative by at least 1 mm. Saw her surgeon in follow-up and no margin reexcision was recommended. She received hypofractionated whole breast radiation between 05/28/2021 and 06/25/2021. 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 Menarche: age 13 Menopause: age 39 OCP: Remote history, < 5 yrs HRT: Remote history, < 5 yrs S/p hysterectomy, still has 1 ovary Relevant Social/Medical History Single. Lives in [place], [place]. Retired last year from [employer]. Exercise: Walks 3-4 miles daily Prior Radiation: none Implanted Cardiac Devices: none Tobacco: no history of smoking Inflammatory Bowel Disease: none Collagen Vascular Disorders: (Lupus, Scleroderma, RA): none (sister has lupus) Review of Systems: Per HPI, otherwise negative Pain Assessment and Management: Pain Assessment: 0/10 (no pain) Pain Management: no pain (no intervention needed) ECOG Performance Score: 0 (fully active, able to carry on all pre-disease performance without restriction) H&P - Exam - General Physical Examination: General: A pleasant well-developed, well-nourished female resting comfortably in the exam room, in no acute distress. Neck: Supple without thyromegaly or masses. No JVD or edema. Lymphatics: No cervical, supraclavicular, infraclavicular, or axillary adenopathy. Lungs: Clear to auscultation bilaterally. No wheezes, rhonchi or rales. No dullness to percussion. Heart: Regular rate and rhythm. No murmurs, rubs, or gallops. Abdomen: Soft, nontender, nondistended, without hepatosplenomegaly or masses. No rebound or guarding. Musculoskeletal: No tenderness over the axial or appendicular skeleton. Extremities: No arm/hand lymphedema. Good range of motion of both upper extremities. No clubbing or cyanosis. Breasts: Examination of the left breast is unremarkable, with no erythema, edema, masses, or suspicious skin lesions. Examination of the right breast demonstrates a well healed lumpectomy incision in the lateral aspect of the breast with slight retraction, unchanged. No breast erythema. No breast edema. Minimal residual breast tanning, primarily within skin folds. Resolving lumpectomy bed seroma now measuring 2 x 2 cm (previously measured 4 x 3 cm). No right breast masses or suspicious skin lesions. Neurologic: ?Alert & oriented. ?Speech is fluent and comprehension appears intact. Normal affect and mood. Moves all 4 extremities well with no gross focal motor deficits. Gait steady.
[2021-08-11 09:09] VITALS: BP 137/66; PULSE 74; RESP 20; TEMP 37.1; O2SAT 99
[2022-02-10 09:30] VITALS: BP 130/68; PULSE 72; RESP 20; TEMP 36.9; O2SAT 98
--- NOTE | 2022-02-10 11:18 | P.RADPN_ITS ---
Assessment/Plan - Assessment Christelle Maria is a 66 year old female who underwent an excisional biopsy for mammographically-occult pathologic stage 0is (Tis Nx Mx) ER/ND(+) 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 She completed hypofractionated whole breast radiation 7-1/2 months ago and is taking Arimidex. She has no clinical evidence of recurrence. - Plan 1. Return for follow-up in 6 months (Aug 2022). 2. I discussed the role of regular moderate exercise (30 minutes 5 days/week or 150 minutes/week) and a low-fat diet in lowering breast cancer recurrence risk and cancer risk in general. 3. She reports frequently developing increased moisture under the breasts and having non-itchy rashes within the bilateral inframammary folds for which Dr. Lovett prescribed oral Ketoconazole for presumed yeast infection in November 2021 which she states did not help much, but she feels that topical steroid cream has provided significant relief. I advised her that topical steroids are not recommended for yeast infections. Her exam today does not demonstrate an active yeast infection. I recommended that she use an [id number] antifungal powder or Goldbond powder under the breasts to help prevent infection. 4. Continue Anastrozole per Dr Lovett which she is tolerating well. 5. Seeing Dr. Lovett in June 2022. 6. Bilateral mammograms have been ordered by her surgeon and scheduled on March 13, 2022. 7. Seeing her breast surgeon, Dr. Casanova, in April 2022 8. She was encouraged to call with questions or concerns prior to her next appointment. Jennifer Mariano Mai, MD This note was transcribed using '[employer]', a computerized voice recognition without a human commercial horticulture instructor. This report may or may not have been adjusted for typographical, grammatical and syntax errors. Follow Up Note - Date/Time 02/10/22 11:18 Diagnosis: Breast Cancer, RIGHT 9:00/lateral, pTis Nx, ER(+) Clinical Stage 0is (Tis Nx Mx) Date of Diagnosis: 03/11/2021 Genetic Testing: none Path: 25 mm G1 DCIS, no necrosis, (-)mar(1 mm posterior), (+)ADH Prognostic Factors: ER/ND(+)100% Surgeon(s): Dr Zack Casanova ([facility]) Surgery: RT Lumpectomy (04/14/2021) Med Onc: Rachell Chemo: none Rad Onc: Rita Radiation: 05/28 - 06/25/2021; RIGHT whole breast hypofractionation Right Breast 4256 cGy at 266 cGy x 16 fractions Breast Boost 1000 cGy at 250 cGy x 4 fractions Antiestrogen Therapy: Anastrozole (started 07/2021) Identification: Christelle Maria is a 66 year old female who underwent an excisional biopsy for mammographically-occult pathologic stage 0is (Tis Nx Mx) ER/ND(+) 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 She received hypofractionated whole breast radiation between 05/28/2021 and 06/25/2021, then she was subsequently started on Arimidex. She returns now for routine follow-up. She is by herself today. Interval History: Since she was last seen, Ms. Maria continues to do well without any new medical problems. She started taking Anastrozole in July 2021 under the direction of Dr. Lovett and denies significant side-effects. She reports frequently developing increased moisture under the breasts and having non-itchy rashes within the bilateral inframammary folds for which Dr. Lovett prescribed oral Ketoconazole for presumed yeast infection in November 2021 which she states did not help much, but she feels that topical steroid cream has provided significant relief. She denies unintentional weight loss, frequent or severe?headaches,?persistent?cough,?new or worsening dyspnea,?chest pain, abdominal/pelvic?discomfort, new bone pain, arm pain or swelling,?or any other new breast symptomatology. Right diagnostic 3D mammogram performed at [facility] on 10/03/2021 demonstrated heterogeneously dense breast tissue, changes consistent with interval lumpectomy in the outer breast, stable asymmetry in the posterior third of the slightly outer breast, and no suspicious mass or calcifications. Bilateral mammograms have been scheduled by her surgeon on March 13, 2022. She is a lifelong non-smoker. She exercises daily (walks 2-4 miles, gardens), does 16-hour intermittent fasting, and reports having a healthy lower-fat diet. Cancer Screening Last Bilateral Mammogram: 01/13/2021 Last RT Mammogram: 10/03/2021 Last PAP Test: 05/2021 (s/p hyst, still has 1 ovary) --> no further routine PAP testing was recommended per patient Last Colonoscopy: 2018. H/o adenomatous polyps. F/U in 5 years was recommended. Due in 2023. Lymphedema History None Oncology History: Oncology Summary Breast Cancer, RIGHT 9:00/lateral, pTis Nx, ER(+) 01/13/2021 Bilat Screen 3D MG: Heterogeneously dense. No suspicious mass, microcalcification, or architectural distortion in either breast. 02/12/2021 RT Breast US: At 9:00, 6 cm from the nipple is a stable 2 x 4 mm circumscribed hypoechoic lesion consistent with benign process. At 9:00, 7 cm from the nipple is a 3.5 x 6.2 mm circumscribed solid mass which is increased in size compared to 05/2019. 03/11/2020 RT Breast Core Bx, [facility]: Biopsy marker in expected position at 9:00 Path: atypical ductal hyperplasia associated with calcifications 04/14/2021 RT Lumpectomy (Dr Zack Casanova), [facility] Specimen X-Ray: Localization wire and adjacent biopsy marker within lumpectomy specimen Path: 25 mm G1 DCIS, no necrosis, (-)mar(1 mm posterior), ER/ND(+)100% 06/25/2021 Radiation (Dr Salinas): RIGHT whole breast hypofractionation Right Breast 4256 cGy at 266 cGy x 16 fractions Breast Boost 1000 cGy at 250 cGy x 4 fractions 07/2021 - Endocrine Rx (Dr Lovett): Anastrozole Presentation / Summary Bilateral screening mammogram in January 2021 was unremarkable. Right breast ultrasound in February as a 6-month follow-up of two right breast masses demonstrated interval increase in size of a 6.2 mm mass at 9:00 located 7 cm from the nipple, prompting further evaluation. She had no preceding breast symptomatology. No prior breast biopsies. Ultrasound-guided core biopsy demonstrated atypical ductal hyperplasia. Excisional biopsy was performed on 04/14/2021: no invasive cancer and margins negative by at least 1 mm. Saw her surgeon in follow-up and no margin reexcision was recommended. She received hypofractionated whole breast radiation between 05/28/2021 and 06/25/2021. 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 Menarche: age 13 Menopause: age 39 OCP: Remote history, < 5 yrs HRT: Remote history, < 5 yrs S/p hysterectomy, still has 1 ovary Additional Social/Medical History Single. Lives in [place], [place]. Retired from [employer]. Exercise: Walks 2-4 miles daily, [place] Prior Radiation: none Implanted Cardiac Devices: none Tobacco: no history of smoking Inflammatory Bowel Disease: none Collagen Vascular Disorders: (Lupus, Scleroderma, RA): none (sister has lupus) Review of Systems: (+)History of Encephalitis a few years ago with persistent difficulty with spelling and reading Remaining systems negative unless otherwise stated in the history Pain Assessment and Management: Pain Assessment: 0/10 (no pain) Pain Management: no pain (no intervention needed) ECOG Performance Score: 0 (fully active, able to carry on all pre-disease performance without restriction) H&P - Exam - General GENERAL: A pleasant well-developed, well-nourished female resting comfortably in the exam room, in no acute distress. NECK: Supple without thyromegaly or masses. No JVD or edema. LYMPHATICS: No cervical, supraclavicular, infraclavicular, or axillary adenopathy. LUNGS: Clear to auscultation bilaterally. No wheezes, rhonchi or rales. No dullness to percussion. HEART: Regular rate and rhythm. No murmurs, rubs, or gallops. ABDOMEN: Soft, nontender, nondistended, without hepatosplenomegaly or masses. No rebound or guarding. MUSCULOSKELETAL: No tenderness over the axial or appendicular skeleton. EXTREMITIES: No arm/hand lymphedema. Good range of motion of both upper extremities. No clubbing or cyanosis. BREASTS: Within both inframammary folds there is a minimal erythema and mild hyperpigmentation with no moist areas or odor. Examination of the RIGHT breast demonstrates a well healed lumpectomy incision in the lateral aspect of the breast with slight retraction, unchanged. No breast erythema. No breast edema. Minimal residual breast tanning, primarily within skin folds. Resolving lumpectomy bed seroma centered under the surgical scar now measuring 1 x 1.3 cm (measured 2 x 2 cm on last exam and measured 4 x 3 cm previously). There is a sub-cm mildly tender subcutaneous soft nodule just above the right lateral IMF most likely representing a sebaceous cyst or other similar benign entity. No suspicious right breast masses or skin lesions. Examination of the LEFT breast is unremarkable, with no erythema, edema, masses, or suspicious skin lesions. NEUROLOGIC / PSYCHOLOGIC: ?Alert & oriented. ?Speech is fluent and comprehension appears intact. Normal affect and mood. Moves all 4 extremities well with no gross focal motor deficits. Gait steady. - Vital Signs Vital Signs - 24 hr 02/10/22 09:30 Temperature 36.9 C Pulse Rate 72 Respiratory Rate 20 Blood Pressure 130/68 Pulse Oximetry 98 - Radiologic Data MM diagnostic hans RT w jair: 10/03/2021 HISTORY: History of right breast cancer COMPARISON: 01/13/2021, 01/09/2020, 05/26/2019 BREAST PARENCHYMAL COMPOSITION: The breasts are heterogeneously dense, which may obscure small masses. FINDINGS: There are changes of interval lumpectomy in the outer breast. No suspicious mass, calcification, or architectural distortion are identified. A stable asymmetry is seen in the posterior third of the slightly outer breast. IMPRESSION: 1. Changes of interval lumpectomy without mammographic evidence of malignancy. 2. Routine screening mammography is recommended.
--- NOTE | 2022-02-10 11:47 | PDRADONCFUV ---
Follow Up Note - Date/Time 02/10/22 11:47 Diagnosis: Breast Cancer, RIGHT 9:00/lateral, pTis Nx, ER(+) Clinical Stage 0is (Tis Nx Mx) Date of Diagnosis: 03/11/2021 Genetic Testing: none Path: 25 mm G1 DCIS, no necrosis, (-)mar(1 mm posterior), (+)ADH Prognostic Factors: ER/NE(+)100% Surgeon(s): Dr Zack Casanova ([facility]) Surgery: RT Lumpectomy (04/14/2021) Med Onc: Rachell Chemo: none Rad Onc: Rita Radiation: 05/28 - 06/25/2021; RIGHT whole breast hypofractionation Right Breast 4256 cGy at 266 cGy x 16 fractions Breast Boost 1000 cGy at 250 cGy x 4 fractions Antiestrogen Therapy: Anastrozole (started 07/2021) Identification: Christelle Maria is a 66 year old female who underwent an excisional biopsy for mammographically-occult pathologic stage 0is (Tis Nx Mx) ER/NE(+) 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 She received hypofractionated whole breast radiation between 05/28/2021 and 06/25/2021, then she was subsequently started on Arimidex. She returns now for routine follow-up. She is by herself today. Interval History: Since she was last seen, Ms. Maria continues to do well without any new medical problems. She started taking Anastrozole in July 2021 under the direction of Dr. Lovett and complains of progressively worsening joint pain and stiffness in her hands. She sees medical oncology today and is planning to discuss changing endocrine therapy medication. She reports non-itchy rashes under both breast for which Dr. Lovett prescribed ketoconazole in November 25 which she states did not help much, but she feels that topical steroid cream has been helping. She denies unintentional weight loss, frequent or severe?headaches,?persistent?cough,?new or worsening dyspnea,?chest pain, abdominal/pelvic?discomfort, new bone pain, arm pain or swelling,?or other new breast symptomatology. Right diagnostic 3D mammogram performed at [facility] on 10/03/2021 demonstrated heterogeneously dense breast tissue, changes consistent with interval lumpectomy in the outer breast, stable asymmetry in the posterior third of the slightly outer breast, and no suspicious mass or calcifications. Bilateral mammograms have been scheduled by her surgeon on March 13. She is a lifelong non-smoker. She exercises daily (walks 2-4 miles, gardens), does 16-hour intermittent fasting, and reports having a healthy lower-fat diet. Cancer Screening Last Bilateral Mammogram: 01/13/2021 Last RT Mammogram: 10/03/2021 Last PAP Test: 05/2021 (s/p hyst, still has 1 ovary) --> no further routine PAP testing was recommended per patient Last Colonoscopy: 2018. H/o adenomatous polyps. F/U in 5 years was recommended. Due in 2023. Lymphedema History None Oncology History: Oncology Summary Breast Cancer, RIGHT 9:00/lateral, pTis Nx, ER(+) 01/13/2021 Bilat Screen 3D MG: Heterogeneously dense. No suspicious mass, microcalcification, or architectural distortion in either breast. 02/12/2021 RT Breast US: At 9:00, 6 cm from the nipple is a stable 2 x 4 mm circumscribed hypoechoic lesion consistent with benign process. At 9:00, 7 cm from the nipple is a 3.5 x 6.2 mm circumscribed solid mass which is increased in size compared to 05/2019. 03/11/2020 RT Breast Core Bx, [facility]: Biopsy marker in expected position at 9:00 Path: atypical ductal hyperplasia associated with calcifications 04/14/2021 RT Lumpectomy (Dr Zack Casanova), [facility] Specimen X-Ray: Localization wire and adjacent biopsy marker within lumpectomy specimen Path: 25 mm G1 DCIS, no necrosis, (-)mar(1 mm posterior), ER/NE(+)100% 06/25/2021 Radiation (Dr Salinas): RIGHT whole breast hypofractionation Right Breast 4256 cGy at 266 cGy x 16 fractions Breast Boost 1000 cGy at 250 cGy x 4 fractions 07/2021 - Endocrine Rx (Dr Lovett): Anastrozole Presentation / Summary Bilateral screening mammogram in January 2021 was unremarkable. Right breast ultrasound in February as a 6-month follow-up of two right breast masses demonstrated interval increase in size of a 6.2 mm mass at 9:00 located 7 cm from the nipple, prompting further evaluation. She had no preceding breast symptomatology. No prior breast biopsies. Ultrasound-guided core biopsy demonstrated atypical ductal hyperplasia. Excisional biopsy was performed on 04/14/2021: no invasive cancer and margins negative by at least 1 mm. Saw her surgeon in follow-up and no margin reexcision was recommended. She received hypofractionated whole breast radiation between 05/28/2021 and 06/25/2021. 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 Menarche: age 13 Menopause: age 39 OCP: Remote history, < 5 yrs HRT: Remote history, < 5 yrs S/p hysterectomy, still has 1 ovary Additional Social/Medical History Single. Lives in [place], [place]. Retired from [employer]. Exercise: Walks 2-4 miles daily, Gardening Prior Radiation: none Implanted Cardiac Devices: none Tobacco: no history of smoking Inflammatory Bowel Disease: none Collagen Vascular Disorders: (Lupus, Scleroderma, RA): none (sister has lupus) Review of Systems: Per HPI, otherwise negative Pain Assessment and Management: Pain Assessment: 0/10 (no pain) Pain Management: no pain (no intervention needed) ECOG Performance Score: 0 (fully active, able to carry on all pre-disease performance without restriction) H&P - Exam - Vital Signs Vital Signs - 24 hr 02/10/22 09:30 Temperature 36.9 C Pulse Rate 72 Respiratory Rate 20 Blood Pressure 130/68 Pulse Oximetry 98
[2022-09-03 09:42] VITALS: BP 138/78; PULSE 72; RESP 20; TEMP 36.9; O2SAT 99
--- NOTE | 2022-09-03 09:56 | PDRADONCFUV ---
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 She completed hypofractionated whole breast radiation 14 months ago and is taking Tamoxifen. She has no clinical evidence of recurrence. - Plan Plan 1. Return for follow-up in 6 months (Aug 2022). 2. I discussed the role of regular moderate exercise (30 minutes 5 days/week or 150 minutes/week) and a low-fat diet in lowering breast cancer recurrence risk and cancer risk in general. 3. Continue Tamoxifen per Dr Lovett which she is tolerating well. 4. Seeing Dr. Lovett in October 2022. She has no routine scheduled follow-up with her breast surgeon, Dr. Casanova. 5. Bilateral mammograms are due in April 2020. 6. She was encouraged to call with questions or concerns prior to her next appointment. Jennifer Mariano Mai, MD This note was transcribed using '[employer]', a computerized voice recognition without a human line haul truck driver. This report may or may not have been adjusted for typographical, grammatical and syntax errors. Follow Up Note - Date/Time 09/03/22 09:56 Diagnosis: Breast Cancer, RIGHT 9:00/lateral, pTis Nx, ER(+) Clinical Stage 0is (Tis Nx Mx) Date of Diagnosis: 03/11/2021 Genetic Testing: none Path: 25 mm G1 DCIS, no necrosis, (-)mar(1 mm posterior), (+)ADH Prognostic Factors: ER/OH(+)100% Surgeon(s): Dr Zack Casanova ([facility]) Surgery: RT Lumpectomy (04/14/2021) Med Onc: Rachell Chemo: none Rad Onc: Rita Radiation: 05/28 - 06/25/2021; RIGHT whole breast hypofractionation Right Breast 4256 cGy at 266 cGy x 16 fractions Breast Boost 1000 cGy at 250 cGy x 4 fractions Endocrine Therapy: Anastrozole (started 07/2021) --> VAUGHN (started 06/2022) Identification: Christelle Maria is a 66 year old female who underwent an excisional biopsy for mammographically-occult pathologic stage 0is (Tis Nx Mx) ER/OH(+) 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 She received hypofractionated whole breast radiation between 05/28/2021 and 06/25/2021, then she was subsequently started on Arimidex and switched to Tamoxifen in 06/2022. She returns now for routine follow-up. She is by herself today. Interval History: Since she was last seen, Ms. Maria continues to do well without any new medical problems. She initially started taking Anastrozole in July 2021 but was switched to Tamoxifen due to osteoporosis in 06/2022 and denies side-effects. She denies unintentional weight loss, frequent or severe?headaches,?persistent?cough,?new or worsening dyspnea,?chest pain, abdominal/pelvic?discomfort, new bone pain, arm pain or swelling,?or any other new breast symptomatology. Bilateral screening 3D mammogram on 04/13/2022 demonstrated heterogeneously dense breast tissue and a rounded 2.4 cm fatty density in the outer mid right breast with surrounding linear projection, consistent with postsurgical change including large oil cyst. No suspicious findings in either breast. She is a lifelong non-smoker. She walks daily for exercise, does 16-hour intermittent fasting, and reports having a healthy lower-fat diet. Cancer Screening Last Bilateral Mammogram: 04/13/2022 Last PAP Test: 05/2021 (s/p hyst, still has 1 ovary) --> no further routine PAP testing was recommended per patient Last Colonoscopy: 2018. H/o adenomatous polyps. F/U in 5 years was recommended. Due in 2023. Lymphedema History None Oncology History: Oncology Summary Breast Cancer, RIGHT 9:00/lateral, pTis Nx, ER(+) 01/13/2021 Bilat Screen 3D MG: Heterogeneously dense. No suspicious mass, microcalcification, or architectural distortion in either breast. 02/12/2021 RT Breast US: At 9:00, 6 cm from the nipple is a stable 2 x 4 mm circumscribed hypoechoic lesion consistent with benign process. At 9:00, 7 cm from the nipple is a 3.5 x 6.2 mm circumscribed solid mass which is increased in size compared to 05/2019. 03/11/2020 RT Breast Core Bx, [facility]: Biopsy marker in expected position at 9:00 Path: atypical ductal hyperplasia associated with calcifications 04/14/2021 RT Lumpectomy (Dr Zack Casanova), [facility] Specimen X-Ray: Localization wire and adjacent biopsy marker within lumpectomy specimen Path: 25 mm G1 DCIS, no necrosis, (-)mar(1 mm posterior), ER/OH(+)100% 06/25/2021 Radiation (Dr Salinas): RIGHT whole breast hypofractionation Right Breast 4256 cGy at 266 cGy x 16 fractions Breast Boost 1000 cGy at 250 cGy x 4 fractions 07/2021 - Endocrine Rx (Dr Lovett): Anastrozole (07/2021-05/2022) --> VAUGHN (started 06/2022) Presentation / Summary Bilateral screening mammogram in January 2021 was unremarkable. Right breast ultrasound in February as a 6-month follow-up of two right breast masses demonstrated interval increase in size of a 6.2 mm mass at 9:00 located 7 cm from the nipple, prompting further evaluation. She had no preceding breast symptomatology. No prior breast biopsies. Ultrasound-guided core biopsy demonstrated atypical ductal hyperplasia. Excisional biopsy was performed on 04/14/2021: no invasive cancer and margins negative by at least 1 mm. Saw her surgeon in follow-up and no margin reexcision was recommended. She received hypofractionated whole breast radiation between 05/28/2021 and 06/25/2021. 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 Menarche: age 13 Menopause: age 39 OCP: Remote history, < 5 yrs HRT: Remote history, < 5 yrs S/p hysterectomy, still has 1 ovary Additional Social/Medical History Single. Lives in [place], [place]. Retired from [employer]. Exercise: Walks daily Prior Radiation: none Implanted Cardiac Devices: none Tobacco: no history of smoking Inflammatory Bowel Disease: none Collagen Vascular Disorders: (Lupus, Scleroderma, RA): none (sister has lupus) Review of Systems: (+)History of Encephalitis a few years ago with persistent difficulty with spelling and reading Remaining systems negative unless otherwise stated in the history Pain Assessment and Management: Pain Assessment: 0/10 (no pain) Pain Management: no pain (no intervention needed) ECOG Performance Score: 0 (fully active, able to carry on all pre-disease performance without restriction) H&P - Exam - General Physical Examination GENERAL: Well-developed, well-nourished female resting comfortably in the exam room, in no acute distress. NECK: Supple without thyromegaly or masses. No JVD or edema. LYMPHATICS: No cervical, supraclavicular, infraclavicular, or axillary adenopathy. LUNGS: Clear to auscultation bilaterally. No wheezes, rhonchi or rales. No dullness to percussion. HEART: Regular rate and rhythm. No murmurs, rubs, or gallops. ABDOMEN: Soft, nontender, nondistended, without hepatosplenomegaly or masses. No rebound or guarding. MUSCULOSKELETAL: No tenderness over the axial or appendicular skeleton. EXTREMITIES: No arm/hand lymphedema. Good range of motion of both upper extremities. No clubbing or cyanosis. BREASTS: Within both inframammary folds there is a minimal erythema and mild hyperpigmentation with no moist areas or odor. Examination of the RIGHT breast demonstrates a well healed lumpectomy incision in the lateral aspect of the breast with slight retraction, unchanged. No breast erythema. Mild edema limited to the nipple-areolar complex. No significant residual breast tanning/hyperpigmentation. Lumpectomy bed seroma vs scar tissue centered under the surgical scar now measuring 1 x 1.3 cm, stable (measured up to 4 x 3 cm previously). No suspicious right breast masses or skin lesions. Examination of the LEFT breast is unremarkable, with no erythema, edema, masses, or suspicious skin lesions. NEUROLOGIC / PSYCHOLOGIC: ?Alert. ?Speech is fluent and comprehension appears intact. Normal affect and mood. Moves all 4 extremities well with no gross focal motor deficits. Gait steady. - Vital Signs Vital Signs - 24 hr 09/03/22 09:42 Temperature 36.9 C Pulse Rate 72 Respiratory Rate 20 Blood Pressure 138/78 Pulse Oximetry 99
[2023-03-19 10:43] VITALS: BP 138/74; PULSE 70; TEMP 36.8; O2SAT 99
--- NOTE | 2023-03-19 11:20 | PDRADONCFUV ---
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 She completed hypofractionated whole breast radiation 1 year 9 months ago and is taking Tamoxifen. She has no clinical evidence of recurrence. Plan 1. Return for follow-up in 1 year. 2. Encouraged continued regular moderate exercise (30 minutes 5 days/week or 150 minutes/week). Studies have shown lower breast cancer recurrence risk and cancer risk in general. 3. Continue Tamoxifen per Dr Lovett which she is tolerating well. 4. Seeing Dr. Lovett in April 2023 (q6mo). She has no routine scheduled follow-up with her breast surgeon, Dr. Casanova. 5. Bilateral mammograms are scheduled in April 2023. 6. She was encouraged to call with questions or concerns prior to her next appointment. Jennifer Mariano Mai, MD Follow Up Note - Date/Time 03/19/23 11:20 Diagnosis: Breast Cancer, RIGHT 9:00/lateral, pTis Nx, ER(+) Clinical Stage 0is (Tis Nx Mx) Date of Diagnosis: 03/11/2021 Genetic Testing: none Path: 25 mm G1 DCIS, no necrosis, (-)mar(1 mm posterior), (+)ADH Prognostic Factors: ER/SD(+)100% Surgeon(s): Dr Zack Casanova ([facility]) Surgery: RT Lumpectomy (04/14/2021) Med Onc: Rachell Chemo: none Rad Onc: Rita Radiation: 05/28 - 06/25/2021; RIGHT whole breast hypofractionation Right Breast 4256 cGy at 266 cGy x 16 fractions Breast Boost 1000 cGy at 250 cGy x 4 fractions Endocrine Therapy: Anastrozole (started 07/2021) --> VAUGHN (started 06/2022) Identification: Christelle Maria is a 67 year old female who underwent an excisional biopsy for mammographically-occult pathologic stage 0is (Tis Nx Mx) ER/SD(+) 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 She received hypofractionated whole breast radiation between 05/28/2021 and 06/25/2021, then she was subsequently started on Arimidex and switched to Tamoxifen in 06/2022. She returns now for routine follow-up. She is by herself today. Interval History: Since she was last seen, Ms. Maria continues to do well. She is currently wearing a heart monitory for evaluation of intermittent palpitations and dyspnea on exertion with decreased stamina. She continues on Tamoxifen which she is tolerating well. She denies unintentional weight loss, frequent or severe?headaches,?persistent?cough,?chest pain, abdominal/pelvic?discomfort, new bone pain, arm pain or swelling,?or any other new breast symptomatology. Bilateral screening 3D mammogram on 04/13/2022 demonstrated heterogeneously dense breast tissue and a rounded 2.4 cm fatty density in the outer mid right breast with surrounding linear projection, consistent with postsurgical change including large oil cyst. No suspicious findings in either breast. She is a lifelong non-smoker. She walks daily for exercise, does 16-hour intermittent fasting, and reports having a healthy lower-fat diet. Cancer Screening Last Bilateral Mammogram: 04/13/2022 Last PAP Test: 05/2021 (s/p hyst, still has 1 ovary) --> no further routine PAP testing was recommended per patient Last Colonoscopy: 2018. H/o adenomatous polyps. F/U in 5 years was recommended. Due in 2023. Lymphedema History None Oncology History: Oncology Summary Breast Cancer, RIGHT 9:00/lateral, pTis Nx, ER(+) 01/13/2021 Bilat Screen 3D MG: Heterogeneously dense. No suspicious mass, microcalcification, or architectural distortion in either breast. 02/12/2021 RT Breast US: At 9:00, 6 cm from the nipple is a stable 2 x 4 mm circumscribed hypoechoic lesion consistent with benign process. At 9:00, 7 cm from the nipple is a 3.5 x 6.2 mm circumscribed solid mass which is increased in size compared to 05/2019. 03/11/2020 RT Breast Core Bx, [facility]: Biopsy marker in expected position at 9:00 Path: atypical ductal hyperplasia associated with calcifications 04/14/2021 RT Lumpectomy (Dr Zack Casanova), [facility] Specimen X-Ray: Localization wire and adjacent biopsy marker within lumpectomy specimen Path: 25 mm G1 DCIS, no necrosis, (-)mar(1 mm posterior), ER/SD(+)100% 06/25/2021 Radiation (Dr Salinas): RIGHT whole breast hypofractionation Right Breast 4256 cGy at 266 cGy x 16 fractions Breast Boost 1000 cGy at 250 cGy x 4 fractions 07/2021 - Endocrine Rx (Dr Lovett): Anastrozole (07/2021-05/2022) --> VAUGHN (started 06/2022) Presentation / Summary Bilateral screening mammogram in January 2021 was unremarkable. Right breast ultrasound in February as a 6-month follow-up of two right breast masses demonstrated interval increase in size of a 6.2 mm mass at 9:00 located 7 cm from the nipple, prompting further evaluation. She had no preceding breast symptomatology. No prior breast biopsies. Ultrasound-guided core biopsy demonstrated atypical ductal hyperplasia. Excisional biopsy was performed on 04/14/2021: no invasive cancer and margins negative by at least 1 mm. Saw her surgeon in follow-up and no margin reexcision was recommended. She received hypofractionated whole breast radiation between 05/28/2021 and 06/25/2021. 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 Menarche: age 13 Menopause: age 39 OCP: Remote history, < 5 yrs HRT: Remote history, < 5 yrs S/p hysterectomy, still has 1 ovary Additional Social/Medical History Single. Lives in [place], [place]. Retired from [employer]. Exercise: Walks daily Prior Radiation: none Implanted Cardiac Devices: none Tobacco: no history of smoking Inflammatory Bowel Disease: none Collagen Vascular Disorders: (Lupus, Scleroderma, RA): none (sister has lupus) Review of Systems: (+)History of Encephalitis a few years ago with persistent difficulty with spelling and reading Remaining systems negative unless otherwise stated in the history Pain Assessment and Management: Pain Assessment: 0/10 (no pain) Pain Management: no pain (no intervention needed) ECOG Performance Score: 0 (fully active, able to carry on all pre-disease performance without restriction) H&P - Exam - General Physical Examination GENERAL: Well-developed, well-nourished female resting comfortably in the exam room, in no acute distress. NECK: Supple without thyromegaly or masses. No JVD or edema. LYMPHATICS: No cervical, supraclavicular, infraclavicular, or axillary adenopathy. LUNGS: Clear to auscultation bilaterally. No wheezes, rhonchi or rales. No dullness to percussion. HEART: Regular rate and rhythm. No murmurs, rubs, or gallops. ABDOMEN: Soft, nontender, nondistended, without hepatosplenomegaly or masses. No rebound or guarding. MUSCULOSKELETAL: No tenderness over the axial or appendicular skeleton. EXTREMITIES: No arm/hand lymphedema. Good range of motion of both upper extremities. No clubbing or cyanosis. BREASTS: Within both inframammary folds there is mild erythema with no moist areas or odor. Examination of the RIGHT breast demonstrates a well healed lumpectomy incision in the lateral aspect of the breast with slight retraction, unchanged. No breast erythema. Mild edema limited to the nipple-areolar complex, unchanged. No significant residual breast tanning/hyperpigmentation. Lumpectomy bed seroma vs scar tissue centered under the surgical scar now measuring 1 x 1.5 cm is stable (measured up to 4 x 3 cm previously). No suspicious right breast masses or skin lesions. Examination of the LEFT breast is unremarkable, with no erythema, edema, masses, or suspicious skin lesions. NEUROLOGIC / PSYCHOLOGIC: ?Alert. ?Speech is fluent and comprehension appears intact. Normal affect and mood. Moves all 4 extremities well. Gait steady. - Vital Signs Vital Signs - 24 hr 03/19/23 10:43 Temperature 36.8 C Pulse Rate 70 Blood Pressure 138/74 Pulse Oximetry 99
[2024-03-14 10:54] VITALS: BP 112/56; PULSE 74; TEMP 36.3; O2SAT 98
--- NOTE | 2024-03-14 12:44 | PDRADONCFUV ---
Follow Up Note - Date/Time 03/14/24 12:44 - Interval History Date 03/14/24 Diagnosis: Breast Cancer, RIGHT 9:00/lateral, pTis Nx, ER(+) Clinical Stage 0is (Tis Nx Mx) Date of Diagnosis: 03/11/2021 Genetic Testing: none Path: 25 mm G1 DCIS, no necrosis, (-)mar(1 mm posterior), (+)ADH Prognostic Factors: ER/CT(+)100% Surgeon(s): Dr Zack Casanova ([facility]) Surgery: RT Lumpectomy (04/14/2021) Med Onc: Rachell Chemo: none Rad Onc: Rita Radiation: 05/28 - 06/25/2021; RIGHT whole breast hypofractionation Right Breast 4256 cGy at 266 cGy x 16 fractions Breast Boost 1000 cGy at 250 cGy x 4 fractions Endocrine Therapy: Anastrozole (started 07/2021) --> VAUGHN (started 06/2022) Identification: Christelle Maria is a 67 year old female who underwent an excisional biopsy for mammographically-occult pathologic stage 0is (Tis Nx Mx) ER/CT(+) 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 She received hypofractionated whole breast radiation between 05/28/2021 and 06/25/2021, then she was subsequently started on Arimidex and switched to Tamoxifen in 06/2022. She returns now for routine follow-up. She is by herself today. Interval History: Since she was last seen, Ms. Maria continues to do well. She continues on Tamoxifen which she is tolerating well. She denies unintentional weight loss, frequent or severe?headaches,?persistent?cough,?chest pain, abdominal/pelvic?discomfort, new bone pain, arm pain or swelling,?or any other new breast symptomatology. She saw Dr. Lovett's DIRECTOR OF SOFTWARE DEVELOPMENT on 11/05/23. Bilateral screening 3D mammogram from 04/2023 showed no concern for recurrent or new malignancy. She is a lifelong non-smoker. She walks daily for exercise, does 16-hour intermittent fasting, and reports having a healthy lower-fat diet. Cancer Screening Last Bilateral Mammogram: 04/2023 Last PAP Test: 05/2021 (s/p hyst, still has 1 ovary) --> no further routine PAP testing was recommended per patient Last Colonoscopy: 2018. H/o adenomatous polyps. F/U in 5 years was recommended. Due in 2023. Lymphedema History None Oncology History: Oncology Summary Breast Cancer, RIGHT 9:00/lateral, pTis Nx, ER(+) 01/13/2021 Bilat Screen 3D MG: Heterogeneously dense. No suspicious mass, microcalcification, or architectural distortion in either breast. 02/12/2021 RT Breast US: At 9:00, 6 cm from the nipple is a stable 2 x 4 mm circumscribed hypoechoic lesion consistent with benign process. At 9:00, 7 cm from the nipple is a 3.5 x 6.2 mm circumscribed solid mass which is increased in size compared to 05/2019. 03/11/2020 RT Breast Core Bx, [facility]: Biopsy marker in expected position at 9:00 Path: atypical ductal hyperplasia associated with calcifications 04/14/2021 RT Lumpectomy (Dr Zack Casanova), [facility] Specimen X-Ray: Localization wire and adjacent biopsy marker within lumpectomy specimen Path: 25 mm G1 DCIS, no necrosis, (-)mar(1 mm posterior), ER/CT(+)100% 06/25/2021 Radiation (Dr Salinas): RIGHT whole breast hypofractionation Right Breast 4256 cGy at 266 cGy x 16 fractions Breast Boost 1000 cGy at 250 cGy x 4 fractions 07/2021 - Endocrine Rx (Dr Lovett): Anastrozole (07/2021-05/2022) --> VAUGHN (started 06/2022) Presentation / Summary Bilateral screening mammogram in January 2021 was unremarkable. Right breast ultrasound in February as a 6-month follow-up of two right breast masses demonstrated interval increase in size of a 6.2 mm mass at 9:00 located 7 cm from the nipple, prompting further evaluation. She had no preceding breast symptomatology. No prior breast biopsies. Ultrasound-guided core biopsy demonstrated atypical ductal hyperplasia. Excisional biopsy was performed on 04/14/2021: no invasive cancer and margins negative by at least 1 mm. Saw her surgeon in follow-up and no margin reexcision was recommended. She received hypofractionated whole breast radiation between 05/28/2021 and 06/25/2021. 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 Menarche: age 13 Menopause: age 39 OCP: Remote history, < 5 yrs HRT: Remote history, < 5 yrs S/p hysterectomy, still has 1 ovary Additional Social/Medical History Single. Lives in [place], [place]. Retired from [employer]. Exercise: Walks daily Prior Radiation: none Implanted Cardiac Devices: none Tobacco: no history of smoking Inflammatory Bowel Disease: none Collagen Vascular Disorders: (Lupus, Scleroderma, RA): none (sister has lupus) Review of Systems: (+)History of Encephalitis a few years ago with persistent difficulty with spelling and reading Remaining systems negative unless otherwise stated in the history Pain Assessment and Management: Pain Assessment: 0/10 (no pain) Pain Management: no pain (no intervention needed) Assessment She has no clinical evidence of recurrence. Physical Examination ECOG 0 GENERAL: Well-developed, well-nourished female resting comfortably in the exam room, in no acute distress. LYMPHATICS: No cervical, supraclavicular, infraclavicular, or axillary adenopathy. LUNGS: Breathing comfortably on RA EXTREMITIES: No arm/hand lymphedema. Good range of motion of both upper extremities. No clubbing or cyanosis. BREASTS: Within both inframammary folds there is mild erythema with no moist areas or odor. Examination of the RIGHT breast demonstrates a well healed lumpectomy incision in the lateral aspect of the breast with slight retraction, unchanged. No breast erythema. Mild edema limited to the nipple-areolar complex, unchanged. No significant residual breast tanning/hyperpigmentation. Lumpectomy bed scar tissue centered under the surgical scar. No suspicious right breast masses or skin lesions. Examination of the LEFT breast is unremarkable, with no erythema, edema, masses, or suspicious skin lesions. NEUROLOGIC / PSYCHOLOGIC: ?Alert. ?Speech is fluent and comprehension appears intact. Normal affect and mood. Moves all 4 extremities well. Gait steady. Examined with Sue. Rachel RN Plan 1. Return for follow-up in 1 year. 2. Encouraged continued regular moderate exercise (30 minutes 5 days/week or 150 minutes/week). Studies have shown lower breast cancer recurrence risk and cancer risk in general. 3. Continue Tamoxifen per Dr Lovett which she is tolerating well. 4. Seeing Dr. Lovett's DIRECTOR OF SOFTWARE DEVELOPMENT in 05/2024 (q6mo). She has no routine scheduled follow-up with her breast surgeon, Dr. Casanova. 5. Bilateral mammograms are scheduled in April 2024. 6. She was encouraged to call with questions or concerns prior to her next appointment. Oswald Segovia MD Time spent: 30 min H&P - Exam - Vital Signs Vital Signs - 24 hr 03/14/24 10:54 Temperature 36.3 C L Pulse Rate 74 Blood Pressure 112/56 L Pulse Oximetry 98
[2025-03-13 11:17] VITALS: BP 133/64; PULSE 87; RESP 12; TEMP 36.7; O2SAT 98
--- NOTE | 2025-03-13 11:29 | P.RADPN_ITS ---
Follow Up Note Date/Time Date/Time: 03/13/25 11:29 Identifying Data Identifying Data: Diagnosis: Breast Cancer, RIGHT 9:00/lateral, pTis Nx, ER(+) Clinical Stage 0is (Tis Nx Mx) Date of Diagnosis: 03/11/2021 Genetic Testing: none Path: 25 mm G1 DCIS, no necrosis, (-)mar(1 mm posterior), (+)ADH Prognostic Factors: ER/WY(+)100% Surgeon(s): Dr Zack Casanova ([facility]) Surgery: RT Lumpectomy (04/14/2021) Med Onc: Rachell Chemo: none Rad Onc: Rita Radiation: 05/28 - 06/25/2021; RIGHT whole breast hypofractionation Right Breast 4256 cGy at 266 cGy x 16 fractions Breast Boost 1000 cGy at 250 cGy x 4 fractions Endocrine Therapy: Anastrozole (started 07/2021) --> VAUGHN (started 06/2022) Identification: Christelle Maria is a 67 year old female who underwent an excisional biopsy for mammographically-occult pathologic stage 0is (Tis Nx Mx) ER/WY(+) 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 She received hypofractionated whole breast radiation between 05/28/2021 and 06/25/2021, then she was subsequently started on Arimidex and switched to Tamoxifen in 06/2022. She returns now for routine follow-up. She is by herself today. Interval History Interval History: Very pleasant lady who was evaluated for right knee surgery and was found to have a 23 cm right abdominal mass which is presumed to be an ovarian mass and is scheduled for surgery in last week of March. After being diagnosed patient realizes and gives me history of possible back aches, on and off increased urination. Denies any weight lossor significant changes in her appetite. H&P - Exam General: Very pleasant lady who is here for a follow-up of her known DCIS of her right breast. Her last mammogram being in April of 2024 with results being no signs of clinical recurrence. Patient is on tamoxifen and has been tolerating very well. Vital Signs: Vital Signs - 24 hr 07/08/25 11:17 Temperature 36.7 C Pulse Rate 87 Respiratory Rate 12 Blood Pressure 133/64 Pulse Oximetry 98 Exam Other physical findings: With the breast appears to be unremarkable with NAC complex. The right breast is smaller than the left with very minimal changes in the contour. The volume appears to be about 25% less than the left and patient does not think it is att ributed to radiation. No palpable masses and no signs of skin induration or fibrosis of the breast along the scar area. Cardiovascular respiratory examination and unremarkable. Patient has of firm palpable mass in the right upper quadrant with the consistency of liver. With well circumscribed mass. Radiologic Data: Reviewed in EHR Assessment/Plan Assessment Assessment: Very pleasant 69-year-old lady with a known diagnosis of right breast DCIS status post radiation on antihormonal therapy with no signs of clinical recurrence. Plan Plan: Patient was recommended to follow-up in 1 year for further evaluation and management
== END 2025-03-13 11:37 ==
LOC: AMCRADONC 11:00
PROVIDERS: PCP Internal Medicine; Referring Provider Surgery; Visit Provider Radiology Radiation Oncology
DX: C50.411 Malignant neoplasm of upper-outer quadrant of right female breast (principal); Z17.0 Estrogen receptor positive status [ER+]; Z08 Encounter for follow-up examination after completed treatment for malignant neoplasm; R00.2 Palpitations; R06.09 Other forms of dyspnea; R35.0 Frequency of micturition; R53.83 Other fatigue; M81.0 Age-related osteoporosis without current pathological fracture; Z79.811 Long term (current) use of aromatase inhibitors; Z79.810 Long term (current) use of selective estrogen receptor modulators (SERMs); Z98.890 Other specified postprocedural states; Z90.710 Acquired absence of both cervix and uterus; Z92.3 Personal history of irradiation; Z80.3 Family history of malignant neoplasm of breast; Z80.0 Family history of malignant neoplasm of digestive organs; Z80.42 Family history of malignant neoplasm of prostate; Z80.8 Family history of malignant neoplasm of other organs or systems
CPT/HCPCS: 77280; 77290; 77295; 77300; 77307; 77334; 77336; 77412; 77417; 99212; G0463